=== PATIENT | female | born 1955 | race Caucasian/White ===

== ENCOUNTER 2017-11-09 11:24 | Emergency (ER) | payer OTHER, SELFPAY ==
[2017-11-09 11:25] VITALS: BP 152/85; PULSE 83; RESP 16; TEMP 36.6; O2SAT 98; BMI 34.9
--- NOTE | 2017-11-09 11:53 | VDLE_ITS ---
Reason For Study: PAIN Procedure LEFT Exam performed portable in ED. GSV is normal. A preliminary report was called and/or faxed CFV is compressible, spontaneous, phasic, to ED. competent, and demonstrates normal augmentation. FV is compressible, spontaneous, phasic, competent and demonstrates normal augmentation. POP V is compressible, spontaneous, phasic, competent and demonstrates normal augmentation. T/P Trunk is compressible. PTV is compressible. LT PerV is compressible. Interpretation Summary Deep veins of the left lower extremity are patent and compressible segmentally. There is no evidence of left lower extremity deep vein thrombosis. Valvular competence appears intact within the proximal deep venous system on the left . The left greater saphenous vein appears patent and compressible segmentally. Ordering Physician: LEATHA LYN Referring Physician: VANNESSA MACKENZIE Performed By: Meche Gonzales, ANTON, RVT
--- NOTE | 2017-11-09 11:59 | ED.DCSUM_ITS ---
- ER Visit Summary Date of Service: 11/09/17 Chief Complaint: Left lower extremity pain History of Present Illness: The patient is a 62 F with 2-3 days gradual onset of pain in the left lower extremity, mostly the thigh and the distal lateral calf. She has a history of rheumatoid arthritis and did not know if this was a knee problem or not, so she had a cortisone injection in her left knee yesterday , but it did not seem to help. She denies any swelling. No history of DVT or PE, no chest pain or shortness of breath or other systemic symptoms recently. No recent travel, mobilization, hospitalization, leg injury or other injury. She takes no anticoagulants or antiplatelets. Physical Examination: Vital signs are unremarkable. No tachycardia. She is well-appearing in no distress. Obese. Multiple varicose veins in the left lower extremity, all of which are nontender. No palpable cords. No edema bilaterally. No cellulitis. Mild tenderness in the left lateral calf, but not tender posteriorly and all compartments are soft and nondistended. She has full range of motion of all joints of the left lower extremity. She has an excellent dorsalis pedis pulse in the left lower extremity. No discoloration compared with the right. No petechiae. Test Results: Left lower extremity venous duplex Doppler is negative for clot. Emergency Department Course and Treatment: Although patient was not examining exactly like a DVT, she does have a lot of varicose veins, which is a risk factor for developing spontaneous DVTs. Acute DVT is ruled out at this time, making it much more likely that she is having muscular pain. Supportive care advised, and close outpatient follow-up and she is comfortable with this plan. Treatment Plan: Supportive care Disposition: Discharge home Impression: Left lower extremity pain This note was generated with [employer] dictation software. It may contain incorrect words, spelling, and punctuation that were not noted in review of the chart prior to signing ED Disposition - Plan for ED Patient: Disposition: Home or Assisted Living Chief Complaint: Lower Extremity Injury Instructions: ED Strain Muscle Ext Referrals: Gena Hernandez MD [Primary Care Provider] - 3-5 Days if not improving
== END 2017-11-09 14:05 | disposition home or self-care (01) ==
PROVIDERS: Emergency Provider Emergency Medicine; Family Provider Family Medicine; PCP Family Medicine
DX: M79.662 Pain in left lower leg (principal); M79.652 Pain in left thigh; I83.92 Asymptomatic varicose veins of left lower extremity; M06.9 Rheumatoid arthritis, unspecified
CPT/HCPCS: 93971; 99282

== ENCOUNTER 2022-01-26 09:16 | Outpatient (RCR) | payer MEDICAID, SELFPAY ==
[2022-01-26 09:58] VITALS: BP 169/80; PULSE 95; RESP 16; TEMP 36.4; BMI 42.9
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
== END 2022-01-26 15:39 | disposition home or self-care (01) ==
LOC: WC 09:16
PROVIDERS: PCP Internal Medicine; Visit Provider Internal Medicine
DX: T24.012A Burn of unspecified degree of left thigh, initial encounter (principal); X10.1XXA Contact with hot food, initial encounter; Y92.9 Unspecified place or not applicable
CPT/HCPCS: 99203; G0463

== ENCOUNTER 2025-04-08 20:25 | Observation (INO) | payer MEDICARE, SELFPAY ==
[2025-04-08 20:25] VITALS: BP 136/109; PULSE 128; RESP 16; TEMP 37.1; O2SAT 98
[2025-04-08 20:30] VITALS: BP 136/109; PULSE 128; RESP 16; TEMP 37.1; O2SAT 98; BMI 46.1
[2025-04-08 20:51] LABS: Hematocrit 37.6 % (37-47); Hemoglobin 11.3 g/dL (12.0-15.0); Immature Granulocytes Count 0.070 X10^3/uL (0.0-0.0); Mean Corp Hgb Conc 30.1 g/dL (32-36); Mean Corpuscular Volume 75.2 fL (81-99); Mean Platelet Vol. 11.4 fl (6.2-12.0); NRBC Flagged by Analyzer 0 % (0-5); Platelet Count 482 K/mm3 (150-450); RBC Distribution Width CV 17.3 % (11.6-14.6); RBC Distribution Width SD 45.8 fl (35.1-43.9); Red Blood Count 5.00 M/mm3 (4.2-5.4); White Blood Count 17.1 K/mm3 (4.4-11.0)
[2025-04-08 21:11] LABS: Lipase 15 U/L (13-75)
[2025-04-08 21:12] LABS: AST(SGOT) 32 U/L (<=31); Alanine Aminotransfer ALT/SGPT 15 U/L (<=34); Albumin, Serum 4.1 g/dL (3.4-4.8); Alkaline Phosphatase 68 U/L (35-104); Anion Gap 15 (5-15); BUN 22 mg/dL (4-19); BUN/Creat Ratio 20.6 RATIO (10-20); Calcium,Total 9.3 mg/dL (7.6-11.0); Carbon Dioxide 20.7 mmol/L (21.0-32.0); Chloride 104 mmol/L (98-108); Estimated Creatinine Clearance 64.26 ml/min (50-250); Globulin 3.7 g/dL (2.2-4.2); Glucose 179 mg/dL (70-99); Potassium 4.4 mmol/L (3.3-5.1)
[2025-04-08 22:19] VITALS: BP 176/73; PULSE 102; RESP 16; TEMP 37.1; O2SAT 92
[2025-04-08 22:21] LABS: Mucous, Urine 0 SEEN /hpf (<or=2+); Red Blood Cells-Urine 0 SEEN /hpf (0-5)
[2025-04-08 22:28] LABS: Color, Urine Yellow (Yellow); Glucose, Dipstick Normal (Normal); Ketone-Dipstick 5 mg/dl (Negative); Leukocyte Esterase-Dipstick 25 /ul (Negative); Nitrite-Dipstick Negative (Negative); Occult Blood-Urine Negative /ul (Negative); Protein-Dipstick 30 mg/dl (Negative); Specific Gravity, Urine 1.025 (1.002-1.030)
[2025-04-08 22:31] LABS: Urine Bilirubin Dipstick 1 mg/dL (Negative)
[2025-04-08] MEDS: 0.9% Normal Saline (1000mL) 1,000 ML 999 ML IV (22:33)
--- OUTSIDE RECORDS SUMMARY | 2025-04-08 22:37 | XMS RPT_ITS | CCD ---
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 data to display Anxiety/Depression screening Recommendation: no further intervention at this time Cognitive screening Mini Cog Score: 3 Cognitive screening reviewed and No further action needed (score 3-5). Functional Observation Was the patient's Timed Up AND Go test unsteady or >= 12 seconds? No Advance Care Planning Patient did not wish or was not able to name a surrogate decision maker or provide an advance care plan Measurements BP 141/84 Pulse 90 Ht 163 cm (5' 4.17) Wt 119.5 kg (263 lb 6.4 oz) SpO2 98% BMI 44.97 kg/m? Vision Screening: Follows with optometry/ophthalmology Assessment/Plan Medicare annual wellness visit, subsequent (.) - Counseled on healthy diet and regular exercise - Fall avoidance information provided - Personalized prevention plan provided Reason for Visit FAITH Humphrey is a 69-year-old female presenting for a Medicare Annual Wellness Visit. Milagro reports her general health as good and engages in approximately 30 minutes of exercise daily, including stretching exercises and walking. She estimates walking 8,000-9,000 steps daily around her apartment and can walk continuously for 30 minutes. She denies any feelings of imbalance, sadness, depression, or anxiety, and is excited about her daughter's upcoming visit in June. She follows a healthy diet, finding recipes online, and denies alcohol or tobacco use. She does not drive due to nervousness and fear, preferring to walk instead. She reports no issues with hearing and recently obtained new glasses, stating her vision is pretty good. Milagro takes naloxone 1-2 times daily for pain management and a multivitamin containing vitamin D. She denies symptoms of fatigue, depression, difficulty getting out of bed, cognitive issues, or excessively dry skin. She has not yet completed a living will or advanced directives but plans to discuss this with her daughter during her visit. Social History Tobacco Use Smoking status: Never Smokeless tobacco: Never Vaping Use Vaping status: Never Used Substance Use Topics Alcohol use: No Drug use: No Past medical history, appointments, medications, allergies reviewed. Pertinent Lab/Diagnostic Studies are reviewed and discussed today Current Outpatient Medications: naproxen (NAPROSYN) 500 mg tablet Multivitamin capsule Health Maintenance DTaP,Tdap,Td Vaccine(1 - Tdap) RSV Vaccine(1 - Risk 60-74 years 1-dose series) Mammogram Screening Colorectal Cancer Screening Covid-19 Vaccine( season) Advance Directive Discussion Depression Screening Anxiety Screening@ Review Of Systems Constitutional: (-) fatigue Eyes: (-) visual disturbances Ears/Nose/Mouth/Throat: (-) hearing changes Neck: (-) lumps Genitourinary: (+) urinary frequency Skin: (-) dryness Neurological: (-) balance problems Psychiatric: (-) depression, (-) anxiety Physical Exam BP 141/84 Pulse 90 Ht 163 cm (5' 4.17) Wt 119.5 kg (263 lb 6.4 oz) SpO2 98% BMI 44.97 kg/m? GENERAL: NAD, alert and oriented SKIN: unremarkable, no rash or skin lesions. HEAD: normocephalic EYES: PERRLA, EOMI, conjunctiva clear EARS: external ears normal, canals clear, TM's normal. NOSE/SINUSES: Nares normal. Septum midline. OROPHARYNX: lips, mucosa, and tongue normal, good dentition. No oral lesions noted. NECK: Supple, no lymphadenopathy, normal thyroid, no (more content not included)... Normal [facility] Comprehensive metabolic 2000 panelon 12-23-2024 Albumin [Mass/Vol] 4.1 g/dL Normal 3.9-4.9 [facility] Comment on above: Order Comment: Deisi childers Type: BLOOD SPECIMENOrdering Facility: [facility] Address: [address] [place] [address] Performed By: #### 2 0203-8, 8852-9 ####[facility] LABCLIA [id number] [place] [address] [place] ALP [Catalytic activity/Vol] 66 U/L Normal 34-123 [facility] Comment on above: Order Comment: Speci men Type: BLOOD SPECIMENOrdering Facility: [facility] Address: [address] [place] [place] [id number] Performed By: #### 2 4323-04, 2132-05 ####[facility] LABCLIA [id number] [address] [place] [address] [place] ALT [Catalytic activity/Vol] 14 U/L Normal 7-38 [facility] Comment on above: Order Comment: Speci men Type: BLOOD SPECIMENOrdering Facility: [facility] Address: [address] [place], [place] [address] Performed By: #### 2 4323-04, 2132-05 ####[facility] LABCLIA [id number] [address], [facility] [place] Anion gap [Moles/Vol] 8 mmol/L Normal 8-15 [facility] Comment on above: Order Comment: Speci men Type: BLOOD SPECIMENOrdering Facility: [facility] Address: [address] [place] [id number] Performed By: #### 2 4323-04, 2132-05 ####[facility] LABIA [id number] [place] [address] [place] AST [Catalytic activity/Vol] 21 U/L Normal 13-35 [facility] Comment on above: Order Comment: Speci men Type: BLOOD SPECIMENOrdering Facility: [facility] Address: [address] [place], [place] [address] Performed By: #### 2 4323-04, 2132-05 ####[facility] LABIA [id number] [place] [address] [place] Bilirubin [Mass/Vol] 0.2 mg/dL Normal 0.2-1.3 [facility] Comment on above: Order Comment: Speci men Type: BLOOD SPECIMENOrdering Facility: [facility] Address: [address] [place], [place] [address] Performed By: #### 2 4323-04, 2132-05 ####[facility] LABCLIA [id number] [facility] [place] [id number] [address] [place] Calcium [Mass/Vol] 9.1 mg/dL Normal 8.5-10.2 [facility] Comment on above: Order Comment: Speci men Type: BLOOD SPECIMENOrdering Facility: [facility] Address: [address] [place] [address] Performed By: #### 2 4323-04, 2132-05 ####[facility] LABCLIA [id number] [facility] [address] [place] [address] [place] Chloride [Moles/Vol] 104 mmol/L Normal 98-107 [facility] Comment on above: Order Comment: Speci men Type: BLOOD SPECIMENOrdering Facility: [facility] Address: [address] [place] [address] Performed By: #### 2 4323-04, 2132-05 ####[facility] LABCLIA [id number] [facility] [address] [place] [address] [place] CO2 [Moles/Vol] 27 mmol/L Normal 22-30 [facility] Comment on above: Order Comment: Speci men Type: BLOOD SPECIMENOrdering Facility: [facility] Address: [address] [place], [place] [id number] Performed By: #### 2 4323-04, 2132-05 ####[facility] LABCLIA [id number] [facility] [address] [place] [address] [place] Creatinine [Mass/Vol] 0.85 mg/dL Normal 0.58-0.96 [facility] Comment on above: Order Comment: Speci men Type: BLOOD SPECIMENOrdering Facility: [facility] Address: [address] [place], [place] [address] Performed By: #### 2 4323-04, 2132-05 ####[facility] LABCLIA [id number] [facility] [address] [place] [address] [place] Creatinine and Glomerular filtration rate.predicted panel (S/P/Bld) 75 mL/min/1.73m??? Normal >=60 [facility] Comment on above: Order Comment: Deisi childers Type: BLOOD SPECIMENOrdering Facility: [facility] Address: [address] [place] [address] Result Comment: Lana mated Glomerular Filtration Rate (eGFR) is calculated using the 2020 CKD-EPI creatinine equation. This equation utilizes serum creatinine, sex, and age as parameters. The creatinine assay has traceable calibration to isotope dilution-mass spectrometry. Refer to KDIGO guidelines for clinical interpretation. In patients with unstable renal function, e.g. those with acute kidney injury, the eGFR may not accurately reflect actual GFR. Performed By: #### 2 432-8, 2132-05 ####[facility] LABCLIA [id number] [place] [address] [place] Glucose [Mass/Vol] 103 mg/dL High 74-99 [facility] Comment on above: Order Comment: Deisi childers Type: BLOOD SPECIMENOrdering Facility: [facility] Address: [address] [place] [address] Result Comment: The [place] Diabetes Association (ADA) provides guidance for cutoff values for fasting glucose and random glucose. The ADA defines fasting as no caloric intake for at least 8 hours. Fasting plasma glucose results between 100 to 125 mg/dL indicate increased risk for diabetes (prediabetes). Fasting plasma glucose results greater than or equal to 126 mg/dL meet the criteria for diagnosis of diabetes. In the absence of unequivocal hyperglycemia, results should be confirmed by repeat testing. In a patient with classic symptoms of hyperglycemia or hyperglycemic crisis, random plasma glucose results greater than or equal to 200 mg/dL meet the criteria for diagnosis of diabetes. Reference: Standards of Medical Care in Diabetes 2016, [place] Diabetes Association. Diabetes Care. 2016.39(Suppl 1). Performed By: #### 2 4323-8, 2132-05 ####[facility] LABCLIA [id number] [address] [address] [place] Potassium [Moles/Vol] 5.0 mmol/L Normal 3.7-5.1 [facility] Comment on above: Order Comment: Speci men Type: BLOOD SPECIMENOrdering Facility: [facility] Address: [address] [place] [address] Performed By: #### 2 432-8, 2132-05 ####[facility] LABCLIA [id number] [address] [address] [place] Protein [Mass/Vol] 6.9 g/dL Normal 6.3-8.0 [facility] Comment on above: Order Comment: Speci men Type: BLOOD SPECIMENOrdering Facility: [facility] Address: [address] [place] [address] Performed By: #### 2 4328, 2132-05 ####[facility] LABCLIA [id number] [address] [address] [place] Sodium [Moles/Vol] 139 mmol/L Normal 136-144 [facility] Comment on above: Order Comment: Speci men Type: BLOOD SPECIMENOrdering Facility: [facility] Address: [address] [place] [address] Performed By: #### 2 8, 2132-05 ####[facility] LABCLIA [id number] [address] [address] [place] Urea nitrogen [Mass/Vol] 25 mg/dL High 7-21 [facility] Comment on above: Order Comment: Speci men Type: BLOOD SPECIMENOrdering Facility: [facility] Address: [address] [place], [place] [address] Performed By: #### 2 4323-8, 2132-05 ####[facility] LABCLIA [id number] [address] [address] [place] HbA1c (Bld)on 12-23-2024 Average glucose Estimated from glycated hemoglobin (Bld) [Mass/Vol] 111 mg/dL Normal [facility] Comment on above: Order Comment: Speci men Type: BLOOD SPECIMENOrdering Facility: [facility] Address: [address] [place] [address] Result Comment: eAG: (Estimated average glucose) is a calculated value from HgbA1c and is pest control service representative of the average blood glucose level in the last 2-3 month period. Performed By: #### 5 5454-3 ####[facility] LABCLIA [id number] [place] [address] [place] HbA1c (Bld) [Mass fraction] 5.5 % Normal 4.3-5.6 [facility] Comment on above: Order Comment: Deisi childers Type: BLOOD SPECIMENOrdering Facility: [facility] Address: [address] [place] [address] Result Comment: [place] Diabetes Association guidelines indicate that patients with HgbA1c in the range 5.7-6.4% are at increased risk for development of diabetes, and intervention by lifestyle modification may be beneficial. HgbA1c greater or equal to 6.5% is considered diagnostic of diabetes. Performed By: #### 5 5454-3 ####[facility] LABIA [id number] [place] [address] [place] Vit B12 [facility] 15-2 025 Cobalamin (Vitamin B12) [Mass/Vol] 491 pg/mL Normal 232-1245 [facility] Comment on above: Order Comment: Deisi childers Type: BLOOD SPECIMENOrdering Facility: [facility] Address: [address] [place] [address] Performed By: #### 2 4323-8, 2132-9 ####[facility] LABIA [id number] [place] [address] [place] CNOVon 11-13-2024 CNOV Office Visit (PODIWS ) -------- MILAGRO COTTRELL ([id number]) 1955 F Date Time Provider Department 11/13/24 10:30 AM EMILY RIBERA During your visit today, we recorded the following information about you: Luma Hooks LPN 11/13/2024 1:54 PM Signed AMB ROOMING INTAKE FLOWSHEET DATA Patient presents with: Right Great Toe - Established Patient, Follow Up, procedure Luma ISRA Hooks Matthew 11/13/2024 11:19 AM Signed Your wound is now healed You no longer require a bandage If you have any issues, please contact our office Emily Ribera 11/13/2024 1:54 PM Signed FOLLOW UP PODIATRIC OFFICE VISIT Chief Complaint: This 69 year old who presents for follow up:right great toenail avulsion Patient presents to clinic for follow-up right great toenail avulsion. Patient has no complaints. Patient is doing well. PAIN EVALUATION No data found in the last 1 encounters. Hemoglobin A1C Date Value Ref Range Status 01/14/2024 5.8 (H) 4.3 - 5.6 % Final Comment: [place] Diabetes Association guidelines indicate that patients with HgbA1c in the range 5.7-6.4% are at increased risk for development of diabetes, and intervention by lifestyle modification may be beneficial. HgbA1c greater or equal to 6.5% is considered diagnostic of diabetes. PCP: Olivier Gomes MD PAST MEDICAL HISTORY Diagnosis Date RA (rheumatoid arthritis) ([facility]) Current Outpatient Medications Medication Sig naproxen (NAPROSYN) 500 mg tablet take 1 tablet by mouth twice a day if needed for pain with food Multivitamin capsule Take 1 capsule by mouth once daily. No current facility-administered medications for this visit. ALLERGIES Allergen Reactions Latex Rash Penicillins Rash, Hives, Itching Sulfamethoxazole Itching Tape [Adhesive Tape* Rash paper tape PAST SURGICAL HISTORY Procedure Laterality Date SNGL 05/31/1987 Physical Exam: OBJECTIVE: Constitutional: Pt is a well developed 69 year old female who is alert, oriented, cooperative and in no apparent distress. Eyes: Following during examination. No redness or drainage. Respiratory: RR normal and nonlabored. Even breathing. No evidence of distress. Psychology: Patient is engaged during conversation. Normal affect and mood. Does not appear depressed or anxious. NVSI unchanged from previous visit. Dermatological: Right great toe is now healed s/p total nail avulsion Musculoskeletal/Orthopae dic: Patient has no pain to palpation of right foot ASSESSMENT: (S91.109A) Open wound of toe, initial encounter (primary encounter diagnosis) PLAN: Patient's nail bed is now healed She no longer requires bandage If nail deformity were to return, could consider permanent nail procedure Follow-up prn Emily Ribera DPM Referring Provider: EMILY RIBERA [[id number]] Allergies As of Date: 11/13/2024 Noted Allergy Reaction LATEX 09/22/2024 2 - Rash PENICILLINS 05/20/2018 2 - Rash 4 - Hives 9 - Itching SULFAMETHOXAZOLE 06/23/2022 9 - Itching TAPE (ADHESIVE TAPE (ROSINS)) 06/23/2022 2 - Rash Comments: paper tape Date Reviewed: 11/13/2024 Reviewed by: Luma Hooks LPN - Fully Assessed Reason for Visit: Established Patient [175] Follow Up [171] procedure [Other] Primary Visit Diagnosis:Open wound of toe, initial encounter [S91.109A] Prescriptions as of 11/13/2024 - naproxen (NAPROSYN) 500 mg tablet take 1 tablet by mouth twice a day if needed for pain with food - Multivitamin capsule Take 1 capsule by mouth once daily. Problem List As Of Date 11/13/2024 Noted Resolved Knee pain [M25.569] 12/13/2018 Other instructions from your clinician: Your wound is now healed You no longer require a bandage If you have any issues, please contact our office Encounter Status:Closed by EMILY RIBERA DPM on 11/13/24 [facility] [place] 10-25-2024 IMTIAZN Telephone (PODIWS) -------- MILAGRO COTTRELL ([id number]) 1955 F Date Time Provider Department 10/25/24 EMILY RIBERA During your visit today, we recorded the following information about you: Emily Ribera 10/25/2024 9:05 AM Signed Please call patient to inform her that xrays do not show any acute pathology or fracture TROY Mccabe Amelia, LPN 10/27/2024 3:15 PM Signed Patient notified of results and provider's instructions. Patient verbalizes understanding. Patient states toe is feeling better. Luma Hooks LPN Allergies As of Date: 10/25/2024 Noted Allergy Reaction LATEX 09/22/2024 2 - Rash PENICILLINS 05/20/2018 2 - Rash 4 - Hives 9 - Itching SULFAMETHOXAZOLE 06/23/2022 9 - Itching TAPE (ADHESIVE TAPE (ROSINS)) 06/23/2022 2 - Rash Comments: paper tape Date Reviewed: 10/23/2024 Reviewed by: Natalia De La Garza MA - Fully Assessed Reason for Visit: Results [95] Prescriptions as of 10/27/2024 - naproxen (NAPROSYN) 500 mg tablet take 1 tablet by mouth twice a day if needed for pain with food - Multivitamin capsule Take 1 capsule by mouth once daily. Problem List As Of Date 10/25/2024 Noted Resolved Knee pain [M25.569] 12/13/2018 Encounter Status:Closed by LUMA HOOKS on 10/27/24 [facility] CNOVon 10-23-2024 CNOV Office Visit (PODIWS ) -------- MILAGRO COTTRELL ([id number]) 1955 F Date Time Provider Department 10/23/24 9:30 AM EMILY RIBERA During your visit today, we recorded the following information about you: Natalia De La Garza MA 10/23/2024 10:39 AM Signed Patient presents with: Right Great Toe - New, Pain AMB ROOMING INTAKE FLOWSHEET DATA Pain Pain Level: 8 Pain Location: (Right great toe) Description: Aching, Throbbing Duration Amount of Time: 1 Duration Units: Days Frequency: Intermittent Intervention/Comfort measure: (none) Patient states yesterday she hit her right great toe on a case of water. Patient states it tore her nail. Patient has been keeping a dressing on toe. Dressing removed. Patient's toe is bleeding. Taking no med's for the pain. Emily Ribera 10/23/2024 10:39 AM Signed Initial Podiatric Office Visit: Chief Complaint: This 69 year old female who presents with chief complaint:lifting of right great toenail HPI Patient presents to clinic for evaluation of right great toe States that she stubbed her right great toe on a case of water and this led to lifting of the nail. She states the rigth great toe is now bleeding and the toenail is lifting She complains of thick discolored toenail with pain. PAIN EVALUATION 10/23/2024 0932 Pain Level: 8 Pain Location: -- Right great toe Description: Aching;Throbbing Duration Amount of Time: 1 Duration Units: Days Frequency: Intermittent Intervention/Comfort measure: -- none Hemoglobin A1C (%) Date Value 01/14/2024 5.8 06/24/2022 5.6 PCP: Olivier Gomes MD PAST MEDICAL HISTORY Diagnosis Date RA (rheumatoid arthritis) ([facility]) Current Outpatient Medications Medication Sig naproxen (NAPROSYN) 500 mg tablet take 1 tablet by mouth twice a day if needed for pain with food Multivitamin capsule Take 1 capsule by mouth once daily. No current facility-administered medications for this visit. ALLERGIES Allergen Reactions Latex Rash Penicillins Rash, Hives, Itching Sulfamethoxazole Itching Tape [Adhesive Tape* Rash paper tape PAST SURGICAL HISTORY Procedure Laterality Date SNGL 05/31/1987 FAMILY HISTORY Problem Relation Age of Onset Heart Mother in 2010 Heart Father other (Other) Sister hip replacement Breast Cancer Sister Cancer Brother other (Other) Son back problems Social History Tobacco Use Smoking status: Never Smokeless tobacco: Never Vaping Use Vaping status: Never Used Substance Use Topics Alcohol use: No Drug use: No REVIEW OF SYSTEMS GENERAL: Negative for Malaise, significant weight loss, fever RESPIRATORY: Negative for cough, wheezing and shortness of breath CARDIOVASCULAR: Negative for chest pain, leg swelling and palpitations GI: Negative for abdominal discomfort, blood in stools or black stools and change in bowel habits : Negative for dysuria, frequency and incontinence MUSCULOSKELETAL: Negative for joint pain or swelling, back pain, and muscle pain. SKIN: Negative for lesions, rash, and itching. HEMATOLOGY/LYMPHOLOGY Negative for prolonged bleeding, bruising easily, and swollen nodes. ENDOCRINE: Negative for cold or heat intolerance, polyuria, polydipsia and goiter. NEURO: negative Physical Exam: Constitutional: Pt is a well developed 69 year old female who is alert, oriented and cooperative Eyes: Following during examination. No redness or drainage. Respiratory: RR normal and nonlabored. Even breathing. No evidence of distress or shortness of breath. Psychology: Patient is engaged during conversation. Normal affect and mood. Does not appear depressed or anxious during encounter. Vascular: Dorsalis pedis and posterior tibial pulses palpable as b/l Capillary Fill time < 5 seconds to digits 1-5 b/l Skin temperature warm to warm proximal to distal b/l Hair growth present to digits Neurological: intact light touch/epicritic sensation b/l intact protective sensation no significant neurological deficits Dermatological: Nails 1-5 b/l appear elongated, dystrophic, discolored, painful. Right great toenail is lifting and nail has what appears to be dry blood. Nail was removed and nail bed de. No signs of infection. Webspaces clean and dry 1-4 b/l. Skin appears well hydrated and supple. good color, texture, turgor. No open lesions present. No callosities present. Musculoskeletal/Orthopae dic: Patient has pain to palpation of right great toenail Foot type is neutral structurally AJ ROM is full with knee extended and flexed 1st MPJ is decreaed when loaded and no pain or crepitus are noted with ROM. Large bunion is present to left foot MTJ, STJ are full and free of pain and crepitus. +5/5 muscle strength dorsiflexion, plantarflexion, inversion, eversion b/l Radiographs: n/a ASSESSMENT: (S91.209A) Traumatic (more content not included)... Normal [facility] XR TOE 3V AP/LAT/OBL RTon XR TOE 3V AP/LAT/OBL RT * * *Final Report* * * DATE OF EXAM: Oct 23 2024 11:15AM [id number] [id number] - XR TOE 3V AP/LAT/OBL RT / PROCEDURE REASON: Traumatic avulsion of nail plate of toe, initial encounter * * * * Physician Interpretation * * * * EXAM(s): XR TOE 3V AP/LAT/OBL RT..... HISTORY: 69 years old Clinical information: Traumatic avulsion of nail plate of toe, initial encounter PT STATES RIGHT FOOT GREAT TOE INJURY YESTERDAY. ATTENTION DISTAL PHALANX TECHNIQUE: Images: XR TOE 3V AP/LAT/OBL RT Comparison: 10/17/2019. RESULT: Findings: No fracture. Osteopenia. Degenerative changes of the metatarsophalangeal joint of the great toe and interphalangeal joint of the great, second, and third toes. 3 mm dystrophic calcification, exostosis, or accessory ossicle at the lateral margin of the base of the distal phalanx of the great toe. Degenerative changes also noted in the visualized medial tarsal bones.. IMPRESSION: 1. Osteopenia 2 Osteoarthritis Engraver Steel Plate: PSCB Transcribe Date/Time: Oct 24 2024 3:36P Dictated by : MICKEY GOLDMAN MD This examination was interpreted and the report reviewed and electronically signed by: MICKEY GOLDMAN MD on Oct 24 2024 3:41PM EST [id number] Normal [facility] CNOVon 09-22-2024 CNOV Office Visit (GRISELWS ) -------- MILAGRO COTTRELL ([id number]) 1955 F Date Time Provider Department 09/22/24 1:[address] During your visit today, we recorded the following information about you: Luma Hooks LPN 09/22/2024 1:29 PM Signed AMB ROOMING INTAKE FLOWSHEET DATA Risk Screening Do you have concerns about personal safety or safety in the home?: No Pain Pain Level: 8 Pain Location: Knee-Right Description: Sore Duration Amount of Time: 1 Duration Units: Years Frequency: Continuous Intervention/Comfort measure: Reposition, Relaxation, Medication, Other: See comment (knee brace) Patient presents with: Right Knee - New, Knee Pain ISRA Smith Sondra, PA-C 09/22/2024 1:[address] PA-C Department of Orthopaedics Orthopaedics [address] [facility] [address] Dept: [phone] Dept September 22, [address] Olivier Gomes for an opinion regarding right knee OA. My final recommendations will be communicated back to the requesting physician by way of shared Medical record or letter to requesting physician via US mail. CHIEF COMPLAINT: New and Knee Pain of the Right Knee Ms. Milagro Cottrell is a 69 year old female who presents with worsening pain along the medial aspect of her right knee which has been bothering her for several years. Pain is worse when she first rises after sitting for a long period of time. She also has difficulty when she is walking on uneven ground or uphill. Pain is medial and is an 8 out of 10 aching. She takes naproxen on a regular basis which is beneficial for her knee pain. She also has tried a knee brace but finds it to be ill fitting. She had remote corticosteroid injections in the right knee which she reports lasted her over 1 year. No known injury to the right knee. The patient has been working on weight loss for some time, she follows a low sugar diet and tries to stay active. She enjoys walking outside in the summertime. ASSESSMENT: M17.11 Primary osteoarthritis of right knee (primary encounter diagnosis) M17.10 Arthritis of knee PLAN: She has severe right knee medial compartment osteoarthritis. We discussed trying a repeat corticosteroid injection, advised that she can repeat the injection every 91 days if she finds it to be beneficial. We briefly discussed her surgical options,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 unspecified type Ordered: 02/06/2025 [facility] Work Phone: Comment on above: Ordered: 02/06/2025 End: 06-14-2024 RAJENDRA SCREENING RAJENDRA SCREENING Radiology Routine Encounter for screening mammogram for breast cancer 1 Occurrences starting 05/16/2023 until 06/14/2024 [facility] Work Phone: Comment on above: 1 Occurrences starting 05/16/2023 until 06/14/2024 PFIZER-BIONTECH COVI D-19 VACCINE ( SEASON) AGE 12+ YR PFIZER-BIONTECH COVID-19 VACCINE ( SEASON) AGE 12+ YR Immunization/Injection Routine Encounter for immunization 1 Occurrences starting 01/14/2024 [facility] Work Phone: Comment on above: 1 Occurrences starting 01/14/2024 End: 07-14-2023 Screening mammography bi 2-view breast inc cad RAJENDRA SCREENING Radiology Routine Encounter for screening mammogram for breast cancer 1 Occurrences starting 06/14/2022 until 07/14/2023 [facility] Work Phone: Comment on above: 1 Occurrences starting 06/14/2022 until 07/14/2023 End: 07-24-2025 XR Knee - right 4 Views XR KNEE GENERAL 4V AP BOTH/PA BOTH/LAT/MERC RIGHT Radiology Routine Arthritis of knee 1 Occurrences starting 06/24/2024 until 07/24/2025 [facility] Work Phone: Comment on above: 1 Occurrences starting 06/24/2024 until 07/24/2025 XR Knee - right 4 Views XR KNEE GENERAL 4V AP BOTH/PA BOTH/LAT/MERC RIGHT Radiology Routine Arthritis of knee 06/24/2024 12:45 PM EDT [facility] End: 11-22-2025 XR Toes - right 3 Views XR TOE AP/LAT/OBL RIGHT Radiology Routine Traumatic avulsion of nail plate of toe, initial encounter 1 Occurrences starting 10/23/2024 until 11/22/2025 [facility] Work Phone: Comment on above: 1 Occurrences starting 10/23/2024 until 11/22/2025 XR Toes - right 3 Views XR TOE A P/LAT/OBL RIGHT Radiology Routine Traumatic avulsion of nail plate of toe, initial encounter 10/23/2024 11:15 AM EST [facility] Immunizations Immunization Date Immunization Notes Care Provider [facility] 06-15-2023 influenza virus vaccine, unspecified formulation Olivier Gomes MD Work Phone: [facility] 02-13-2022 zoster vaccine recombinant Olivier Gomes MD Work Phone: [facility] Work Phone: 12-11-2021 pneumococcal (PCV20) vaccine, 20 valent (PREVNAR 20) Olivier Gomes MD Work Phone: [facility] Work Phone: 12-11-2021 zoster vaccine recombinant Olivier Gomes MD Work Phone: [facility] Work Phone: 08-10-2021 influenza, injectabl e, quadrivalent, preservative free Olivier Gomes MD Work Phone: [facility] Work Phone: Payers Date Payer Category Payer Medicare (Managed Care) [facility] DUAL COMPLETE HMO POS SNP [id number] 2024 Unknown [id number] 2022 Medicare [id number] 2017 Medicaid [facility] MEDICAID [facility] COMMUNITY PLAN MEDICAID [id number] 2017-Present [phone] [address] [place] [address] Medicaid [id number] 2017 Medicaid [id number] Self-pay SELF PAY INSURANCE [id number] Unknown SELF PAY INSURANCE [id number] Unknown SELF PAY INSURANCE [id number] Unknown SELF PAY INSURANCE [id number] Social History Date Type Detail Facility Start: 05-20-2018 End: 06-23-2022 Tobacco smoking status NHIS Ex-smoker [facility] Work Phone: Start: 05-20-2018 End: 10-23-2024 Tobacco use and exposure Smokeless tobacco non-user [facility] Work Phone: Start: 01-10-2022 End: 11-13-2024 Alcohol intake Current non-drinker of alcohol (finding) [facility] Start: 1955 Sex Assigned At Not on file [facility] Start: 12-30-2021 End: 06-23-2022 Exposure to SARS-CoV-2 (event) Not sure [facility] Start: 01-26-2022 [facility] ever [facility] Work Phone: Start: 1955 Sex Assigned At Female [facility] Work Phone: History of tobacco use Current smoker [facility] Work Phone: Start: 12-22-2022 End: 06-25-2023 History of Social function [facility] Work Phone: Start: 12-22-2022 End: 06-25-2023 Tobacco use panel [facility] Work Phone: Adult Depression Screening Assessment 0 [facility] Work Phone: Start: 10-23-2024 [facility] Never [facility] tobacco [facility] Clinical Notes 01-10-2022 to 02-06-2025 Telephone Encounter - Chrystal Marti RN - 02/06/2025 2:35 PM EDTTelephone Encounter - Chrystal Marti RN - 02/06/2025 2:35 PM EDTTelephone Encounter - Olivier Gomes MD - 02/06/2025 9:37 AM EDT Note Date & Type Note Facility 02-06-2025 Telephone encounter Note Pt called and is notified of providers results and instructions. Pt voices understanding. Chrystal Babulski, RN [facility] 02-06-2025 Miscellaneous Notes Pt called and is notified of providers results and instructions. Pt voices understanding. Chrystal Marti RN She has mild anemia at 11.2, noted in her chart is the fact that she is taking NSAIDS for knee pain She may be losing blood from gi tract. I would like to order more blood work for her to note the cause of the anemia. Regards, Olivier Gomes MD Patient calling asking for her lab results from labs done mid December please. She was getting concerned since has not gotten a phone call with results yet. Please advise Latest Ref Rng 12/23/2024 WBC 3.70 - 11.00 k/uL 9.17 RBC 3.90 - 5.20 m/uL 4.27 Hemoglobin 11.5 - 15.5 g/dL 11.2 (L) Hematocrit 36.0 - 46.0 % 37.3 MCV 80.0 - 100.0 fL 87.4 MCH 26.0 - 34.0 pg 26.2 MCHC 30.5 - 36.0 g/dL 30.0 (L) RDW-CV 11.5 - 15.0 % 14.1 Platelet Count 150 - 400 k/uL 392 MPV 9.0 - 12.7 fL 11.4 Neut% % 61.4 Abs Neut (ANC) 1.45 - 7.50 k/uL 5.62 Lymph% % 26.3 Abs Lymph 1.00 - 4.00 k/uL 2.41 Loup% % 9.9 Abs Loup <0.87 k/uL 0.91 (H) Eosin% % 1.6 Abs Eosin <0.46 k/uL 0.15 Baso% % 0.5 Abs Baso <0.11 k/uL 0.05 Immature Gran % % 0.3 IMMATURE GRANS (ABS) <0.10 k/uL 0.03 NRBC /100 WBC 0.0 Absolute nRBC <0.01 k/uL <0.01 DTYPE Auto Protein, Total 6.3 - 8.0 g/dL 6.9 Albumin 3.9 - 4.9 g/dL 4.1 Calcium 8.5 - 10.2 mg/dL 9.1 Bilirubin, Total 0.2 - 1.3 mg/dL 0.2 Alkaline Phosphatase 34 - 123 U/L 66 AST 13 - 35 U/L 21 ALT 7 - 38 U/L 14 Glucose 74 - 99 mg/dL 103 (H) BUN 7 - 21 mg/dL 25 (H) Creatinine 0.58 - 0.96 mg/dL 0.85 Sodium 136 - 144 mmol/L 139 Potassium 3.7 - 5.1 mmol/L 5.0 Chloride 98 - 107 mmol/L 104 CO2 22 - 30 mmol/L 27 Anion Gap 8 - 15 mmol/L 8 eGFR >=60 mL/min/1.73m 75 Hemoglobin A1C 4.3 - 5.6 % 5.5 Estimated Average Glucose mg/dL 111 Vitamin B12 232 - 1,245 pg/mL 491 Legend: (L) Low (H) High documented in this encounter [facility] 02-06-2025 Telephone encounter Note She has mild anemia at 11.2, noted in her chart is the fact that she is taking NSAIDS for knee pain She may be losing blood from gi tract. I would like to order more blood work for her to note the cause of the anemia. Regards, Olivier Gomes MD [facility] 02-05-2025 Telephone encounter Note Patient calling asking for her lab results from labs done mid December please. She was getting concerned since has not gotten a phone call with results yet. Please advise Latest Ref Rng 12/23/2024 WBC 3.70 - 11.00 k/uL 9.17 RBC 3.90 - 5.20 m/uL 4.27 Hemoglobin 11.5 - 15.5 g/dL 11.2 (L) Hematocrit 36.0 - 46.0 % 37.3 MCV 80.0 - 100.0 fL 87.4 MCH 26.0 - 34.0 pg 26.2 MCHC 30.5 - 36.0 g/dL 30.0 (L) RDW-CV 11.5 - 15.0 % 14.1 Platelet Count 150 - 400 k/uL 392 MPV 9.0 - 12.7 fL 11.4 Neut% % 61.4 Abs Neut (ANC) 1.45 - 7.50 k/uL 5.62 Lymph% % 26.3 Abs Lymph 1.00 - 4.00 k/uL 2.41 Loup% % 9.9 Abs Loup <0.87 k/uL 0.91 (H) Eosin% % 1.6 Abs Eosin <0.46 k/uL 0.15 Baso% % 0.5 Abs Baso <0.11 k/uL 0.05 Immature Gran % % 0.3 IMMATURE GRANS (ABS) <0.10 k/uL 0.03 NRBC /100 WBC 0.0 Absolute nRBC <0.01 k/uL <0.01 DTYPE Auto Protein, Total 6.3 - 8.0 g/dL 6.9 Albumin 3.9 - 4.9 g/dL 4.1 Calcium 8.5 - 10.2 mg/dL 9.1 Bilirubin, Total 0.2 - 1.3 mg/dL 0.2 Alkaline Phosphatase 34 - 123 U/L 66 AST 13 - 35 U/L 21 ALT 7 - 38 U/L 14 Glucose 74 - 99 mg/dL 103 (H) BUN 7 - 21 mg/dL 25 (H) Creatinine 0.58 - 0.96 mg/dL 0.85 Sodium 136 - 144 mmol/L 139 Potassium 3.7 - 5.1 mmol/L 5.0 Chloride 98 - 107 mmol/L 104 CO2 22 - 30 mmol/L 27 Anion Gap 8 - 15 mmol/L 8 eGFR >=60 mL/min/1.73m 75 Hemoglobin A1C 4.3 - 5.6 % 5.5 Estimated Average Glucose mg/dL 111 Vitamin B12 232 - 1,245 pg/mL 491 Legend: (L) Low (H) High [facility] 12-23-2024 Instructions Olivier Gomes MD - 12/23/2024 11:41 AM EDT We discussed your general health and wellness: - Your general health is good, and you are staying active with stretching exercises and walking. I recommend incorporating 30 minutes of continuous, moderate-intensity exercise at least 5 days a week to reduce your risk of heart attack, stroke, and other health issues. Walking is a great option for this. - Continue eating healthy meals. You are doing well finding healthy recipes online. Keep this up to maintain your overall health. - Your blood pressure was slightly elevated today, but we will monitor it. No immediate changes are needed. We discussed your medications: - You are currently taking naloxone for pain as needed, up to twice daily. You do not need a refill at this time. I will check your kidney function with blood work today to ensure it is safe to continue this medication. - You declined starting cholesterol or thyroid medications at this time, which is reasonable given your current health and lack of symptoms. We will continue to monitor these levels. We discussed your lab work: - Please complete the blood work I ordered today. This includes tests to monitor your kidney function, A1c (to check for diabetes), B12, liver function, and blood counts. Your vitamin D levels were good previously, so I am not rechecking them. We discussed advanced directives: - It is important to complete a living will and healthcare power of civil rights attorney. This document allows you to designate someone to make medical decisions for you if you are unable to do so. You mentioned waiting for your daughter to return home in June to discuss this with her. Please prioritize completing this once she is home. We discussed your memory: - You did not score well on your memory test today. I recommend a full memory assessment to evaluate this further, but you declined at this time. Let me know if you change your mind. Follow-up: - I will see you back in 6 months for a follow-up visit. Please complete your blood work today at the lab downstairs. documented in this encounter [facility] 12-23-2024 Note HNO ID: [id number] Author: OLIVIER GOMES MD Service: ? Author Type: Physician Type: Progress Notes Filed: 12/23/2024 12:02 Note Text: Milagro Cottrell is a 69 year old female here for a Medicare wellness visit. Medicare Health Risk Assessment General Health Good Exercise: Minutes/Day 30 mins Exercise: Days/Week Patient notes she does a lot of walking, sometimes just around the apartment,. She keeps busy, does not sit around and do anything Alcohol: Daily Use She does not drink alcohol Alcohol: Drinks/Day None Alcohol: 6 or more drinks None Feel off balance She does not feel off balance much Concerns: Teeth/Dentures No Concerns: Sexual function No Troubled by feelings No Frequency: Eating healthy diet She is not eating healthy most of the time ADLs requiring help She is not eating healthy stuff on line. Safety precautions in home/vehicle No Smoke, vape, chews tobacco No Difficulty hearing No Difficulty seeing No Current Providers Specialists: I have reviewed specialist-related care of the patient in the medical record. Medical/Family history review Reviewed and updated problem list, medical/surgical/family/social history, medications, and allergies. Opioid use review Opioid Medications (last 90 days) No data to display Anxiety/Depression screening Recommendation: no further intervention at this time Cognitive screening Mini Cog Score: 3 Cognitive screening reviewed and No further action needed (score 3-5). Functional Observation Was the patient's Timed Up AND Go test unsteady or >= 12 seconds? No Advance Care Planning Patient did not wish or was not able to name a surrogate decision maker or provide an advance care plan Measurements BP 141/84 Pulse 90 Ht 163 cm (5' 4.17) Wt 119.5 kg (263 lb 6.4 oz) SpO2 98% BMI 44.97 kg/m? Vision Screening: Follows with optometry/ophthalmology Assessment/Plan Medicare annual wellness visit, subsequent (Z00.00) - Counseled on healthy diet and regular exercise - Fall avoidance information provided - Personalized prevention plan provided Reason for Visit FAITH Humphrey is a 69-year-old female presenting for a Medicare Annual Wellness Visit. Milagro reports her general health as good and engages in approximately 30 minutes of exercise daily, including stretching exercises and walking. She estimates walking 8,000-9,000 steps daily around her apartment and can walk continuously for 30 minutes. She denies any feelings of imbalance, sadness, depression, or anxiety, and is excited about her daughter's upcoming visit in June. She follows a healthy diet, finding recipes online, and denies alcohol or tobacco use. She does not drive due to nervousness and fear, preferring to walk instead. She reports no issues with hearing and recently obtained new glasses, stating her vision is pretty good. Milagro takes naloxone 1-2 times daily for pain management and a multivitamin containing vitamin D. She denies symptoms of fatigue, depression, difficulty getting out of bed, cognitive issues, or excessively dry skin. She has not yet completed a living will or advanced directives but plans to discuss this with her daughter during her visit. Social History Tobacco Use Smoking status: Never Smokeless tobacco: Never Vaping Use Vaping status: Never Used Substance Use Topics Alcohol use: No Drug use: No Past medical history, appointments, medications, allergies reviewed. Pertinent Lab/Diagnostic Studies are reviewed and discussed today Current Outpatient Medications: naproxen (NAPROSYN) 500 mg tablet Multivitamin capsule Health Maintenance DTaP,Tdap,Td Vaccine(1 - Tdap) RSV Vaccine(1 - Risk 60-74 years 1-dose series) Mammogram Screening Colorectal Cancer Screening Covid-19 Vaccine( season) Advance Directive Discussion Depression Screening Anxiety Screening@ Review Of Systems Constitutional: (-) fatigue Eyes: (-) visual disturbances Ears/Nose/Mouth/Throat: (-) hearing changes Neck: (-) lumps Genitourinary: (+) urinary frequency Skin: (-) dryness Neurological: (-) balance problems Psychiatric: (-) depression, (-) anxiety Physical Exam BP 141/84 Pulse 90 Ht 163 cm (5' 4.17) Wt 119.5 kg (263 lb 6.4 oz) SpO2 98% BMI 44.97 kg/m? GENERAL: NAD, alert and oriented SKIN: unremarkable, no rash or skin lesions. HEAD: normocephalic EYES: PERRLA, EOMI, conjunctiva clear EARS: external ears normal, canals clear, TM's normal. NOSE/SINUSES: Nares normal. Septum midline. OROPHARYNX: lips, mucosa, and tongue normal, good dentition. No oral lesions noted. NECK: Supple, no lymphadenopathy, normal thyroid, no carotid bruits. LUNGS: Clear to auscultation bilaterally, no wheezes/rhonchi/rales. HEART: Regular rate and rhythm, no murmurs. No ectopy. EXTREMITIES: Normal, No deformities, No skin discoloration, No edema. NEURO: Awake, alert and oriented x3, cranial n (more content not included)... [facility] 12-23-2024 History of Presen t illness Narrative Images from the original note were not included. Milagro Cottrell is a 69 year old female here for a Medicare wellness visit. Medicare Health Risk Assessment General Health Good Exercise: Minutes/Day 30 mins Exercise: Days/Week Patient notes she does a lot of walking, sometimes just around the apartment,. She keeps busy, does not sit around and do anything Alcohol: Daily Use She does not drink alcohol Alcohol: Drinks/Day None Alcohol: 6 or more drinks None Feel off balance She does not feel off balance much Concerns: Teeth/Dentures No Concerns: Sexual function No Troubled by feelings No Frequency: Eating healthy diet She is not eating healthy most of the time ADLs requiring help She is not eating healthy stuff on line. Safety precautions in home/vehicle No Smoke, vape, chews tobacco No Difficulty hearing No Difficulty seeing No Current Providers Specialists: I have reviewed specialist-related care of the patient in the medical record. Medical/Family history review Reviewed and updated problem list, medical/surgical/family/social history, medications, and allergies. Opioid use review Opioid Medications (last 90 days) No data to display Anxiety/Depression screening Recommendation: no further intervention at this time Cognitive screening Mini Cog Score: 3 Cognitive screening reviewed and No further action needed (score 3-5). Functional Observation Was the patient's Timed Up & Go test unsteady or >= 12 seconds? No Advance Care Planning Patient did not wish or was not able to name a surrogate decision maker or provide an advance care plan Measurements BP 141/84 Pulse 90 Ht 163 cm (5' 4.17) Wt 119.5 kg (263 lb 6.4 oz) SpO2 98% BMI 44.97 kg/m Vision Screening: Follows with optometry/ophthalmology Assessment/Plan Medicare annual wellness visit, subsequent (Z00.00) - Counseled on healthy diet and regular exercise - Fall avoidance information provided - Personalized prevention plan provided Reason for Visit FAITH Humphrey is a 69-year-old female presenting for a Medicare Annual Wellness Visit. Milagro reports her general health as good and engages in approximately 30 minutes of exercise daily, including stretching exercises and walking. She estimates walking 8,000-9,000 steps daily around her apartment and can walk continuously for 30 minutes. She denies any feelings of imbalance, sadness, depression, or anxiety, and is excited about her daughter's upcoming visit in June. She follows a healthy diet, finding recipes online, and denies alcohol or tobacco use. She does not drive due to nervousness and fear, preferring to walk instead. She reports no issues with hearing and recently obtained new glasses, stating her vision is pretty good. Milagro takes naloxone 1-2 times daily for pain management and a multivitamin containing vitamin D. She denies symptoms of fatigue, depression, difficulty getting out of bed, cognitive issues, or excessively dry skin. She has not yet completed a living will or advanced directives but plans to discuss this with her daughter during her visit. Social History Tobacco Use Smoking status: Never Smokeless tobacco: Never Vaping Use Vaping status: Never Used Substance Use Topics Alcohol use: No Drug use: No Past medical history, appointments, medications, allergies reviewed. Pertinent Lab/Diagnostic Studies are reviewed and discussed today Current Outpatient Medications: naproxen (NAPROSYN) 500 mg tablet Multivitamin capsule Health Maintenance DTaP,Tdap,Td Vaccine(1 - Tdap) RSV Vaccine(1 - Risk 60-74 years 1-dose series) Mammogram Screening Colorectal Cancer Screening Covid-19 Vaccine(2023- season) Advance Directive Discussion Depression Screening Anxiety Screening@ Review Of Systems Constitutional: (-) fatigue Eyes: (-) visual disturbances Ears/Nose/Mouth/Throat: (-) hearing changes Neck: (-) lumps Genitourinary: (+) urinary frequency Skin: (-) dryness Neurological: (-) balance problems Psychiatric: (-) depression, (-) anxiety Physical Exam BP 141/84 Pulse 90 Ht 163 cm (5' 4.17) Wt 119.5 kg (263 lb 6.4 oz) SpO2 98% BMI 44.97 kg/m GENERAL: NAD, alert and oriented SKIN: unremarkable, no rash or skin lesions. HEAD: normocephalic EYES: PERRLA, EOMI, conjunctiva clear EARS: external ears normal, canals clear, TM's normal. NOSE/SINUSES: Nares normal. Septum midline. OROPHARYNX: lips, mucosa, and tongue normal, good dentition. No oral lesions noted. NECK: Supple, no lymphadenopathy, normal thyroid, no carotid bruits. LUNGS: Clear to auscultation bilaterally, no wheezes/rhonchi/rales. HEART: Regular rate and rhythm, no murmurs. No ectopy. EXTREMITIES: Normal, No deformities, No skin discoloration, No edema. NEURO: Awake, alert and oriented x3, cranial nerves II-XII grossly intact, normal gait, no involuntary motions Labs: - Cholesterol: Elevated - A1c: Mildly pre-diabetic - T3: Normal - T4: Normal - Vitamin D: Normal Assessment and Plan 1. Medicare annual wellness visit, subsequent (Z00.00) Completed Medicare annual wellness visit. Patient reports good general health, engages in daily exercise including stretching and walking, and follows a healthy diet. No alcohol or tobacco use. No issues with balance, mood, hearing, or vision. Does not drive. No living will or advanced directives in place. - Educated patient on the importance of creating a living will and advanced directives; patient plans to discuss with her daughter in June. - Recommended 30 minutes of continuous moderate-intensity exercise 5 days a week to reduce risk of heart attack, stroke, and improve overall health. - Scheduled follow-up in 6 months. 2. Encounter for monitoring chronic NSAID therapy (Z51.81) Patient is taking NSAIDs twice daily for pain management. - Ordered blood work to monitor kidney function. 3. Mixed hyperlipidemia (E78.2) Cholesterol levels are elevated. Patient declines cholesterol medication. - Emphasized the importance of exercise and a healthy diet to manage cholesterol levels. 4. Elevated TSH (R79.89) TSH levels are elevated, but T3 and T4 are within normal limits. Patient denies symptoms of fatigue, depression, or dry skin. - Monitor thyroid function; no immediate treatment necessary. 5. Vitamin B12 deficiency (E53.8) Patient takes a multivitamin containing vitamin D. - Ordered blood work to check vitamin B12 levels. 6. Prediabetes (R73.03) A1c levels indicate mild prediabetes. - Ordered blood work to recheck A1c levels. - Reinforced the importance of regular exercise and a healthy diet to manage blood sugar levels. 7. Essential (primary) hypertension (I10) Blood pressure readings are on the higher side. - Recheck blood pressure. Voice recognition software was used to compose this office note. Please excuse any unintended typographical errors. Recording using ambient AI software for draft documentation of the visit was discussed with the patient/authorized pest control service representative; all questions welcomed and answered. Patient/authorized pest control service representative agreed to proceed Olivier Gomes MD documented in this encounter [facility] 11-13-2024 Note HNO ID: [id number] Author: EMILY RIBERA, ? Service: ? Author Type: Physician Type: Progress Notes Filed: 11/13/2024 13:54 Note Text: FOLLOW UP PODIATRIC OFFICE VISIT Chief Complaint: This 69 year old who presents for follow up:right great toenail avulsion Patient presents to clinic for follow-up right great toenail avulsion. Patient has no complaints. Patient is doing well. PAIN EVALUATION No data found in the last 1 encounters. Hemoglobin A1C Date Value Ref Range Status 01/14/2024 5.8 (H) 4.3 - 5.6 % Final Comment: [place] [employer] guidelines indicate that patients with HgbA1c in the range 5.7-6.4% are at increased risk for development of diabetes, and intervention by lifestyle modification may be beneficial. HgbA1c greater or equal to 6.5% is considered diagnostic of diabetes. PCP: Olivier Gomes MD PAST MEDICAL HISTORY Diagnosis Date RA (rheumatoid arthritis) (FORM[facility]) Current Outpatient Medications Medication Sig naproxen (NAPROSYN) 500 mg tablet take 1 tablet by mouth twice a day if needed for pain with food Multivitamin capsule Take 1 capsule by mouth once daily. No current facility-administered medications for this visit. ALLERGIES Allergen Reactions Latex Rash Penicillins Rash, Hives, Itching Sulfamethoxazole Itching Tape [Adhesive Tape* Rash paper tape PAST SURGICAL HISTORY Procedure Laterality Date SNGL 05/31/1987 Physical Exam: OBJECTIVE: Constitutional: Pt is a well developed 69 year old female who is alert, oriented, cooperative and in no apparent distress. Eyes: Following during examination. No redness or drainage. Respiratory: RR normal and nonlabored. Even breathing. No evidence of distress. Psychology: Patient is engaged during conversation. Normal affect and mood. Does not appear depressed or anxious. NVSI unchanged from previous visit. Dermatological: Right great toe is now healed s/p total nail avulsion Musculoskeletal/Orthopaedic: Patient has no pain to palpation of right foot ASSESSMENT: (S91.109A) Open wound of toe, initial encounter (primary encounter diagnosis) PLAN: Patient's nail bed is now healed She no longer requires bandage If nail deformity were to return, could consider permanent nail procedure Follow-up araceli Ribera DPM [facility] 11-13-2024 History of Presen t illness Narrative FOLLOW UP PODIATRIC OFFICE VISIT Chief Complaint: This 69 year old who presents for follow up:right great toenail avulsion Patient presents to clinic for follow-up right great toenail avulsion. Patient has no complaints. Patient is doing well. PAIN EVALUATION No data found in the last 1 encounters. Hemoglobin A1C Date Value Ref Range Status 01/14/2024 5.8 (H) 4.3 - 5.6 % Final Comment: [place] [employer] guidelines indicate that patients with HgbA1c in the range 5.7-6.4% are at increased risk for development of diabetes, and intervention by lifestyle modification may be beneficial. HgbA1c greater or equal to 6.5% is considered diagnostic of diabetes. PCP: Olivier Gomes MD PAST MEDICAL HISTORY Diagnosis Date RA (rheumatoid arthritis) ([facility]) Current Outpatient Medications Medication Sig naproxen (NAPROSYN) 500 mg tablet take 1 tablet by mouth twice a day if needed for pain with food Multivitamin capsule Take 1 capsule by mouth once daily. No current facility-administered medications for this visit. ALLERGIES Allergen Reactions Latex Rash Penicillins Rash, Hives, Itching Sulfamethoxazole Itching Tape [Adhesive Tape* Rash paper tape PAST SURGICAL HISTORY Procedure Laterality Date SNGL 05/31/1987 Physical Exam: OBJECTIVE: Constitutional: Pt is a well developed 69 year old female who is alert, oriented, cooperative and in no apparent distress. Eyes: Following during examination. No redness or drainage. Respiratory: RR normal and nonlabored. Even breathing. No evidence of distress. Psychology: Patient is engaged during conversation. Normal affect and mood. Does not appear depressed or anxious. NVSI unchanged from previous visit. Dermatological: Right great toe is now healed s/p total nail avulsion Musculoskeletal/Orthopaedic: Patient has no pain to palpation of right foot ASSESSMENT: (S91.109A) Open wound of toe, initial encounter (primary encounter diagnosis) PLAN: Patient's nail bed is now healed She no longer requires bandage If nail deformity were to return, could consider permanent nail procedure Follow-up prn Emily Ribera DPM AMB ROOMING INTAKE FLOWSHEET DATA Patient presents with: Right Great Toe - Established Patient, Follow Up, procedure Luma Hooks LPN documented in this encounter [facility] 11-13-2024 Instructions Emily Ribera - 11/13/2024 11:19 AM EST Your wound is now healed You no longer require a bandage If you have any issues, please contact our office documented in this encounter [facility] 11-13-2024 Note HNO ID: [id number] Author: LUMA HOOKS LPN Service: ? Author Type: LICENSED NURSE Type: Progress Notes Filed: 11/13/2024 13:54 Note Text: AMB ROOMING INTAKE FLOWSHEET DATA Patient presents with: Right Great Toe - Established Patient, Follow Up, procedure Luma Hooks LPN [facility] 10-27-2024 Telephone encounter Note Patient notified of results and provider's instructions. Patient verbalizes understanding. Patient states toe is feeling better. Luma Hooks LPN [facility] Work Phone: 10-27-2024 Miscellaneous Notes Patient notified of results and provider's instructions. Patient verbalizes understanding. Patient states toe is feeling better. Luma Hooks LPN Please call patient to inform her that xrays do not show any acute pathology or fracture Emily Ribera DPM documented in this encounter [facility] 10-25-2024 Telephone encounter Note Please call patient to inform her that xrays do not show any acute pathology or fracture Emily Ribera DPM [facility] Work Phone: 10-23-2024 History of Presen t illness Narrative Radiology Service Progress Note PATIENT NAME: Milagro Cottrell DATE OF SERVICE: October 23, 2024 TIME: 11:53 AM PATIENT IDENTITY VERIFICATION COMPLETED USING TWO (2) IDENTIFIERS: Name and Date of confirmed by patient verbally. FALL SCREENING: Has the patient had 2 falls in the last year or 1 fall with injury or currently using an Ambulatory Assistive Device (Walker, Cane, Wheelchair, Crutches, etc.)? No PATIENT GENDER DATA: Assigned female at . status: : No status: NO. PATIENT RELEVANT IMPLANT DATA REVIEWED: Not Applicable PATIENT PRESENTS WITH AN IMPLANTABLE OR ATTACHED TESTER PRINTED CIRCUIT BOARDS: No RADIOLOGY DEPARTMENT: General X-ray: Exam(s) Completed: Lower Extremity X-Ray(s): Toes, Right, GREAT TOE PERIPHERAL IV DATA: Not applicable SIGNED BY: PRIYA Lanza) October 23, 2024 11:53 AM documented in this encounter [facility] 10-23-2024 Note HNO ID: [id number] Author: KAREN EDWARDS RT(R) Service: ? Author Type: Technologist Type: Progress Notes Filed: 10/23/2024 11:54 Note Text: Radiology Service Progress Note PATIENT NAME: Milagro Cottrell DATE OF SERVICE: October 23, 2024 TIME: 11:53 AM PATIENT IDENTITY VERIFICATION COMPLETED USING TWO (2) IDENTIFIERS: Name and Date of confirmed by patient verbally. FALL SCREENING: Has the patient had 2 falls in the last year or 1 fall with injury or currently using an Ambulatory Assistive Device (Walker, Cane, Wheelchair, Crutches, etc.)? No PATIENT GENDER DATA: Assigned female at . status: : No status: NO. PATIENT RELEVANT IMPLANT DATA REVIEWED: Not Applicable PATIENT PRESENTS WITH AN IMPLANTABLE OR ATTACHED TESTER PRINTED CIRCUIT BOARDS: No RADIOLOGY DEPARTMENT: General X-ray: Exam(s) Completed: Lower Extremity X-Ray(s): Toes, Right, GREAT TOE PERIPHERAL IV DATA: Not applicable SIGNED BY: Karen Edwards, RT(R) October 23, 2024 11:53 AM [facility] 10-23-2024 Note HNO ID: [id number] Author: LUMA HOOKS LPN Service: ? Author Type: LICENSED NURSE Type: Progress Notes Filed: 10/23/2024 10:39 Note Text: UNIVERSAL PROTOCOL / SAFETY CHECKLIST Procedure to be Performed: Total nail avulsion, right great toe Sign In: A Moment of CARE was completed. Personnel directly involved with the procedure wore the appropriate PPE (Personal Protective Equipment). No special equipment needed. Patient/Surrogate Stated/Verified: PATIENT VERIFIED(optional for EMERGENT procedures): Patient name, Date of , Relevant allergies, and The intended procedure Time Out Communication: Intended patient and procedure match the source documents. Consent documented and matches the intended procedure. Relevant labs, photos, and/or imaging studies have been reviewed. Correct side/site marked and visible. Medications required for procedure verified. No fire risk assessment and interventions applicable. No implant(s) inserted. Sign Out: SIGN OUT (optional for EMERGENT procedures): No specimen collected. All instruments, equipment, possible retained foreign bodies accounted for. Post-procedure follow-up management communicated and Plan of Care Visit completed when applicable. Luma Hooks LPN [facility] 10-23-2024 History of Presen t illness Narrative UNIVERSAL PROTOCOL / SAFETY CHECKLIST Procedure to be Performed: Total nail avulsion, right great toe Sign In: A Moment of CARE was completed. Personnel directly involved with the procedure wore the appropriate PPE (Personal Protective Equipment). No special equipment needed. Patient/Surrogate Stated/Verified: PATIENT VERIFIED(optional for EMERGENT procedures): Patient name, Date of , Relevant allergies, and The intended procedure Time Out Communication: Intended patient and procedure match the source documents. Consent documented and matches the intended procedure. Relevant labs, photos, and/or imaging studies have been reviewed. Correct side/site marked and visible. Medications required for procedure verified. No fire risk assessment and interventions applicable. No implant(s) inserted. Sign Out: SIGN OUT (optional for EMERGENT procedures): No specimen collected. All instruments, equipment, possible retained foreign bodies accounted for. Post-procedure follow-up management communicated and Plan of Care Visit completed when applicable. Luma Hooks LPN Images from the original note were not included. Initial Podiatric Office Visit: Chief Complaint: This 69 year old female who presents with chief complaint:lifting of right great toenail HPI Patient presents to clinic for evaluation of right great toe States that she stubbed her right great toe on a case of water and this led to lifting of the nail. She states the rigth great toe is now bleeding and the toenail is lifting She complains of thick discolored toenail with pain. PAIN EVALUATION 10/23/2024 0932 Pain Level: 8 Pain Location: -- Right great toe Description: Aching;Throbbing Duration Amount of Time: 1 Duration Units: Days Frequency: Intermittent Intervention/Comfort measure: -- none Hemoglobin A1C (%) Date Value 01/14/2024 5.8 06/24/2022 5.6 PCP: Olivier Gomes MD PAST MEDICAL HISTORY Diagnosis Date RA (rheumatoid arthritis) ([facility]) Current Outpatient Medications Medication Sig naproxen (NAPROSYN) 500 mg tablet take 1 tablet by mouth twice a day if needed for pain with food Multivitamin capsule Take 1 capsule by mouth once daily. No current facility-administered medications for this visit. ALLERGIES Allergen Reactions Latex Rash Penicillins Rash, Hives, Itching Sulfamethoxazole Itching Tape [Adhesive Tape* Rash paper tape PAST SURGICAL HISTORY Procedure Laterality Date SNGL 05/31/1987 FAMILY HISTORY Problem Relation Age of Onset Heart Mother in 2010 Heart Father other (Other) Sister hip replacement Breast Cancer Sister Cancer Brother other (Other) Son back problems Social History Tobacco Use Smoking status: Never Smokeless tobacco: Never Vaping Use Vaping status: Never Used Substance Use Topics Alcohol use: No Drug use: No REVIEW OF SYSTEMS GENERAL: Negative for Malaise, significant weight loss, fever RESPIRATORY: Negative for cough, wheezing and shortness of breath CARDIOVASCULAR: Negative for chest pain, leg swelling and palpitations GI: Negative for abdominal discomfort, blood in stools or black stools and change in bowel habits : Negative for dysuria, frequency and incontinence MUSCULOSKELETAL: Negative for joint pain or swelling, back pain, and muscle pain. SKIN: Negative for lesions, rash, and itching. HEMATOLOGY/LYMPHOLOGY Negative for prolonged bleeding, bruising easily, and swollen nodes. ENDOCRINE: Negative for cold or heat intolerance, polyuria, polydipsia and goiter. NEURO: negative Physical Exam: Constitutional: Pt is a well developed 69 year old female who is alert, oriented and cooperative Eyes: Following during examination. No redness or drainage. Respiratory: RR normal and nonlabored. Even breathing. No evidence of distress or shortness of breath. Psychology: Patient is engaged during conversation. Normal affect and mood. Does not appear depressed or anxious during encounter. Vascular: Dorsalis pedis and posterior tibial pulses palpable as b/l Capillary Fill time < 5 seconds to digits 1-5 b/l Skin temperature warm to warm proximal to distal b/l Hair growth present to digits Neurological: intact light touch/epicritic sensation b/l intact protective sensation no significant neurological deficits Dermatological: Nails 1-5 b/l appear elongated, dystrophic, discolored, painful. Right great toenail is lifting and nail has what appears to be dry blood. Nail was removed and nail bed de. No signs of infection. Webspaces clean and dry 1-4 b/l. Skin appears well hydrated and supple. good color, texture, turgor. No open lesions present. No callosities present. Musculoskeletal/Orthopaedic: Patient has pain to palpation of right great toenail Foot type is neutral structurally AJ ROM is full with knee extended and flexed 1st MPJ is decreaed when loaded and no pain or crepitus are noted with ROM. Large bunion is present to left foot MTJ, STJ are full and free of pain and crepitus. +5/5 muscle strength dorsiflexion, plantarflexion, inversion, eversion b/l Radiographs: n/a ASSESSMENT: (S91.209A) Traumatic avulsion of nail plate of toe, initial encounter (primary encounter diagnosis) (B35.1) Onychomycosis (M79.675) Pain in toe of left foot (M79.674) Pain in toe of right foot PLAN: 1. History and physical examination performed. 2. Discussed the appearance of right great toenail. The nail plate is lifting with active bleeding. I informed patient that I suspect the problem was that the nails are elongated and caught the edge of her case of water at the leading edge of the nail thereby avulsing the nail. At this time, I feel it is best to remove the entire nail and inspect the nail bed. 3. She has no pain in the toe other than the nail. Discussed getting xrays. She elected to get xrays of the right great toe. 4. Discussed removal of the nail. Discussed r/b/a. She consents to total nail avulsion of right great toenail. Discussed risks of toenail procedure not limited to infection, pain, swelling, bleeding, painful scarring, recurrence, need for revised procedure. Patient consented to proceed. Patient was properly identified by name and procedure. The right hallux was then injected with 3 cc of 1% lidocaine plain. The toe was then prepped and draped in the usual aseptic technique. A digital tournicot was applied to the toe. The entire nail border was then freed and removed. Careful inspection was performed to assure no remaining spicule present. Avulsion was performed. Inspection of the nail bed revealed no signs of open wound or signs of infection. Sterile dressing was then applied consisting of amerigel, guaze, sam and coban. Tournicot was removed and hyperemic response was noted. Patient tolerated well. Patient will f/u in 2 weeks. 5. We discussed the possible etiologies of discolored, dystrophic, and thickened nails including fungus, yeast, mold as well as in some instances, prior trauma, or mechanical causes such as repetitive microtrauma in shoe gear. We discussed topical medication for discolored toenails which has very low success but no major side effects. We discussed oral medication. Patient will need hepatic testing prior to use. Patient informed of risks associated with Lamisil. We discussed removal of toenails. Patient would like to proceed with debridement. Debridement of toenails 2-5 right and 1-5 left. Emily Ribera DPM Podiatry [address] [facility] [address] Dept: [phone] Dept Patient presents with: Right Great Toe - New, Pain AMB ROOMING INTAKE FLOWSHEET DATA Pain Pain Level: 8 Pain Location: (Right great toe) Description: Aching, Throbbing Duration Amount of Time: 1 Duration Units: Days Frequency: Intermittent Intervention/Comfort measure: (none) Patient states yesterday she hit her right great toe on a case of water. Patient states it tore her nail. Patient has been keeping a dressing on toe. Dressing removed. Patient's toe is bleeding. Taking no med's for the pain. documented in this encounter [facility] 10-23-2024 Instructions Emily Ribera - 10/23/2024 10:02 AM EST Post-Op Nail Instructions Minimize activity until the anesthesia wears off (about 2-8 hours). Increase activity to tolerance Remove bandage tomorrow Soak affected toe/foot in epsom salts for 15-20 minutes twice daily After soaking, apply antibiotic ointment (OTC Neosporin) to affected toe and re bandage OTC Ibuprofen if having pain, provided you have no allergies or intolerance to NSAIDS Mild drainage, redness, and blood is expected, but if you expeirence severe pain, increase in drainage, swelling, or red streaking please contact our office immediately Feel free to contact office as well if you have any questions/concerns [phone], ask for Podiatry Nurse documented in this encounter [facility] 10-23-2024 Note HNO ID: [id number] Author: EMILY RIBERA, ? Service: ? Author Type: Physician Type: Progress Notes Filed: 10/23/2024 10:39 Note Text: Initial Podiatric Office Visit: Chief Complaint: This 69 year old female who presents with chief complaint:lifting of right great toenail HPI Patient presents to clinic for evaluation of right great toe States that she stubbed her right great toe on a case of water and this led to lifting of the nail. She states the rigth great toe is now bleeding and the toenail is lifting She complains of thick discolored toenail with pain. PAIN EVALUATION 10/23/2024 0932 Pain Level: 8 Pain Location: -- Right great toe Description: Aching;Throbbing Duration Amount of Time: 1 Duration Units: Days Frequency: Intermittent Intervention/Comfort measure: -- none Hemoglobin A1C (%) Date Value 01/14/2024 5.8 06/24/2022 5.6 PCP: Olivier Gomes MD PAST MEDICAL HISTORY Diagnosis Date RA (rheumatoid arthritis) ([facility]) Current Outpatient Medications Medication Sig naproxen (NAPROSYN) 500 mg tablet take 1 tablet by mouth twice a day if needed for pain with food Multivitamin capsule Take 1 capsule by mouth once daily. No current facility-administered medications for this visit. ALLERGIES Allergen Reactions Latex Rash Penicillins Rash, Hives, Itching Sulfamethoxazole Itching Tape [Adhesive Tape* Rash paper tape PAST SURGICAL HISTORY Procedure Laterality Date SNGL 05/31/1987 FAMILY HISTORY Problem Relation Age of Onset Heart Mother in 2010 Heart Father other (Other) Sister hip replacement Breast Cancer Sister Cancer Brother other (Other) Son back problems Social History Tobacco Use Smoking status: Never Smokeless tobacco: Never Vaping Use Vaping status: Never Used Substance Use Topics Alcohol use: No Drug use: No REVIEW OF SYSTEMS GENERAL: Negative for Malaise, significant weight loss, fever RESPIRATORY: Negative for cough, wheezing and shortness of breath CARDIOVASCULAR: Negative for chest pain, leg swelling and palpitations GI: Negative for abdominal discomfort, blood in stools or black stools and change in bowel habits : Negative for dysuria, frequency and incontinence MUSCULOSKELETAL: Negative for joint pain or swelling, back pain, and muscle pain. SKIN: Negative for lesions, rash, and itching. HEMATOLOGY/LYMPHOLOGY Negative for prolonged bleeding, bruising easily, and swollen nodes. ENDOCRINE: Negative for cold or heat intolerance, polyuria, polydipsia and goiter. NEURO: negative Physical Exam: Constitutional: Pt is a well developed 69 year old female who is alert, oriented and cooperative Eyes: Following during examination. No redness or drainage. Respiratory: RR normal and nonlabored. Even breathing. No evidence of distress or shortness of breath. Psychology: Patient is engaged during conversation. Normal affect and mood. Does not appear depressed or anxious during encounter. Vascular: Dorsalis pedis and posterior tibial pulses palpable as b/l Capillary Fill time < 5 seconds to digits 1-5 b/l Skin temperature warm to warm proximal to distal b/l Hair growth present to digits Neurological: intact light touch/epicritic sensation b/l intact protective sensation no significant neurological deficits Dermatological: Nails 1-5 b/l appear elongated, dystrophic, discolored, painful. Right great toenail is lifting and nail has what appears to be dry blood. Nail was removed and nail bed de. No signs of infection. Webspaces clean and dry 1-4 b/l. Skin appears well hydrated and supple. good color, texture, turgor. No open lesions present. No callosities present. Musculoskeletal/Orthopaedic: Patient has pain to palpation of right great toenail Foot type is neutral structurally AJ ROM is full with knee extended and flexed 1st MPJ is decreaed when loaded and no pain or crepitus are noted with ROM. Large bunion is present to left foot MTJ, STJ are full and free of pain and crepitus. +5/5 muscle strength dorsiflexion, plantarflexion, inversion, eversion b/l Radiographs: n/a ASSESSMENT: (S91.209A) Traumatic avulsion of nail plate of toe, initial encounter (primary encounter diagnosis) (B35.1) Onychomycosis (M79.675) Pain in toe of left foot (M79.674) Pain in toe of right foot PLAN: 1. History and physical examination performed. 2. Discussed the appearance of right great toenail. The nail plate is lifting with active bleeding. I informed patient that I suspect the problem was that the nails are elongated and caught the edge of her case of water at the leading edge of the nail thereby avulsing the nail. At this time, I feel it is best to remove the entire nail and inspect the nail bed. 3. She has no pain in the toe other than the nail. Discussed getting xrays. She elected to get xrays of the right great toe. 4. Discussed removal of th (more content not included)... [facility] 10-23-2024 Note HNO ID: [id number] Author: NATALIA DE LA GARZA MA Service: ? Author Type: Director Statistical Programming Type: Progress Notes Filed: 10/23/2024 10:39 Note Text: Patient presents with: Right Great Toe - New, Pain AMB ROOMING INTAKE FLOWSHEET DATA Pain Pain Level: 8 Pain Location: (Right great toe) Description: Aching, Throbbing Duration Amount of Time: 1 Duration Units: Days Frequency: Intermittent Intervention/Comfort measure: (none) Patient states yesterday she hit her right great toe on a case of water. Patient states it tore her nail. Patient has been keeping a dressing on toe. Dressing removed. Patient's toe is bleeding. Taking no med's for the pain. [facility] 09-22-2024 Note HNO ID: [id number] Author: MELINDA LANE PA-C Service: ? Author Type: Physician Staple Cutter Type: Progress Notes Filed: 09/22/2024 13:29 Note Text: Melinda Lane PA-C Department of Orthopaedics Orthopaedics [facility] [address] [facility] [address] Dept: [phone] Dept September 22, [address] Olivier Gomes for an opinion regarding right knee OA. My final recommendations will be communicated back to the requesting physician by way of shared Medical record or letter to requesting physician via [place] mail. CHIEF COMPLAINT: New and Knee Pain of the Right Knee Ms. Milagro Cottrell is a 69 year old female who presents with worsening pain along the medial aspect of her right knee which has been bothering her for several years. Pain is worse when she first rises after sitting for a long period of time. She also has difficulty when she is walking on uneven ground or uphill. Pain is medial and is an 8 out of 10 aching. She takes naproxen on a regular basis which is beneficial for her knee pain. She also has tried a knee brace but finds it to be ill fitting. She had remote corticosteroid injections in the right knee which she reports lasted her over 1 year. No known injury to the right knee. The patient has been working on weight loss for some time, she follows a low sugar diet and tries to stay active. She enjoys walking outside in the summertime. ASSESSMENT: M17.11 Primary osteoarthritis of right knee (primary encounter diagnosis) M17.10 Arthritis of knee PLAN: She has severe right knee medial compartment osteoarthritis. We discussed trying a repeat corticosteroid injection, advised that she can repeat the injection every 91 days if she finds it to be beneficial. We briefly discussed her surgical options, advised her that in order to be a candidate for a total knee arthroplasty we may need to work on weight loss. Patient would like to try the corticosteroid injection and advises that she will continue to work on weight loss. Ms. Milagro Cottrell was advised as to contrast therapies and/or to take analgesics/anti-inflammatories as needed and all contraindications were reviewed. OBJECTIVE: Ms. Milagro Cottrell is a pleasant 69 year old in no apparent distress. Gen:There were no vitals taken for this visit. nl development, obese, no deformities ENT: Normocephalic, normal hearing, moist mucosa CV: Pulses:DP/PT= 2+ and symmetric, capillary refill < 2 secs, no peripheral edema/varicosities Skin: no rash, bruising or lesions. Good turgor. Psych: cooperative and appropriate, alert and oriented x 3, good mood and affect. Musculoskeletal: KNEE EXAM: Right: Alignment: Varus deformity, Partially Correctable Range of motion is 5 degrees in extension and 110 degrees of flexion. Extension Lag: < 10 degrees Pain with ROM: No Effusion: Slight Tender to the palpation of Medial femoral condyle and Medial joint line Pain with patellar compression: No Stability: Anterior/Posterior stable and Varus/Valgus stable Hip Exam: flexion to 100+ degrees, full extension, internal/external rotation adequate, and no pain with log roll Neurovascular Status: Sensation Intact, Moves foot and ankle up AND down, and 2+ dorsalis pedis In addition to the comprehensive evaluation, assessment and plan outlined above, and as a distinct and separate element to the visit today, separate from TKA discussion, weight loss dicussion , we have made the determination to proceed with an injection to aid in the management of the patient's condition. We discussed the risks, benefits, alternatives and expected outcomes of this injection in detail, and the patient agreed to proceed. The procedure was performed as detailed below. Large Joint Arthro/Inj: R knee joint Informed Consent Consent Obtained: Verbal Troy Protocol A moment to CARE was completed. SIGN IN Sign in communication not applicable due to emergent procedure. Personnel directly involved with the procedure wore the appropriate PPE. Special Equipment: N/A Patient/Surrogate Stated/Verified: Patient name, Date of , Relevant allergies and Intended procedure TIME OUT Relevant labs, photos, and/or imaging studies have been reviewed. Intended patient and procedure match the source document(s). Consent documented and matches the intended procedure. Correct side/site marked and visible. Medications required for procedure verified. No fire risk assessment and interventions applicable. No implant(s) inserted.09/22/2024 1:28 PM The procedure site was prepped in the usual sterile fashion. Site: R knee joint Medications: 6 mg betamethasone acetate-betamethasone sodium phosphate 6 mg/mL Anesthetics: 5 mL lidocaine (PF) 10 mg/mL (1 %) Outcome: Tolerated well, no immediate complications Post-injection instructions were reviewed with the patient and the patient voiced understanding of (more content not included)... [facility] 09-22-2024 History of Presen t illness Narrative Associated Order(s): Large Joint Arthro/Inj: R knee joint Post-Procedure Diagnose(s): Primary osteoarthritis of right knee Melinda Lane PA-C Department of Orthopaedics Orthopaedics [address] [facility] [address] Dept: [phone] Dept September 22, [address] Olivier Gomes for an opinion regarding right knee OA. My final recommendations will be communicated back to the requesting physician by way of shared Medical record or letter to requesting physician via [place] mail. CHIEF COMPLAINT: New and Knee Pain of the Right Knee Ms. Milagro Cottrell is a 69 year old female who presents with worsening pain along the medial aspect of her right knee which has been bothering her for several years. Pain is worse when she first rises after sitting for a long period of time. She also has difficulty when she is walking on uneven ground or uphill. Pain is medial and is an 8 out of 10 aching. She takes naproxen on a regular basis which is beneficial for her knee pain. She also has tried a knee brace but finds it to be ill fitting. She had remote corticosteroid injections in the right knee which she reports lasted her over 1 year. No known injury to the right knee. The patient has been working on weight loss for some time, she follows a low sugar diet and tries to stay active. She enjoys walking outside in the summertime. ASSESSMENT: M17.11 Primary osteoarthritis of right knee (primary encounter diagnosis) M17.10 Arthritis of knee PLAN: She has severe right knee medial compartment osteoarthritis. We discussed trying a repeat corticosteroid injection, advised that she can repeat the injection every 91 days if she finds it to be beneficial. We briefly discussed her surgical options, advised her that in order to be a candidate for a total knee arthroplasty we may need to work on weight loss. Patient would like to try the corticosteroid injection and advises that she will continue to work on weight loss. Ms. Milagro Cottrell was advised as to contrast therapies and/or to take analgesics/anti-inflammatories as needed and all contraindications were reviewed. OBJECTIVE: Ms. Milagro Cottrell is a pleasant 69 year old in no apparent distress. Gen:There were no vitals taken for this visit. nl development, obese, no deformities ENT: Normocephalic, normal hearing, moist mucosa CV: Pulses:DP/PT= 2+ and symmetric, capillary refill < 2 secs, no peripheral edema/varicosities Skin: no rash, bruising or lesions. Good turgor. Psych: cooperative and appropriate, alert and oriented x 3, good mood and affect. Musculoskeletal: KNEE EXAM: Right: Alignment: Varus deformity, Partially Correctable Range of motion is 5 degrees in extension and 110 degrees of flexion. Extension Lag: < 10 degrees Pain with ROM: No Effusion: Slight Tender to the palpation of Medial femoral condyle and Medial joint line Pain with patellar compression: No Stability: Anterior/Posterior stable and Varus/Valgus stable Hip Exam: flexion to 100+ degrees, full extension, internal/external rotation adequate, and no pain with log roll Neurovascular Status: Sensation Intact, Moves foot and ankle up & down, and 2+ dorsalis pedis In addition to the comprehensive evaluation, assessment and plan outlined above, and as a distinct and separate element to the visit today, separate from TKA discussion, weight loss dicussion , we have made the determination to proceed with an injection to aid in the management of the patient's condition. We discussed the risks, benefits, alternatives and expected outcomes of this injection in detail, and the patient agreed to proceed. The procedure was performed as detailed below. Large Joint Arthro/Inj: R knee joint Informed Consent Consent Obtained: Verbal Troy Protocol A moment to CARE was completed. SIGN IN Sign in communication not applicable due to emergent procedure. Personnel directly involved with the procedure wore the appropriate PPE. Special Equipment: N/A Patient/Surrogate Stated/Verified: Patient name, Date of , Relevant allergies and Intended procedure TIME OUT Relevant labs, photos, and/or imaging studies have been reviewed. Intended patient and procedure match the source document(s). Consent documented and matches the intended procedure. Correct side/site marked and visible. Medications required for procedure verified. No fire risk assessment and interventions applicable. No implant(s) inserted.09/22/2024 1:28 PM The procedure site was prepped in the usual sterile fashion. Site: R knee joint Medications: 6 mg betamethasone acetate-betamethasone sodium phosphate 6 mg/mL Anesthetics: 5 mL lidocaine (PF) 10 mg/mL (1 %) Outcome: Tolerated well, no immediate complications Post-injection instructions were reviewed with the patient and the patient voiced understanding of these instructions. SIGN OUT No specimen collected. All instruments, equipment, possible retained foreign bodies accounted for. Post-procedure follow-up management communicated and Plan of Care Visit completed when applicable Imaging: IMPRESSION: Severe right knee osteoarthritis. Engraver Steel Plate: HERI Transcribe Date/Time: Jul 02 2024 7:45A Dictated by : KAYLIE MOY MD This examination was interpreted and the report reviewed and electronically signed by: KAYLIE MOY MD on Jul 02 2024 7:46AM EST Results-Findings * * *Final Report* * * DATE OF EXAM: Jun 24 2024 12:45PM WOX [id number] - XR KNEE 4V AP/PA BOTH+LAT/TMAARA RT / PROCEDURE REASON: Arthritis of knee * * * * Physician Interpretation * * * * EXAMINATION: XR KNEE 4V AP/PA BOTH+LAT/TAMARA RT HISTORY: Chronic right medial knee pain that has increased over time without injury Arthritis of knee . TECHNIQUE: XR KNEE 4V AP/PA BOTH+LAT/TAMARA RT Laterality: RIGHT Number of different views (projections): 4 M: XB_1 COMPARISON: 12/04/2018 RESULT: Severe narrowing in the right medial compartment with mild genu varus deformity. Mild degenerative changes in the lateral and patellofemoral compartments. No significant joint effusion. Advanced osteoarthritis in the left lateral compartment. No acute fracture or dislocation. There are no bony erosions. Supporting Subjective Information Below: Past Surgical History: PAST SURGICAL HISTORY Procedure Laterality Date SNGL 05/31/1987 Medications: Current Outpatient Medications Medication Sig naproxen (NAPROSYN) 500 mg tablet take 1 tablet by mouth twice a day if needed for pain with food Multivitamin capsule Take 1 capsule by mouth once daily. No current facility-administered medications for this visit. Allergies: Latex, Penicillins, Sulfamethoxazole, and Tape [Adhesive Tape (Rosins)] ROS: General (negative for fatigue, malaise, weight loss/gain) HEENT (negative for headache, earache, recent vision changes, sinus pain, sore throat) Respiratory (no recent shortness of breath, hemoptysis) CV (negative for chest tightness, palpitations) Musculoskeletal (see HPI) Psych (no depression, anxiety) This note was partially generated using [employer] voice recognition system, and there may be some incorrect words, spellings, and punctuation that were not noted in checking the note before saving. Melinda Lane PA-C AMB ROOMING INTAKE FLOWSHEET DATA Risk Screening Do you have concerns about personal safety or safety in the home?: No Pain Pain Level: 8 Pain Location: Knee-Right Description: Sore Duration Amount of Time: 1 Duration Units: Years Frequency: Continuous Intervention/Comfort measure: Reposition, Relaxation, Medication, Other: See comment (knee brace) Patient presents with: Right Knee - New, Knee Pain Luma Hooks LPN documented in this encounter [facility] 09-22-2024 Note HNO ID: [id number] Author: LUMA HOOKS LPN Service: ? Author Type: LICENSED NURSE Type: Progress Notes Filed: 09/22/2024 13:29 Note Text: AMB ROOMING INTAKE FLOWSHEET DATA Risk Screening Do you have concerns about personal safety or safety in the home?: No Pain Pain Level: 8 Pain Location: Knee-Right Description: Sore Duration Amount of Time: 1 Duration Units: Years Frequency: Continuous Intervention/Comfort measure: Reposition, Relaxation, Medication, Other: See comment (knee brace) Patient presents with: Right Knee - New, Knee Pain Luma ISRA Hooks [facility] 07-10-2024 Note HNO ID: [id number] Author: TAMIA SERRANO MA Service: ? Author Type: Director Statistical Programming Type: Progress Notes Filed: 07/10/2024 08:54 Note Text: POPULATION HEALTH NAVIGATION OUTREACH Action/FYI Letter received and sent to be mailed. Navigation Signature: Tamia Serrano MA July 10, 2024 8:54 AM [facility] 07-07-2024 Note HNO ID: [id number] Author: KRISTEL HERNANDEZ MA Service: ? Author Type: Director Statistical Programming Type: Progress Notes Filed: 07/07/2024 16:21 Note Text: POPULATION HEALTH NAVIGATION OUTREACH Action/FYI no answer letter mailed MEDICARE WELLNESS APPT FLIP COLONOSCOPY MAMMOGRAMS Reason for Outreach Care Gap/HCC or Scheduling Wellness Visits Care Gaps due: Medicare Annual Wellness Visit Breast Cancer Screening Colorectal Cancer Screening Patient Contacted: Unable or unnecessary to reach patient: Unable to leave message Letter mailed Navigation Signature: Kristel Hernandez MA July 07, 2024 11:03 AM [facility] 07-07-2024 History of Presen t illness Narrative POPULATION HEALTH NAVIGATION OUTREACH Action/FYI no answer letter mailed MEDICARE WELLNESS APPT FLIP COLONOSCOPY MAMMOGRAMS Reason for Outreach Care Gap/HCC or Scheduling Wellness Visits Care Gaps due: Medicare Annual Wellness Visit Breast Cancer Screening Colorectal Cancer Screening Patient Contacted: Unable or unnecessary to reach patient: Unable to leave message Letter mailed Navigation Signature: Kristel Hernandez MA July 07, 2024 11:03 AM documented in this encounter [facility] 07-07-2024 Note Patient Outreach (HITESH KIM) MILAGRO COTTRELL ([id number]) 1955 F Date Time Provider Department 07/07/24 KRISTEL HERNANDEZ NETNAV During your visit today, we recorded the following information about you: Kristel Hernandez MA 07/07/2024 4:21 PM Signed POPULATION HEALTH NAVIGATION OUTREACH Action/FYI no answer letter mailed MEDICARE WELLNESS APPT FLIP COLONOSCOPY MAMMOGRAMS Reason for Outreach Care Gap/HCC or Scheduling Wellness Visits Care Gaps due: Medicare Annual Wellness Visit Breast Cancer Screening Colorectal Cancer Screening Patient Contacted: Unable or unnecessary to reach patient: Unable to leave message Letter mailed Navigation Signature: Kristel Hernandez MA July 07, 2024 11:03 AM Tamia Serrano MA 07/10/2024 8:54 AM Signed POPULATION HEALTH NAVIGATION OUTREACH Action/FYI Letter received and sent to be mailed. Navigation Signature: Tamia Serrano MA July 10, 2024 8:54 AM Allergies As of Date: 07/07/2024 Noted Allergy Reaction PENICILLINS 05/20/2018 2 - Rash 4 - Hives 9 - Itching SULFAMETHOXAZOLE 06/23/2022 9 - Itching TAPE (ADHESIVE TAPE (ROSINS)) 06/23/2022 2 - Rash Comments: paper tape Date Reviewed: 06/24/2024 Reviewed by: May Tobar MA - Fully Assessed Reason for Visit: Population Health Navigation Outreach [3910] Cmt: [facility] WORKBENCTerrance MONTANEZ PCSA Prescriptions as of 07/10/2024 - naproxen (NAPROSYN) 500 mg tablet take 1 tablet by mouth twice a day if needed for pain with food - Multivitamin capsule Take 1 capsule by mouth once daily. Problem List As Of Date 07/07/2024 Noted Resolved Knee pain [M25.569] 12/13/2018 Encounter Status:Closed by KRISTEL HERNANDEZ on 07/07/24 [facility] 07-03-2024 Telephone encounter Note Called and updated patient, is not having any symptoms and will wait until next visit to review need for thyroid medication. Katya Mancia LPN July 03, 2024 2:32 PM [facility] 07-03-2024 Telephone encounter Note ----- Message from Olivier Gomes MD sent at 07/02/2024 6:04 PM EDT ----- Milagro, Your thyroid numbers are still elevated which means that you need to probably start on her thyroid medication if you have symptoms of being tired, gaining weight, being constipated more than usual, having very dry skin, feeling tired or depressed. If you do not have any of the symptoms we can watch and repeat the thyroid when you come in next time. If you do have any of the symptoms and my staff will help you make an appointment to start the medication. RegardsOlivier MD [facility] 07-03-2024 Miscellaneous Notes Called and updated patient, is not having any symptoms and will wait until next visit to review need for thyroid medication. Katya Mancia LPN July 03, 2024 2:32 PM ----- Message from Olivier Gomes MD sent at 07/02/2024 6:04 PM EDT ----- Milagro, Your thyroid numbers are still elevated which means that you need to probably start on her thyroid medication if you have symptoms of being tired, gaining weight, being constipated more than usual, having very dry skin, feeling tired or depressed. If you do not have any of the symptoms we can watch and repeat the thyroid when you come in next time. If you do have any of the symptoms and my staff will help you make an appointment to start the medication. Olivier Conde MD documented in this encounter [facility] 07-03-2024 Telephone encounter Note Called and updated patient, has appointment with Orthopaedics in September. Katya Mancia LPN July 03, 2024 2:31 PM [facility] 07-03-2024 Telephone encounter Note ----- Message from Olivier Gomes MD sent at 07/02/2024 6:05 PM EDT ----- Milagro You need to see an orthopedic because you have severe arthritis of the right knee. It may help you to take an injection of steroid or hyaluronic acid in there if you want to alleviate some pain. Replacement of the knee is another option but with your morbid obesity a lot of surgeons will not be open for that option. If you would like to the see a sports medicine doctor or an orthopedic to give an injection let us know and we will place a consult Regards, Olivier Gomes MD [facility] 07-03-2024 Miscellaneous Notes Called and updated patient, has appointment with Orthopaedics in September. Katya Mancia LPN July 03, 2024 2:31 PM ----- Message from Olivier Gomes MD sent at 07/02/2024 6:05 PM EDT ----- Milagro You need to see an orthopedic because you have severe arthritis of the right knee. It may help you to take an injection of steroid or hyaluronic acid in there if you want to alleviate some pain. Replacement of the knee is another option but with your morbid obesity a lot of surgeons will not be open for that option. If you would like to the see a sports medicine doctor or an orthopedic to give an injection let us know and we will place a consult Regards, Olivier Gomes MD documented in this encounter [facility] 06-26-2024 Telephone encounter Note Requesting 90 day supply. Patient has been identified by name and date of : Yes Patient phones for refill(s): Requested Prescriptions Pending Prescriptions Disp Refills naproxen (NAPROSYN) 500 mg tablet [Pharmacy Med Name: NAPROXEN 500 MG TABLET] 180 tablet 5 Sig: take 1 tablet by mouth twice a day if needed for pain with food Date of last office visit in primary care: 06/24/2024 Date of next office visit in primary care: 12/23/2024 Please advise. Thank you. Kaleigh Cordoba LPN. [facility] 06-26-2024 Miscellaneous Notes Requesting 90 day supply. Patient has been identified by name and date of : Yes Patient phones for refill(s): Requested Prescriptions Pending Prescriptions Disp Refills naproxen (NAPROSYN) 500 mg tablet [Pharmacy Med Name: NAPROXEN 500 MG TABLET] 180 tablet 5 Sig: take 1 tablet by mouth twice a day if needed for pain with food Date of last office visit in primary care: 06/24/2024 Date of next office visit in primary care: 12/23/2024 Please advise. Thank you. Kaleigh Cordoba LPN. documented in this encounter [facility] 06-24-2024 History of Presen t illness Narrative Radiology Service Progress Note PATIENT NAME: Milagro Cottrell DATE OF SERVICE: June 24, 2024 TIME: 12:30 PM PATIENT IDENTITY VERIFICATION COMPLETED USING TWO (2) IDENTIFIERS: Name and Date of confirmed by patient verbally. FALL SCREENING: Has the patient had 2 falls in the last year or 1 fall with injury or currently using an Ambulatory Assistive Device (Walker, Cane, Wheelchair, Crutches, etc.)? No PATIENT GENDER DATA: Female. status: : No status: NO. PATIENT RELEVANT IMPLANT DATA REVIEWED: Yes PATIENT PRESENTS WITH AN IMPLANTABLE OR ATTACHED TESTER PRINTED CIRCUIT BOARDS: No RADIOLOGY DEPARTMENT: General X-ray: Exam(s) Completed: Lower Extremity X-Ray(s): Knee, AP / Lat / Tunne / Merchant Right and Wt. Bearing PERIPHERAL IV DATA: Not applicable SIGNED BY: PRIYA Michael) June 24, 2024 12:30 PM documented in this encounter [facility] 06-24-2024 Note HNO ID: [id number] Author: UMAIR VALLEJO RT(R) Service: Radiology Author Type: Technologist Type: Progress Notes Filed: 06/24/2024 12:46 Note Text: Radiology Service Progress Note PATIENT NAME: Milagro Cottrell DATE OF SERVICE: June 24, 2024 TIME: 12:30 PM PATIENT IDENTITY VERIFICATION COMPLETED USING TWO (2) IDENTIFIERS: Name and Date of confirmed by patient verbally. FALL SCREENING: Has the patient had 2 falls in the last year or 1 fall with injury or currently using an Ambulatory Assistive Device (Walker, Cane, Wheelchair, Crutches, etc.)? No PATIENT GENDER DATA: Female. status: : No status: NO. PATIENT RELEVANT IMPLANT DATA REVIEWED: Yes PATIENT PRESENTS WITH AN IMPLANTABLE OR ATTACHED TESTER PRINTED CIRCUIT BOARDS: No RADIOLOGY DEPARTMENT: General X-ray: Exam(s) Completed: Lower Extremity X-Ray(s): Knee, AP / Lat / Tunne / Merchant Right and Wt. Bearing PERIPHERAL IV DATA: Not applicable SIGNED BY: RT Fernanda(Juan) June 24, 2024 12:30 PM [facility] 06-24-2024 History of Presen t illness Narrative Images from the original note were not included. Milagro Cottrell is a 69 year old female here for a Medicare wellness visit. Medicare Health Risk Assessment General Health Good Exercise: Minutes/Day An hour. Exercise: Days/Week 7 Alcohol: Daily Use No Alcohol: Drinks/Day No Alcohol: 6 or more drinks No Feel off balance No Concerns: Teeth/Dentures No Concerns: Sexual function No Troubled by feelings No Frequency: Eating healthy diet Chicken, turkey, fish. Cottage cheese low fat ADLs requiring help No Safety precautions in home/vehicle No Smoke, vape, chews tobacco No Difficulty hearing No Difficulty seeing N o Current Providers Specialists: I have reviewed specialist-related care of the patient in the medical record. Medical/Family history review Reviewed and updated problem list, medical/surgical/family/social history, medications, and allergies. Opioid use review Opioid Medications (last 90 days) No data to display Anxiety/Depression screening Recommendation: no further intervention at this time Cognitive screening /5 Cognitive screening reviewed and No further action needed (score 3-5). Functional Observation Was the patient's Timed Up & Go test unsteady or >= 12 seconds? No Advance Care Planning We discussed the importance of this and gave her paper work to fill out Measurements BP 122/80 Pulse 87 Resp 16 Ht 163 cm (5' 4.17) Wt 117.5 kg (259 lb) BMI 44.22 kg/m Vision Screening: Follows with optometry/ophthalmology Assessment/Plan Medicare annual wellness visit, subsequent (Z00.00) - Counseled on healthy diet and regular exercise - Fall avoidance information provided - Personalized prevention plan providedReason for Visit Patient presents with: Follow Up Milagro Cottrell is a 69 year old female who presents here today for Above Complaints.. Health Maintenance RSV Vaccine(1 - Risk 60-74 years 1-dose series) Mammogram Screening Colorectal Cancer Screening Influenza Vaccine(1) Covid-19 Vaccine(2023- season) HPI Milagro is a 69-year-old female with a past medical history of hyperlipidemia, knee pain, morbid obesity 3 months ago she had given labs and her LDL was 178 HDL was 57 good to bad ratios were 3.12. patients thyroid was mildly elevated last visit Knee arthritis: she has medial and patellar compartment arthritis, which hurts when she walks long distance. It starts getting aggravated, after 5/10 mins of walking. Walking up a hill is the worst pain she gets, sometimes coming down the hill puts a strain too. No problem-specific Assessment & Plan notes found for this encounter. PAST MEDICAL HISTORY Diagnosis Date RA (rheumatoid arthritis) (HCC) PAST SURGICAL HISTORY Procedure Laterality Date SNGL 05/31/1987 FAMILY HISTORY Problem Relation Age of Onset Heart Mother in 2010 other (Other) Sister hip replacement Cancer Brother Breast Cancer Sister other (Other) Son back problems Social History Tobacco Use Smoking status: Former Smokeless tobacco: Never Substance Use Topics Alcohol use: No Drug use: No Past medical history, appointments, medications, allergies reviewed. Pertinent Lab/Diagnostic Studies are reviewed and discussed today Current Outpatient Medications: naproxen (NAPROSYN) 500 mg tablet Multivitamin capsule Review of Systems CONSTITUTIONAL: No fevers, chills night sweats, unintended weight loss CARDIOVASCULAR: No chest pain, dyspnea, palpitations, orthopnea, PND, ankle edema. PULM: No dyspnea, unexplained cough. GI: No dysphagia/odynophagia, problematic reflux, constipation, diarrhea, changes in stool habits, hematochezia, melena. : No new urinary complaints, including dysuria, gross hematuria or pyuria. NEURO: No new balance problems, peripheral weakness/paresthesias or numbness of concern. Physical Exam BP 122/80 Pulse 87 Resp 16 Ht 163 cm (5' 4.17) Wt 117.5 kg (259 lb) BMI 44.22 kg/m General appearance: Well appearing, alert, in no acute distress, well nourished. Skin: Skin color, texture, turgor normal, no suspicious rashes or lesions Head: Normocephalic, no masses, lesions, tenderness or abnormalities Eyes: Anicteric sclera. Pupils are equally round and reactive to light. Extraocular movements are intact. Lungs: Lungs clear to auscultation. No wheezing, rhonchi, rales Heart: RRR without murmur, gallop, or rubs. Extremities: No deformities, edema, skin discoloration, clubbing or cyanosis. Good capillary refill. ASSESSMENT/PLAN: 1. Medicare annual wellness visit, subsequent - ICD9: V70.0, ICD10: Z00.00 (primary diagnosis) - Counseled on healthy diet and regular exercise 2. Arthritis of knee - ICD9: 716.96, ICD10: M17.10 May benefit from repeat xr and shot - XR KNEE GENERAL 4V AP BOTH/PA BOTH/LAT/MERC RIGHT - CONSULT TO SPORTS MEDICINE 3. Vitamin D deficiency - ICD9: 268.9, ICD10: E55.9 - VITAMIN D 25 HYDROXY 4. Weight gain - ICD9: 783.1, ICD10: R63.5 Recheck tsh as it was eleated - THYROID STIMULATING HORMONE 5. Fatigue, unspecified type - ICD9: 780.79, ICD10: R53.83 - THYROID STIMULATING HORMONE 6. Elevated TSH - ICD9: 794.5, ICD10: R79.89 Recheck 7. Knee pain, unspecified chronicity, unspecified laterality - ICD9: 719.46, ICD10: M25.569 GFR is being monitored, it sis in the 90 - NAPROXEN 500 MG TABLET 8. Advanced care planning/counseling discussion - ICD9: V65.49, ICD10: Z71.89 Gave her paper work and Olivier Gomes MD documented in this encounter [facility] 06-24-2024 Note HNO ID: [id number] Author: OLIVIER GOMES MD Service: ? Author Type: Physician Type: Progress Notes Filed: 06/24/2024 12:39 Note Text: Milagro Cottrell is a 69 year old female here for a Medicare wellness visit. Medicare Health Risk Assessment General Health Good Exercise: Minutes/Day An hour. Exercise: Days/Week 7 Alcohol: Daily Use No Alcohol: Drinks/Day No Alcohol: 6 or more drinks No Feel off balance No Concerns: Teeth/Dentures No Concerns: Sexual function No Troubled by feelings No Frequency: Eating healthy diet Chicken, turkey, fish. Cottage cheese low fat ADLs requiring help No Safety precautions in home/vehicle No Smoke, vape, chews tobacco No Difficulty hearing No Difficulty seeing N o Current Providers Specialists: I have reviewed specialist-related care of the patient in the medical record. Medical/Family history review Reviewed and updated problem list, medical/surgical/family/social history, medications, and allergies. Opioid use review Opioid Medications (last 90 days) No data to display Anxiety/Depression screening Recommendation: no further intervention at this time Cognitive screening 4/5 Cognitive screening reviewed and No further action needed (score 3-5). Functional Observation Was the patient's Timed Up AND Go test unsteady or >= 12 seconds? No Advance Care Planning We discussed the importance of this and gave her paper work to fill out Measurements BP 122/80 Pulse 87 Resp 16 Ht 163 cm (5' 4.17) Wt 117.5 kg (259 lb) BMI 44.22 kg/m? Vision Screening: Follows with optometry/ophthalmology Assessment/Plan Medicare annual wellness visit, subsequent (Z00.00) - Counseled on healthy diet and regular exercise - Fall avoidance information provided - Personalized prevention plan providedReason for Visit Patient presents with: Follow Up Milagro Cottrell is a 69 year old female who presents here today for Above Complaints.. Health Maintenance RSV Vaccine(1 - Risk 60-74 years 1-dose series) Mammogram Screening Colorectal Cancer Screening Influenza Vaccine(1) Covid-19 Vaccine( season) HPI Milagro is a 69-year-old female with a past medical history of hyperlipidemia, knee pain, morbid obesity 3 months ago she had given labs and her LDL was 178 HDL was 57 good to bad ratios were 3.12. patients thyroid was mildly elevated last visit Knee arthritis: she has medial and patellar compartment arthritis, which hurts when she walks long distance. It starts getting aggravated, after 5/10 mins of walking. Walking up a hill is the worst pain she gets, sometimes coming down the hill puts a strain too. No problem-specific Assessment AND Plan notes found for this encounter. PAST MEDICAL HISTORY Diagnosis Date RA (rheumatoid arthritis) (HCC) PAST SURGICAL HISTORY Procedure Laterality Date SNGL 05/31/1987 FAMILY HISTORY Problem Relation Age of Onset Heart Mother in 2010 other (Other) Sister hip replacement Cancer Brother Breast Cancer Sister other (Other) Son back problems Social History Tobacco Use Smoking status: Former Smokeless tobacco: Never Substance Use Topics Alcohol use: No Drug use: No Past medical history, appointments, medications, allergies reviewed. Pertinent Lab/Diagnostic Studies are reviewed and discussed today Current Outpatient Medications: naproxen (NAPROSYN) 500 mg tablet Multivitamin capsule Review of Systems CONSTITUTIONAL: No fevers, chills night sweats, unintended weight loss CARDIOVASCULAR: No chest pain, dyspnea, palpitations, orthopnea, PND, ankle edema. PULM: No dyspnea, unexplained cough. GI: No dysphagia/odynophagia, problematic reflux, constipation, diarrhea, changes in stool habits, hematochezia, melena. : No new urinary complaints, including dysuria, gross hematuria or pyuria. NEURO: No new balance problems, peripheral weakness/paresthesias or numbness of concern. Physical Exam BP 122/80 Pulse 87 Resp 16 Ht 163 cm (5' 4.17) Wt 117.5 kg (259 lb) BMI 44.22 kg/m? General appearance: Well appearing, alert, in no acute distress, well nourished. Skin: Skin color, texture, turgor normal, no suspicious rashes or lesions Head: Normocephalic, no masses, lesions, tenderness or abnormalities Eyes: Anicteric sclera. Pupils are equally round and reactive to light. Extraocular movements are intact. Lungs: Lungs clear to auscultation. No wheezing, rhonchi, rales Heart: RRR without murmur, gallop, or rubs. Extremities: No deformities, edema, skin discoloration, clubbing or cyanosis. Good capillary refill. ASSESSMENT/PLAN: 1. Medicare annual wellness visit, subsequent - ICD9: V70.0, ICD10: Z00.00 (primary diagnosis) - Counseled on healthy diet and regular exercise 2. Arthritis of knee - ICD9: 716.96, ICD10: M17.10 May benefit from repeat xr and shot - XR KNEE GENERAL 4V AP BOTH/PA BOTH/LAT/MERC RIGHT (more content not included)... [facility] 04-16-2024 Note Patient Outreach (IN [facility]) MILAGRO COTTRELL ([id number]) 1955 F Date Time Provider Department 04/16/24 OLIVIER GOMES During your visit today, we recorded the following information about you: Allergies As of Date: 04/16/2024 Noted Allergy Reaction PENICILLINS 05/20/2018 2 - Rash 4 - Hives 9 - Itching SULFAMETHOXAZOLE 06/23/2022 9 - Itching TAPE (ADHESIVE TAPE (ROSINS)) 06/23/2022 2 - Rash Comments: paper tape Date Reviewed: 01/14/2024 Reviewed by: Yaneth Chau APRN.JAVA APPLICATION DEVELOPER - Fully Assessed Visit Diagnosis:Encounter for screening mammogram for breast cancer [Z12.31] Order(s):RAJENDRA SCREENING Farheen LOVE [[id number]] Order #: [id number] FUTURE Prescriptions as of 04/21/2024 - naproxen (NAPROSYN) 500 mg tablet Take 1 tablet by mouth two times a day as needed (for pain/inflammation). Take with food. - Multivitamin capsule Take 1 capsule by mouth once daily. Problem List As Of Date 04/16/2024 Noted Resolved Knee pain [M25.569] 12/13/2018 Encounter Status:Closed by Atooma RedCapKB on 04/21/24 [facility] 01-24-2024 Miscellaneous Notes Checked with lab client services to see if could run additional lab but sample have been discarded. Patient notified of providers message and verbalized understanding. She is also notified of additional labs are needed and that we were unable to run labs off previous sample. Patient verbalized understanding and will stop in to have them done. Labs are overall in acceptable range. Cholesterol a bit elevated. Recommend a plant based diet such as Mediterranean diet with plenty of vegetables, fruits,whole grains, fish, chicken, turkey or plant proteins and routine exercise such as walking. TSH is also up a bit. Will add T3-T4 and thyroid antibody labs. Add on labs or come in at her convenience. May need treatment of thyroid. Patient calling asking for her lab results. Patient said was done last week. Aware ANDROID SOFTWARE ENGINEER is out of office on Sunday. Please advise Latest Ref Rng 01/14/2024 WBC 3.70 - 11.00 k/uL 9.07 RBC 3.90 - 5.20 m/uL 4.85 Hemoglobin 11.5 - 15.5 g/dL 14.0 Hematocrit 36.0 - 46.0 % 45.1 MCV 80.0 - 100.0 fL 93.0 MCH 26.0 - 34.0 pg 28.9 MCHC 30.5 - 36.0 g/dL 31.0 RDW-CV 11.5 - 15.0 % 13.6 Platelet Count 150 - 400 k/uL 309 MPV 9.0 - 12.7 fL 12.1 Neut% % 56.1 Abs Neut (ANC) 1.45 - 7.50 k/uL 5.10 Lymph% % 33.0 Abs Lymph 1.00 - 4.00 k/uL 2.99 Loup% % 8.3 Abs Loup <0.87 k/uL 0.75 Eosin% % 1.8 Abs Eosin <0.46 k/uL 0.16 Baso% % 0.6 Abs Baso <0.11 k/uL 0.05 Immature Gran % % 0.2 IMMATURE GRANS (ABS) <0.10 k/uL <0.03 NRBC /100 WBC 0.0 Absolute nRBC <0.01 k/uL <0.01 DTYPE Auto Protein, Total 6.3 - 8.0 g/dL 7.2 Albumin 3.9 - 4.9 g/dL 4.2 Calcium 8.5 - 10.2 mg/dL 9.6 Bilirubin, Total 0.2 - 1.3 mg/dL 0.4 Alkaline Phosphatase 34 - 123 U/L 52 AST 13 - 35 U/L 24 ALT 7 - 38 U/L 17 Glucose 74 - 99 mg/dL 95 BUN 7 - 21 mg/dL 17 Creatinine 0.58 - 0.96 mg/dL 0.74 Sodium 136 - 144 mmol/L 140 Potassium 3.7 - 5.1 mmol/L 4.5 Chloride 97 - 105 mmol/L 103 CO2 22 - 30 mmol/L 25 Anion Gap 9 - 18 mmol/L 12 eGFR >=60 mL/min/1.73m 89 Cholesterol, Total <200 mg/dL 254 (H) Triglyceride <150 mg/dL 97 HDL Cholesterol >39 mg/dL 57 Non HDL Cholesterol <130 mg/dL 197 (H) Fasting Time hrs 12 VLDL Cholesterol <30 mg/dL 19 TC:HDL Ratio <5.10 4.46 LDL Cholesterol <100 mg/dL 178 (H) LDL:HDL Ratio <2.54 3.12 (H) Hemoglobin A1C 4.3 - 5.6 % 5.8 (H) Estimated Average Glucose mg/dL 120 TSH 0.270 - 4.200 mIU/L 4.390 (H) Legend: (H) High documented in this encounter [facility] 01-24-2024 Telephone encounter Note Checked with lab client services to see if could run additional lab but sample have been discarded. Patient notified of providers message and verbalized understanding. She is also notified of additional labs are needed and that we were unable to run labs off previous sample. Patient verbalized understanding and will stop in to have them done. [facility] 01-24-2024 Telephone encounter Note Labs are overall in acceptable range. Cholesterol a bit elevated. Recommend a plant based diet such as Mediterranean diet with plenty of vegetables, fruits,whole grains, fish, chicken, turkey or plant proteins and routine exercise such as walking. TSH is also up a bit. Will add T3-T4 and thyroid antibody labs. Add on labs or come in at her convenience. May need treatment of thyroid. [facility] 01-23-2024 Telephone encounter Note Patient calling asking for her lab results. Patient said was done last week. Aware ANDROID SOFTWARE ENGINEER is out of office on Sunday. Please advise Latest Ref Rng 01/14/2024 WBC 3.70 - 11.00 k/uL 9.07 RBC 3.90 - 5.20 m/uL 4.85 Hemoglobin 11.5 - 15.5 g/dL 14.0 Hematocrit 36.0 - 46.0 % 45.1 MCV 80.0 - 100.0 fL 93.0 MCH 26.0 - 34.0 pg 28.9 MCHC 30.5 - 36.0 g/dL 31.0 RDW-CV 11.5 - 15.0 % 13.6 Platelet Count 150 - 400 k/uL 309 MPV 9.0 - 12.7 fL 12.1 Neut% % 56.1 Abs Neut (ANC) 1.45 - 7.50 k/uL 5.10 Lymph% % 33.0 Abs Lymph 1.00 - 4.00 k/uL 2.99 Loup% % 8.3 Abs Loup <0.87 k/uL 0.75 Eosin% % 1.8 Abs Eosin <0.46 k/uL 0.16 Baso% % 0.6 Abs Baso <0.11 k/uL 0.05 Immature Gran % % 0.2 IMMATURE GRANS (ABS) <0.10 k/uL <0.03 NRBC /100 WBC 0.0 Absolute nRBC <0.01 k/uL <0.01 DTYPE Auto Protein, Total 6.3 - 8.0 g/dL 7.2 Albumin 3.9 - 4.9 g/dL 4.2 Calcium 8.5 - 10.2 mg/dL 9.6 Bilirubin, Total 0.2 - 1.3 mg/dL 0.4 Alkaline Phosphatase 34 - 123 U/L 52 AST 13 - 35 U/L 24 ALT 7 - 38 U/L 17 Glucose 74 - 99 mg/dL 95 BUN 7 - 21 mg/dL 17 Creatinine 0.58 - 0.96 mg/dL 0.74 Sodium 136 - 144 mmol/L 140 Potassium 3.7 - 5.1 mmol/L 4.5 Chloride 97 - 105 mmol/L 103 CO2 22 - 30 mmol/L 25 Anion Gap 9 - 18 mmol/L 12 eGFR >=60 mL/min/1.73m 89 Cholesterol, Total <200 mg/dL 254 (H) Triglyceride <150 mg/dL 97 HDL Cholesterol >39 mg/dL 57 Non HDL Cholesterol <130 mg/dL 197 (H) Fasting Time hrs 12 VLDL Cholesterol <30 mg/dL 19 TC:HDL Ratio <5.10 4.46 LDL Cholesterol <100 mg/dL 178 (H) LDL:HDL Ratio <2.54 3.12 (H) Hemoglobin A1C 4.3 - 5.6 % 5.8 (H) Estimated Average Glucose mg/dL 120 TSH 0.270 - 4.200 mIU/L 4.390 (H) Legend: (H) High [facility] 01-14-2024 History of Presen t illness Narrative SUBJECTIVE: RSV Vaccine(1 - 1-dose 60+ series) Never done Mammogram Screening due on 04/29/2022 Covid-19 Vaccine(2022-24 season) due on 05/11/2023 Advance Directive Discussion Never done Behavioral Health Screening Never done HPI Milagro Cottrell is a 68 year old female. PMH significant for ACTIVE PROBLEM LIST Knee Pain PCP: Olivier Gomes MD Presents for routine visit. She notes chronic right knee pain for which she takes naproxen. She notes she has been walking [id number] steps per day. Has been decreasing intake. Trying to lose weight. Has decreased weight by 10 pounds since last seen. HTN: Without report of headache, chest pain, palpitations, dyspnea, peripheral edema, orthopnea, fatigue, and PND. Last 14 Encounter BP Readings: Date: BP: 01/14/2024 134/84 06/25/2023 132/78[NICOLE BP[ 12/22/2022 128/70 06/23/2022 112/80 01/17/2022 116/78 01/10/2022 120/76 10/24/2021 138/70 04/23/2021 122/74 04/30/2019 126/78 12/18/2018 120/70 12/04/2018 122/68 05/20/2018 124/70 Review of Systems Constitutional: Negative. Musculoskeletal: Positive for arthralgias. Objective BP 134/84 Pulse 67 Resp 16 Wt 113.9 kg (251 lb) BMI 43.08 kg/m Physical Exam Vitals and nursing note reviewed. Constitutional: Appearance: Normal appearance. HENT: Head: Normocephalic and atraumatic. Eyes: Conjunctiva/sclera: Conjunctivae normal. Neck: Thyroid: No thyromegaly. Vascular: Normal carotid pulses. No JVD. Cardiovascular: Rate and Rhythm: Normal rate and regular rhythm. Pulses: Carotid pulses are 2+ on the right side and 2+ on the left side. Radial pulses are 2+ on the right side and 2+ on the left side. Heart sounds: Normal heart sounds. Pulmonary: Effort: Pulmonary effort is normal. Breath sounds: Normal breath sounds. Abdominal: General: Bowel sounds are normal. Palpations: Abdomen is soft. Musculoskeletal: Right lower leg: No edema. Left lower leg: No edema. Skin: General: Skin is warm and dry. Neurological: General: No focal deficit present. Mental Status: She is alert and oriented to person, place, and time. ALLERGIES Allergen Reactions Penicillins Rash, Hives, Itching Sulfamethoxazole Itching Tape [Adhesive Tape* Rash paper tape Medicaions Multivitamin capsule Take 1 capsule by mouth once daily. naproxen (NAPROSYN) 500 mg tablet Take 1 tablet by mouth two times a day as needed (for pain/inflammation). Take with food. PAST MEDICAL HISTORY Diagnosis Date RA (rheumatoid arthritis) ([facility]) Social History Tobacco Use Smoking status: Former Smokeless tobacco: Never Substance Use Topics Alcohol use: No Drug use: No Latest Ref Rng 06/24/2022 12/22/2022 06/26/2023 Protein, Total 6.3 - 8.0 g/dL 7.1 Albumin 3.9 - 4.9 g/dL 4.0 Calcium 8.5 - 10.2 mg/dL 9.6 9.0 Bilirubin, Total 0.2 - 1.3 mg/dL 0.5 Alkaline Phosphatase 34 - 123 U/L 54 AST 13 - 35 U/L 21 ALT 7 - 38 U/L 12 Glucose 74 - 99 mg/dL 83 85 BUN 7 - 21 mg/dL 23 (H) 27 (H) Creatinine 0.58 - 0.96 mg/dL 0.85 0.78 Sodium 136 - 144 mmol/L 140 142 Potassium 3.7 - 5.1 mmol/L 4.6 4.7 Chloride 97 - 105 mmol/L 104 106 (H) CO2 22 - 30 mmol/L 25 25 Anion Gap 9 - 18 mmol/L 11 11 eGFR >=60 mL/min/1.73m 76 84 WBC 3.70 - 11.00 k/uL 8.98 RBC 3.90 - 5.20 m/uL 4.69 Hemoglobin 11.5 - 15.5 g/dL 13.8 Hematocrit 36.0 - 46.0 % 43.2 MCV 80.0 - 100.0 fL 92.1 MCH 26.0 - 34.0 pg 29.4 MCHC 30.5 - 36.0 g/dL 31.9 RDW-CV 11.5 - 15.0 % 14.1 Platelet Count 150 - 400 k/uL 335 MPV 9.0 - 12.7 fL 11.4 Absolute nRBC <0.01 k/uL <0.01 Cholesterol, Total <200 mg/dL 264 (H) 255 (H) Triglyceride <150 mg/dL 108 87 HDL Cholesterol >39 mg/dL 50 49 Non HDL Cholesterol <130 mg/dL 214 (H) 206 (H) Fasting Time hrs 13 10 VLDL Cholesterol <30 mg/dL 22 17 TC:HDL Ratio <5.10 5.28 (H) 5.20 (H) LDL Cholesterol <100 mg/dL 192 (H) 189 (H) LDL:HDL Ratio <2.54 3.84 (H) 3.86 (H) HIV 12 Combo (Ag/Ab) Nonreactive Nonreactive HIV 1/2 Ab -- HIV Interpretation -- Hemoglobin A1C 4.3 - 5.6 % 5.6 Estimated Average Glucose mg/dL 114 TSH 0.270 - 4.200 mIU/L 4.040 ASSESSMENT/PLAN: 1. Mixed hyperlipidemia - ICD9: 272.2, ICD10: E78.2 (primary diagnosis) Recommend a plant based diet such as Mediterranean diet with plenty of vegetables, fruits,whole grains, fish, chicken, turkey or plant proteins and routine exercise such as walking - Discussed need for and benefit of weight loss. BMI 43.08 kg/(m^2) - LIPID PANEL BASIC 2. Knee pain, unspecified chronicity, unspecified laterality - ICD9: 719.46, ICD10: M25.569 - NAPROXEN 500 MG TABLET 3. Encounter for immunization - ICD9: V03.89, ICD10: Z23 - deferred - RSV PRINTED PHARMACY INSTRUCTIONS - [employer] COVID-19 VACCINE (2022- SEASON) AGE 12+ YR 4. Morbid obesity (HCC) - ICD9: 278.01, ICD10: E66.01 Discussed recommendations for obesity. She prefers to stick with diet and exercise for now. Endorse she may need to increase activity for continued weight loss. Consider weight lifting. Referral to dietitian or bariatric program if so desires. Weight watchers or other social supports may be helpful as well. - COMPREHENSIVE METABOLIC PANEL - COMPLETE BLOOD COUNT AND DIFFERENTIAL - HEMOGLOBIN A1C - THYROID STIMULATING HORMONE 5. Elevated glucose - ICD9: 790.29, ICD10: R73.09 - HEMOGLOBIN A1C 6. Elevated blood pressure reading R03.0 Endorse DASH diet. Endorse weight loss. Continue to monitor. Prefers to avoid medication at this time. Recheck at next visit. Treat if willing to do so. Labs today. 6 mo follow up MD Yaneth Haskins APRN.JAVA APPLICATION DEVELOPER Medical Decision Making: Problems: Moderate: 2+ stable chronic illnesses Data: Unique test(s) ordered: 3+ Risk: Moderate: Drug management Medical Decision Making Level: 4 - Moderate documented in this encounter [facility] 11-16-2023 Miscellaneous Notes Pt called in as Pt outreach called her. Pt was transferred to scheduling to set up her mammogram and Medicare Wellness exam. documented in this encounter [facility] 11-16-2023 History of Presen t illness Narrative POPULATION HEALTH NAVIGATION OUTREACH Action/ Last Wellness exam 05/20/2018 Mammogram ordered 05/16/2023 No active MyChart Reason for Outreach Care Gap/HCC or Scheduling Wellness Visits Care Gaps due: Medicare Annual Wellness Visit Breast Cancer Screening Patient Contacted: Unable or unnecessary to reach patient: Left message Navigation Signature: Anisha Pearson MA November 16, 2023 10:23 AM documented in this encounter [facility] 07-03-2023 Miscellaneous Notes Pt called and is notified of providers results and instructions. Pt voices understanding. She does not want to try a Statin at this time, she said she would work on her diet. She was advised to decrease red meat and pork, as well as cut out processed foods. She was told to eat more chicken, turkey, fish, fresh vegetables, and fresh fruit. Chrystal Marti RN Labs within acceptable ranges except cholesterol levels still high with LDL at 189. With your mothers heart history, I would recommend starting statin therapy along with healthy lifestyle choices like low fat diet, regular exercise, and weight loss. Would she be willing to consider statin therapy like Lipitor? Take care Miesha Fritz APRN.CNP documented in this encounter [facility] 12-22-2022 History of Presen t illness Narrative Reason for Visit Patient presents with: F/U 6 months: refills Milagro Cottrell is a 67 year old female who presents here today for Above Complaints.. Health Maintenance DTAP,TDAP,TD(1 - Tdap) MAMMOGRAM ADVANCE DIRECTIVE DISCUSSION DEPRESSION ASSESSMENT HPI Knee pain: has narrowing of the medial femoral joint compartment and mild narrowing of the patellofemoral joint compartment. Naproxen, is helping her, She is here for refills of naproxen. She is exercising at the community recently Does the treadmill, lifts light weights. Ldl is 192. We discussed statin with such high ldl. She does not want to be on medications for this. Patient is not eating a lot of red meat but eating a lot of turkey and ham. Doing low fat yogurt, eating cottage cheese, asked her to avoid butter and full fat dairy products. The 10-year ASCVD risk score (Piedad TEJADA, et al., 2019) is: 6.7% Values used to calculate the score: Age: 67 years Sex: Female Is Non- : No Diabetic: No Tobacco smoker: No Systolic Blood Pressure: 128 mmHg Is BP treated: No HDL Cholesterol: 50 mg/dL Total Cholesterol: 264 mg/dL Morbid obesity: asked her to shop at the produce isles and not on the shelves. Discussed plate method of eating No problem-specific Assessment & Plan notes found for this encounter. PAST MEDICAL HISTORY Diagnosis Date RA (rheumatoid arthritis) (HCC) PAST SURGICAL HISTORY Procedure Laterality Date SNGL 05/31/1987 FAMILY HISTORY Problem Relation Age of Onset Heart Mother in 2010 other (Other) Sister hip replacement Cancer Brother Breast Cancer Sister other (Other) Son back problems Social History Tobacco Use Smoking status: Former Smokeless tobacco: Never Substance Use Topics Alcohol use: No Drug use: No Past medical history, appointments, medications, allergies reviewed. Pertinent Lab/Diagnostic Studies are reviewed and discussed today Current Outpatient Medications: naproxen (NAPROSYN) 500 mg tablet Multivitamin capsule silver sulfADIAZINE (SILVADENE,THERMAZENE) 1 % cream Review of Systems CONSTITUTIONAL: No fevers, chills night sweats, unintended weight loss CARDIOVASCULAR: No chest pain, dyspnea, palpitations, orthopnea, PND, ankle edema. PULM: No dyspnea, unexplained cough. GI: No dysphagia/odynophagia, problematic reflux, constipation, diarrhea, changes in stool habits, hematochezia, melena. : No new urinary complaints, including dysuria, gross hematuria or pyuria. NEURO: No new balance problems, peripheral weakness/paresthesias or numbness of concern. Physical Exam BP 128/70 (BP Site: Left Arm, BP Position: Sitting, BP Cuff Size: Large Adult) Pulse 100 Temp 37 C (98.6 F) Resp 14 Ht 162.6 cm (5' 4) Wt 117 kg (258 lb) SpO2 96% BMI 44.29 kg/m General appearance: Well appearing, alert, in no acute distress, well nourished. Skin: Skin color, texture, turgor normal, no suspicious rashes or lesions Head: Normocephalic, no masses, lesions, tenderness or abnormalities Eyes: Anicteric sclera. Pupils are equally round and reactive to light. Extraocular movements are intact. Lungs: Lungs clear to auscultation. No wheezing, rhonchi, rales Heart: RRR without murmur, gallop, or rubs. Extremities: No deformities, edema, skin discoloration, clubbing or cyanosis. Good capillary refill. ASSESSMENT/PLAN: 1. Morbid obesity (HCC) - ICD9: 278.01, ICD10: E66.01 (primary diagnosis) Cont the exercise. Diet as discussed 2. Knee pain, unspecified chronicity, unspecified laterality - ICD9: 719.46, ICD10: M25.569 - NAPROXEN 500 MG TABLET 3. Encounter for monitoring chronic NSAID therapy - ICD9: V58.83, V58.64, ICD10: Z51.81, Z79.1 - BASIC METABOLIC PNL 4. Mixed hyperlipidemia - ICD9: 272.2, ICD10: E78.2 Refuses medication will work on lifestyl Olivier Gomes MD documented in this encounter [facility] 10-11-2022 Miscellaneous Notes Patient has been identified by name and date of : Yes, Provider Dr. Gomes Date 10/11/22 Time 8:47 am Patient phones for refill(s): Requested Prescriptions Pending Prescriptions Disp Refills naproxen (NAPROSYN) 500 mg tablet 60 tablet 3 Sig: Take 1 tablet by mouth twice daily as needed (for pain/inflammation). Take with food. Date of last office visit in primary care: 06/23/22 next apt 12/22/22 Last 2 Encounter Wt Readings: Date: Wt: 06/23/2022 105.7 kg (233 lb) 01/17/2022 116.1 kg (256 lb) Previous labs/tests for medication: Not applicable Thank you. Rosa Guy LPN documented in this encounter [facility] 07-05-2022 Miscellaneous Notes Patient notified and will watch diet and exercise until upcoming appointment. ----- Message from Olivier Gomes MD sent at 07/04/2022 2:25 PM EDT ----- Osteopenia of the hips- it means lower bone mass, the risk calculator shows that the over all risk is less. It is not high enough to benefit from medication management. No need for medication at this time. Regards, Olivier Gomes MD documented in this encounter [facility] 07-04-2022 Miscellaneous Notes Letter mailed to pt home of results. Lacy Richardson MA ----- Message from Olivier Gomes MD sent at 07/04/2022 7:11 AM EDT ----- Please let patient know that her lipids , roger the LDL is even higher than last time at 192. She is not on any medication and would benefit from statin or zetia. Please be considerate. Regards, Olivier Gomes MD documented in this encounter [facility] 06-26-2022 History of Presen t illness Narrative Radiology Service Progress Note PATIENT NAME: Milagro Cottrell DATE OF SERVICE: June 26, 2022 TIME: 11:36 AM PATIENT IDENTITY VERIFICATION COMPLETED USING TWO (2) IDENTIFIERS: Name and Date of confirmed by patient verbally. FALL SCREENING: Has the patient had 2 falls in the last year or 1 fall with injury or currently using an Ambulatory Assistive Device (Walker, Cane, Wheelchair, Crutches, etc.)? No PATIENT GENDER DATA: Female. status: : No status: NO. PATIENT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
[2025-04-08 22:56] LABS: Squamous Epithelial Cells - UA 0-5 SEEN /hpf (5-10)
--- NOTE | 2025-04-08 22:58 | CT_ITS ---
PROCEDURE: ABDOMEN/PELVIS W IV CONT ONLY 04/08/2025 REASON FOR EXAM: NAUSEA, VOMITING, LEUKOCYTOSIS TECHNIQUE: ABDOMEN/PELVIS W IV CONT ONLY Coronal and Sagittal reconstruction series were provided. CONTRAST: Isovue 370 VOLUME: 95 mL One or more dose reduction techniques were used (e.g., Automated exposure control, adjustment of the mA and/or kV according to patient size, use of iterative reconstruction technique. RADIATION DOSE SUMMARY: CTDlvol: 34 mGy DLP: 1414 mGycm COMPARISON: No FINDINGS: Under aerated lung bases. Upper limits of normal heart size. Cholelithiasis. Unremarkable liver, pancreas, spleen, adrenal glands. Large parapelvic simple left renal cyst. No hydronephrosis. Unremarkable bladder. Fibroid uterus. Normal ovaries. No retroperitoneal or pelvic adenopathy. Mild presacral edema, nonspecific. No free air. Small hiatal hernia. Nondistended stomach and proximal small bowel. Distended mid abdominal small bowel loops. Normal caliber distal small bowel loops, transition in the mid pelvis, series 2, image 103. Normal appendix. Decompressed large bowel with multiple diverticula. Lumbar spine degeneration. Small umbilical fat hernia. No acute abdominal wall findings. CT/Abdomen/Pelvis W IV Cont ONLY IMPRESSION: Distal small-bowel obstruction, transition in the mid pelvis, probably on the b asis of adhesions. Critical results discussed with Dr. Torre at 11:40 p.m. Reading Location: [place] [id number]
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
[2025-04-08 23:00] VITALS: BP 160/60; PULSE 88; RESP 16; TEMP 37.1; O2SAT 97
[2025-04-09] VITALS (8 sets, daily range): BP systolic 137–164; BP diastolic 61–83; PULSE 78–98; RESP 14–18; TEMP 36.6–37.3; O2SAT 93–98; BMI 37.0
[2025-04-09] MEDS: 0.9% Normal Saline (1000mL) 1,000 ML 999 ML IV (00:03)
--- OUTSIDE RECORDS SUMMARY | 2025-04-09 01:04 | XMS RPT_ITS | CCD ---
Author Organization [facility] Care Team Providers Care Senior Engineering Manager Name Role Phone Olivier Gomes MD Primary Care Provider Dr. Olivier Gomes Primary Care Provider Dr. Baudilio Prince Attending Provider [phone] Dr. Baudilio Prince Other Provider Olivier Gomes MD Primary Care Provider Olivier Gomes MD Primary Care Provider Olivier Gomes MD Primary Care Provider Denbow PA-C, May L Unavailable Older DEPARTMENT SECRETARY.LABOR LAW PROFESSOR, Miesha Unavailable Bogner PA-C, Maureen Unavailable Denbow [...] [PENICILLINS] Drug Allergy 8 Rash, Hives, Itching [facility] Work Phone: (1 source) Adhesive Tape Allergy to substance 2 Itching [facility] Work Phone: (11 sources) Latex; Translations: [LATEX] Allergy to substance 2 Rash [facility] Work Phone: (1 source) Sulfonamides (Antibiotic) Propensity to adverse reactions 2 Rash [facility] Work Phone: (20 sources) Penicillins Drug Allergy 8 Rash, Hives, Itching [facility] Work Phone: (20 sources) Adhesive Tape; Translations: [ADHESIVE TAPE (ROSINS)] Allergy to substance 2 Rash [facility] Work Phone: (20 sources) Sulfamethoxazole ; Translations: [SULFAMETHOXAZOL E] Drug Allergy 2 Itching [facility] Work Phone: (4 sources) Penicillins Drug Allergy 8 Rash, Hives, Itching [facility] Medications Current Medications Medication Drug Class(es) Dates Sig (Normalized) Sig (Original) Multivitamin capsule (20 sources) take 1 capsule by mouth once daily Multivitamin capsule Take 1 capsule by mouth once daily. Active take 1 capsule by mouth once helen ly Multivitamin capsule Take 1 capsule by mouth once daily. 0 Active Comment on above: Take 1 capsule by mo [facility] once daily. naproxen 500 mg oral tablet [...] level monitoring] Episodic Other aftercare (1 source) longterm current use of non-steroidal anti-inflammatory drug; Translations: [...] hemoglobin IA Ql (Stl) Positive Abnormal Negative [facility] Comment on above: Order Comment: Speci men Type: STOOL SPECIMENOrdering Facility: [facility] Address: [address] [place] [address] Performed By: #### 2 9771-3 ####[facility] LABCLIA [id number] [address] [place] [address] [place] Ferritin SerPl-mCncon 2024 Ferritin [Mass/Vol] 19.5 ng/mL Normal 14.7-205.1 [facility] Comment on above: Order Comment: Speci men Type: BLOOD SPECIMENOrdering Facility: [facility] Address: [address] [place] [address] Performed By: #### 5 0190-8, 2275-12, 2132-05 ####[facility] LABCLIA [id number] [place] [address] [place] Iron and Iron binding capaci ty panelon 02-09-2025 Iron [Mass/Vol] 30 ug/dL Low 41-186 [facility] Comment on above: Order Comment: Speci men Type: BLOOD SPECIMENOrdering Facility: [facility] Address: [address] [place] [address] Performed By: #### 5 0190-8, 2275-12, 2132-05 ####[facility] LABIA [id number] [place] [address] [place] Iron binding capacity [Mass/Vol] 436 ug/dL High 232-386 [facility] Comment on above: Order Comment: Speci men Type: BLOOD SPECIMENOrdering Facility: [facility] Address: [address] [place] [address] Performed By: #### 5 0190-8, 2275-12, 2132-05 ####[facility] LABIA [id number] [place] [address] [place] Iron/TIBC [Molar ratio] 6.9 % Low 15.0-57.0 [facility] Comment on above: Order Comment: Speci men Type: BLOOD SPECIMENOrdering Facility: [facility] Address: [address] [place] [address] Performed By: #### 5 0190-8, 2275-12, 2132-05 ####[facility] LABCLIA [id number] [place] [address] [place] Vit B12 [facility] 025 Cobalamin (Vitamin B12) [Mass/Vol] 555 pg/mL Normal 232-1245 [facility] Comment on above: Order Comment: Speci men Type: BLOOD SPECIMENOrdering Facility: [facility] Address: [address] [place] [address] Performed By: #### 5 0190-8, 2276-4, 2132-9 ####[facility] [id number] [address] OF [facility] [place] 02-05-2025 CNPN Telephone (INTMWS) -------- MILAGRO COTTRELL ([id number]) 1955 F Date Time Provider Department 02/05/25 [...] Abs Lymph 1.00 - 4.00 k/uL 2.41 [place]% % 9.9 Abs [place] <0.87 k/uL 0.91 (H) Eosin% % 1.6 [...] FECAL OCCULT BLOOD TEST [SQIFOBT] Order #: [id number]. #:[id number] IRON AND TIBC [SQIRON] Order #: [id number] FUTURE FERRITIN [SQFERR] Order #: [id number] FUTURE VITAMIN B12 [SQB12] Order #: [id number] FUTURE Prescriptions as of 02/06/2025 - naproxen (NAPROSYN) 500 mg tablet take 1 tablet by mouth twice a day if needed for pain with food - Multivitamin capsule Take 1 capsule by mouth once daily. Problem List As Of Date 02/05/2025 Noted Resolved Knee pain [M25.569] 12/13/2018 Encounter Status:Closed by CHRYSTAL MARTI on 02/06/[address] [facility] CBC W Auto Differential pane l (Bld)on 12-23-2024 Basophils (Bld) [#/Vol] 0.05 10*3/uL [facility] Basophils/100 WBC (Bld) 0.5 % [facility] Differential cell count method Nom (Bld) Auto [facility] Eosinophils (Bld) [#/Vol] 0.15 10*3/uL [facility] Eosinophils/100 WBC (Bld) 1.6 % [facility] Erythrocyte distribution width (RBC) [Ratio] 14.1 % 11.5 - 15.0 % [facility] Hematocrit (Bld) [Volume fraction] 37.3 % 36.0 - 46.0 % [facility] Hemoglobin (Bld) [Mass/Vol] 11.2 g/dL Low 11.5 - 15.5 g/dL [facility] Immature granulocytes (Bld) [#/Vol] 0.03 10*3/uL NINF [facility] Immature granulocytes/100 WBC (Bld) 0.3 % [facility] Interpretation and review of laboratory results Abnormal [facility] Lymphocytes (Bld) [#/Vol] 2.41 10*3/uL [facility] Lymphocytes/100 WBC (Bld) 26.3 % [facility] MCH (RBC) [Entitic mass] 26.2 pg 26.0 - 34.0 pg [facility] MCHC (RBC) [Mass/Vol] 30 g/dL Low 30.5 - 36.0 g/dL [facility] MCV (RBC) [Entitic vol] 87.4 fL 80.0 - 100.0 fL [facility] Monocytes (Bld) [#/Vol] 0.91 10*3/uL High [facility] Monocytes/100 WBC (Bld) 9.9 % [facility] Neutrophils (Bld) [#/Vol] 5.62 10*3/uL [facility] Neutrophils/100 WBC (Bld) 61.4 % [facility] Nucleated RBC (Bld) [#/Vol] NINF [facility] Nucleated RBC/100 WBC (Bld) [Ratio] 0 % /100 WBC [facility] Platelet mean volume (Bld) [Entitic vol] 11.4 fL 9.0 - 12.7 fL [facility] Platelets (Bld) [#/Vol] 392 10*3/uL [facility] RBC (Bld) [#/Vol] 4.27 10*6/uL 3.90 - 5.2 0 m/uL [facility] WBC (Bld) [#/Vol] 9.17 10*3/uL [facility] Basophils (Bld) [#/Vol] 0.05 10*3/uL Normal <0.11 [facility] Comment on above: Order Comment: Speci men Type: BLOOD SPECIMENOrdering Facility: [facility] Address: [address] [place] [address] Performed By: #### 5 7021-8 ####[facility] LABCLIA [id number] [address] [place] Basophils/100 WBC (Bld) 0.5 % Normal [facility] Comment on above: Order Comment: Speci men Type: BLOOD SPECIMENOrdering Facility: [facility] Address: [address] [place] [address] Performed By: #### 5 7021-8 ####[facility] LABCLIA [id number] [place] [address] [place] Differential cell count method Nom (Bld) Auto Normal [facility] Comment on above: Order Comment: Speci men Type: BLOOD SPECIMENOrdering Facility: [facility] Address: [address] [place] [address] Performed By: #### 5 7021-8 ####[facility] LABCLIA [id number] [place] [address] [place] Eosinophils (Bld) [#/Vol] 0.15 10*3/uL Normal <0.46 [facility] Comment on above: Order Comment: Speci men Type: BLOOD SPECIMENOrdering Facility: [facility] Address: [address] [place] [address] Performed By: #### 5 7021-8 ####[facility] LABCLIA [id number] [address] [place] Eosinophils/100 WBC (Bld) 1.6 % Normal [facility] Comment on above: Order Comment: Speci men Type: BLOOD SPECIMENOrdering Facility: [facility] Address: [address] [place] [address] Performed By: #### 5 7021-8 ####[facility] LABCLIA [id number] [place] [address] [place] Erythrocyte distribution width (RBC) [Ratio] 14.1 % Normal 11.5-15.0 [facility] Comment on above: Order Comment: Speci men Type: BLOOD SPECIMENOrdering Facility: [facility] Address: [address] [place] [address] Performed By: #### 5 7021-8 ####[facility] LABCLIA [id number] [place] [address] [place] Hematocrit (Bld) [Volume fraction] 37.3 % Normal 36.0-46.0 [facility] Comment on above: Order Comment: Speci men Type: BLOOD SPECIMENOrdering Facility: [facility] Address: [address] [place] [address] Performed By: #### 5 7021-8 ####[facility] LABIA [id number] [place] [address] [place] Hemoglobin (Bld) [Mass/Vol] 11.2 g/dL Low 11.5-15.5 [facility] Comment on above: Order Comment: Speci men Type: BLOOD SPECIMENOrdering Facility: [facility] Address: [address] [place] [address] Performed By: #### 5 7021-8 ####[facility] LABIA [id number] [place] [address] [place] Immature granulocytes (Bld) [#/Vol] 0.03 10*3/uL Normal <0.10 [facility] Comment on above: Order Comment: Speci men Type: BLOOD SPECIMENOrdering Facility: [facility] Address: [address] [place] [address] Performed By: #### 5 7021-8 ####[facility] LABIA [id number] [place] [address] [place] Immature granulocytes/100 WBC (Bld) 0.3 % Normal [facility] Comment on above: Order Comment: Speci men Type: BLOOD SPECIMENOrdering Facility: [facility] Address: [address] [place] [address] Performed By: #### 5 7021-8 ####[facility] LABIA [id number] [place] [address] [place] Lymphocytes (Bld) [#/Vol] 2.41 10*3/uL Normal 1.00-4.00 [facility] Comment on above: Order Comment: Speci men Type: BLOOD SPECIMENOrdering Facility: [facility] Address: [address] [place] [address] Performed By: #### 5 7021-8 ####[facility] LABIA [id number] [place] [address] [place] Lymphocytes/100 WBC (Bld) 26.3 % Normal [facility] Comment on above: Order Comment: Speci men Type: BLOOD SPECIMENOrdering Facility: [facility] Address: [address] [place] [address] Performed By: #### 5 7021-8 ####[facility] LABIA [id number] [place] [address] [place] MCH (RBC) [Entitic mass] 26.2 pg Normal 26.0-34.0 [facility] Comment on above: Order Comment: Speci men Type: BLOOD SPECIMENOrdering Facility: [facility] Address: [address] [place] [address] Performed By: #### 5 7021-8 ####[facility] LABIA [id number] [place] [address] [place] MCHC (RBC) [Mass/Vol] 30.0 g/dL Low 30.5-36.0 [facility] Comment on above: Order Comment: Speci men Type: BLOOD SPECIMENOrdering Facility: [facility] Address: [address] [place] [address] Performed By: #### 5 7021-8 ####[facility] LABIA [id number] [place] [address] [place] MCV (RBC) [Entitic vol] 87.4 fL Normal 80.0-100.0 [facility] Comment on above: Order Comment: Speci men Type: BLOOD SPECIMENOrdering Facility: [facility] Address: [address] [place] [address] Performed By: #### 5 7021-8 ####[facility] LABCLIA [id number] [address], [place] [address] [place] Monocytes (Bld) [#/Vol] 0.91 10*3/uL High <0.87 [facility] Comment on above: Order Comment: Speci men Type: BLOOD SPECIMENOrdering Facility: [facility] Address: [address] [place] [address] Performed By: #### 5 7021-8 ####[facility] LABCLIA [id number] [address], [place] [address] [place] Monocytes/100 WBC (Bld) 9.9 % Normal [facility] Comment on above: Order Comment: Speci men Type: BLOOD SPECIMENOrdering Facility: [facility] Address: [address] [place] [address] Performed By: #### 5 7021-8 ####[facility] LABCLIA [id number] [address], [place] [address] [place] Neutrophils (Bld) [#/Vol] 5.62 10*3/uL Normal 1.45-7.50 [facility] Comment on above: Order Comment: Speci men Type: BLOOD SPECIMENOrdering Facility: [facility] Address: [address] [place] [address] Performed By: #### 5 7021-8 ####[facility] LABCLIA [id number] [address], [facility] [place] Neutrophils/100 WBC (Bld) 61.4 % Normal [facility] Comment on above: Order Comment: Speci men Type: BLOOD SPECIMENOrdering Facility: [facility] Address: [address] [place] [address] Performed By: #### 5 7021-8 ####[facility] LABCLIA [id number] [address] [place] [address] [place] Nucleated RBC (Bld) [#/Vol] 10*3/uL Normal <0.01 [facility] Comment on above: Order Comment: Speci men Type: BLOOD SPECIMENOrdering Facility: [facility] Address: [address] [place] [address] Performed By: #### 5 7021-8 ####[facility] LABCLIA [id number] [place] [address] [place] Nucleated RBC/100 WBC (Bld) [Ratio] 0.0 /[address] [facility] Comment on above: Order Comment: Speci men Type: BLOOD SPECIMENOrdering Facility: [facility] Address: [address] [place] [address] Performed By: #### 5 7021-8 ####[facility] LABCLIA [id number] [place] [address] [place] Platelet mean volume (Bld) [Entitic vol] 11.4 fL Normal 9.0-12.7 [facility] Comment on above: Order Comment: Speci men Type: BLOOD SPECIMENOrdering Facility: [facility] Address: [address] [place] [address] Performed By: #### 5 7021-8 ####[facility] LABIA [id number] [place] [address] [place] Platelets (Bld) [#/Vol] 392 10*3/uL Normal 150-400 [facility] Comment on above: Order Comment: Speci men Type: BLOOD SPECIMENOrdering Facility: [facility] Address: [address] [place] [address] Performed By: #### 5 7021-8 ####[facility] LABCLIA [id number] [place] [address] [place] RBC (Bld) [#/Vol] 4.27 10*6/uL Normal 3.90-5.20 [facility] Comment on above: Order Comment: Speci men Type: BLOOD SPECIMENOrdering Facility: [facility] Address: [address] [place] [address] Performed By: #### 5 7021-8 ####[facility] [id number] [place] [address] [place] WBC (Bld) [#/Vol] 9.17 10*3/uL Normal 3.70-11.00 [facility] Comment on above: Order Comment: Speci men Type: BLOOD SPECIMENOrdering Facility: [facility] Address: [address] [place] [address] Performed By: #### 5 7021-8 ####[facility] [id number] [place] [id number] [place] CNOVon 12-23-2024 CNOV Office Visit (INTMWS ) -------- MILAGRO COTTRELL ([id number]) 1955 F Date Time Provider Department 12/23/24 [...] thyroid, no (more content not included)... Normal [facility] Comprehensive metabolic 2000 panelon 12-23-2024 Albumin [Mass/Vol] 4.1 g/dL Normal 3.9-4.9 [facility] Comment on above: Order Comment: Deisi childers Type: BLOOD SPECIMENOrdering Facility: [facility] Address: [address] [place] [address] Performed By: #### 2 4103-8, 5932-9 ####[facility] LABCLIA [id number] [place] [address] [place] ALP [Catalytic activity/Vol] 66 U/L Normal 34-123 [facility] Comment on above: Order Comment: Speci men Type: BLOOD SPECIMENOrdering Facility: [facility] Address: [address] [place] [id number] Performed By: #### 2 4323-04, 2132-05 ####[facility] LABCLIA [id number] [address] [place] [address] [place] ALT [Catalytic activity/Vol] 14 U/L Normal 7-38 [facility] Comment on above: Order Comment: Speci men Type: BLOOD SPECIMENOrdering Facility: [facility] Address: [address] [place], [place] [address] Performed By: #### 2 4323-04, 2132-05 ####[facility] LABCLIA [id number] [address], [facility] [place] Anion gap [Moles/Vol] 8 mmol/L Normal 8-15 [facility] Comment on above: Order Comment: Speci men Type: BLOOD SPECIMENOrdering Facility: [facility] Address: [address] [place] [id number] Performed By: #### 2 4323-04, 2132-05 ####[facility] LABIA [id number] [place] [address] [place] AST [Catalytic activity/Vol] 21 U/L Normal 13-35 [facility] Comment on above: Order Comment: Speci men Type: BLOOD SPECIMENOrdering Facility: [facility] Address: [address] [place], [place] [address] Performed By: #### 2 4323-04, 2132-05 ####[facility] LABIA [id number] [place] [address] [place] Bilirubin [Mass/Vol] 0.2 mg/dL Normal 0.2-1.3 [facility] Comment on above: Order Comment: Speci men Type: BLOOD SPECIMENOrdering Facility: [facility] Address: [address] [place], [place] [address] Performed By: #### 2 4323-04, 2132-05 ####[facility] LABCLIA [id number] [facility] [address] [address] [place] Calcium [Mass/Vol] 9.1 mg/dL Normal 8.5-10.2 [facility] Comment on above: Order Comment: Speci men Type: BLOOD SPECIMENOrdering Facility: [facility] Address: [address] [place] [address] Performed By: #### 2 4323-04, 2132-05 ####[facility] LABCLIA [id number] [facility] [address] [place] [address] [place] Chloride [Moles/Vol] 104 mmol/L Normal 98-107 [facility] Comment on above: Order Comment: Speci men Type: BLOOD SPECIMENOrdering Facility: [facility] Address: [address] [place] [address] Performed By: #### 2 4323-04, 2132-05 ####[facility] LABCLIA [id number] [facility] [address] [place] [address] [place] CO2 [Moles/Vol] 27 mmol/L Normal 22-30 [facility] Comment on above: Order Comment: Speci men Type: BLOOD SPECIMENOrdering Facility: [facility] Address: [address] [place], [place] [address] Performed By: #### 2 4323-04, 2132-05 ####[facility] LABCLIA [id number] [facility] [address] [place] [address] [place] Creatinine [Mass/Vol] 0.85 mg/dL Normal 0.58-0.96 [facility] Comment on above: Order Comment: Speci men Type: BLOOD SPECIMENOrdering Facility: [facility] Address: [address] [place], [place] [address] Performed By: #### 2 4323-04, 2132-05 ####[facility] LABCLIA [id number] [facility] [address] [place] [address] [place] Creatinine and Glomerular filtration rate.predicted panel (S/P/Bld) 75 mL/min/1.73m??? Normal >=60 [facility] Comment on above: Order Comment: Deisi childers Type: BLOOD SPECIMENOrdering Facility: [facility] Address: [address] [place] [address] Result Comment: Lana mated Glomerular Filtration Rate [...] GFR. Performed By: #### 2 432-8, 2132-05 ####[facility] LABCLIA [id number] [place] [address] [place] Glucose [Mass/Vol] 103 mg/dL High 74-99 [facility] Comment on above: Order Comment: Deisi childers Type: BLOOD SPECIMENOrdering Facility: [facility] Address: [address] [place] [address] Result Comment: The [place] [employer] Association (ADA) provides guidance for cutoff [...] Standards of Medical Care in Diabetes 2016, [place] [employer]. Diabetes Care. 2016.39(Suppl 1). Performed By: #### 2 4323-8, 2132-05 ####[facility] LABCLIA [id number] [address] [address] [place] Potassium [Moles/Vol] 5.0 mmol/L Normal 3.7-5.1 [facility] Comment on above: Order Comment: Speci men Type: BLOOD SPECIMENOrdering Facility: [facility] Address: [address] [place] [address] Performed By: #### 2 432-8, 2132-05 ####[facility] LABCLIA [id number] [address] [address] [place] Protein [Mass/Vol] 6.9 g/dL Normal 6.3-8.0 [facility] Comment on above: Order Comment: Speci men Type: BLOOD SPECIMENOrdering Facility: [facility] Address: [address] [place] [address] Performed By: #### 2 4328, 2132-05 ####[facility] LABCLIA [id number] [address] [address] [place] Sodium [Moles/Vol] 139 mmol/L Normal 136-144 [facility] Comment on above: Order Comment: Speci men Type: BLOOD SPECIMENOrdering Facility: [facility] Address: [address] [place] [address] Performed By: #### 2 8, 2132-05 ####[facility] LABCLIA [id number] [address] [address] [place] Urea nitrogen [Mass/Vol] 25 mg/dL High 7-21 [facility] Comment on above: Order Comment: Speci men Type: BLOOD SPECIMENOrdering Facility: [facility] Address: [address] [place], [place] [address] Performed By: #### 2 4323-8, 2132-05 ####[facility] LABCLIA [id number] [address] [address] [place] HbA1c (Bld)on 12-23-2024 Average glucose Estimated from glycated hemoglobin (Bld) [Mass/Vol] 111 mg/dL Normal [facility] Comment on above: Order Comment: Speci men Type: BLOOD SPECIMENOrdering Facility: [facility] Address: [address] [place] [address] Result Comment: eAG: (Estimated average glucose) is a calculated value from HgbA1c and is inbound customer service representative of the average blood glucose level in the last 2-3 month period. Performed By: #### 5 5454-3 ####[facility] LABCLIA [id number] [place] [address] [place] HbA1c (Bld) [Mass fraction] 5.5 % Normal 4.3-5.6 [facility] Comment on above: Order Comment: Deisi childers Type: BLOOD SPECIMENOrdering Facility: [facility] Address: [address] [place] [address] Result Comment: Amer ican Diabetes Association guidelines indicate that patients with HgbA1c in the range 5.7-6.4% are at increased risk for development of diabetes, and intervention by lifestyle modification may be beneficial. HgbA1c greater or equal to 6.5% is considered diagnostic of diabetes. Performed By: #### 5 5454-3 ####[facility] LABIA [id number] [place] [address] [place] Vit B12 [facility] 15-2 025 Cobalamin (Vitamin B12) [Mass/Vol] 491 pg/mL Normal 232-1245 [facility] Comment on above: Order Comment: Deisi childers Type: BLOOD SPECIMENOrdering Facility: [facility] Address: [address] [place] [address] Performed By: #### 2 4323-8, 2132-9 ####[facility] LABIA [id number] [place] [id number] [place] CNOVon 11-13-2024 CNOV Office Visit (PODIWS ) -------- MILAGRO COTTRELL ([id number]) 1955 F Date Time Provider Department 11/13/24 [...] (H) 4.3 - 5.6 % Final Comment: [place] Diabetes Association guidelines indicate that patients with HgbA1c in the range 5.7-6.4% are at increased risk for development of diabetes, and intervention by lifestyle modification may be beneficial. HgbA1c greater or equal to 6.5% is considered diagnostic of diabetes. PCP: Olivier Gomes MD PAST MEDICAL HISTORY Diagnosis Date RA (rheumatoid arthritis) ([facility]) Current Outpatient Medications Medication Sig naproxen (NAPROSYN) [...] Emily Ribera DPM Referring Provider: EMILY RIBERA [[id number]] Allergies As of Date: 11/13/2024 Noted Allergy [...] Status:Closed by EMILY RIBERA DPM on 11/13/[address] [facility] 10-25-2024 IMTIAZN Telephone (PODIWS) -------- MILAGRO COTTRELL ([id number]) 1955 F Date Time Provider Department 10/25/24 [...] Encounter Status:Closed by LUMA HOOKS on 10/27/[address] [facility] CNOVon 10-23-2024 CNOV Office Visit (PODIWS ) -------- MILAGRO COTTRELL ([id number]) 1955 F Date Time Provider Department 10/23/24 [...] MEDICAL HISTORY Diagnosis Date RA (rheumatoid arthritis) ([facility]) Current Outpatient Medications Medication Sig naproxen (NAPROSYN) [...] (S91.209A) Traumatic (more content not included)... Normal [facility] XR TOE 3V AP/LAT/OBL RTon XR TOE [...] tarsal bones.. IMPRESSION: 1. Osteopenia 2 Osteoarthritis Criminology Teacher: PSCB Transcribe Date/Time: Oct 24 2024 3:36P Dictated by : MICKEY GOLDMAN MD This examination was interpreted and the report reviewed and electronically signed by: MCIKEY GOLDMAN MD on Oct 24 2024 3:41PM EST [id number] Normal [facility] CNOVon 09-22-2024 CNOV Office Visit (GRISELWS ) -------- MILAGRO COTTRELL ([id number]) 1955 F Date Time Provider Department 09/22/24 [...] PA-C Department of Orthopaedics Orthopaedics [address] [facility] [address] Dept: [phone] Dept September 22, 2024 Consultation requested by [...] knee joint Informed Consent Consent Obtained: Verbal Paradis Protocol A moment to CARE was completed. SIGN IN Sign in communication not applicable due to emergent procedure. Personnel directly involved with the procedure wore the appropriate PPE. Special Equipment: N/A Patient/Surrogate Stated/Verified: Patient name, Date of , Relevant allergies and Intended procedure TIME OUT Relevant labs, photos, and/or imaging studies have been reviewe (more content not included)... Normal [facility] Large Joint Arthro/Inj: R kn ee jointon 09-22-[address] PA -C 09/22/2024 1:29 PM Large Joint Arthro/Inj: R knee joint Informed Consent Consent Obtained: Verbal Paradis Protocol A moment to CARE was completed. [...] Plan of Care Visit completed when applicable [facility] 07-03-2024 [facility] Telephone (INTMWS) -------- MILAGRO COTTRELL ([id number]) 1955 F Date Time Provider Department 07/03/24 OLIVIER GOMES INTYuriWS During your visit today, we recorded the following information about you: Katya Mancia LPN 07/03/2024 2:30 PM Signed ----- Message [...] Status:Closed by KATYA MANCIA on 07/03/24 Normal [facility] Telephone (INTMWS) -------- MILAGRO COTTRELL ([id number]) 1955 F Date Time Provider Department 07/03/24 [...] Status:Closed by KATYA MANCIA on 07/03/[address] [facility] 25-hydroxyvitamin D3 [Mass/Vol] 35.0 ng/mL Normal 31.0-80.0 [facility] Comment on above: Order Comment: Speci men Type: BLOOD SPECIMENOrdering Facility: [facility] Address: [facility] [place] [address] Result Comment: Clas sification of 25 [place] Vitamin D status: Deficiency/Insufficiency: < or = 30 ng/ml. Sufficiency/Optimal Levels: 31-80 ng/mL Toxicity: > 100 ng/mL. Test performed by chemiluminescent immunoassay. Performed By: #### 1 989-3 ####[facility] LABCLIA [id number] TEO [facility] [id number] [place] [address] [place] CNOVon 06-24-2024 CNOV Office Visit (INTMWS ) -------- MILAGRO COTTRELL ([id number]) 1955 F Date Time Provider Department 06/24/24 [...] ASSESSMENT/PLAN: 1. (more content not included)... Normal [facility] TSH SerPl-aCncon 06-24-2024 TSH Qn 4.310 m[IU]/L High 0.270-4.200 [facility] Comment on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 05-05-2024 Screening for malignant neoplasm of colon [facility] Start: 04-23-2024 DIABETES SCREEN DIABETES SCREEN [facility] Start: 01-24-2024 End: 04-24-2024 THYROID PEROXIDASE ANTIBODY [facility] Comment on above: Expected: 01/24/2024, Expires: Start: 01-24-2024 End: 04-24-2024 Thyroxine (T4) free [Mass/volume] in Serum or Plasma [facility] [place] Work Phone: Comment on above: Expected: 01/24/2024, Expires: Start: 01-24-2024 End: 04-24-2024 Triiodothyronine (T3) Free [Mass/volume] in Serum or Plasma [facility] Comment on above: Expected: 01/24/2024, Expires: 4 Start: 01-21-2024 End: 01-21-2024 Patient encounter procedure 01/21/2024 11:10 AM EDT Appointment Mammogram [address] [place] [address] Encounter for screening mammogram for breast cancer [Z12.31] Mammogram Comment on above: Encounter for screening mammogram for br east cancer [Z12.31] Start: 01-14-2024 End: 04-14-2024 Hemoglobin A1c in Blood [facility] Comment on above: Expected: 01/14/2024, Expires: 4 Start: 09-10-2023 Advance Directive Discussion Advance Directive Discussion [facility] Start: 09-10-2023 Depression Assessment Depression Assessment [facility] Start: 05-11-2023 Covid-19 Vaccine () Covid-19 Vaccine () [facility] Start: 05-11-2023 Influenza vaccination INFLUENZA (#1) [facility] Start: 03-09-2023 Influenza vaccination INFLUENZA (#1) [facility] Comment on above: Postponed from 05/11/2022 (Declined at t his time) Start: 12-22-2022 End: 02-21-2023 Basic metabolic 2000 panel - Serum or Plasma [facility] Work Phone: Comment on above: Expected: 12/22/2022, Expires: 3 Start: 11-07-2022 COVID-19 VACCINE (6 - Moderna series) COVID-19 VACCINE (6 - Moderna series) [facility] Start: 09-10-2022 ADVANCE DIRECTIVE DISCUSSION ADVANCE DIRECTIVE DISCUSSION [facility] Start: 09-10-2022 DEPRESSION ASSESSMENT DEPRESSION ASSESSMENT [facility] Start: 06-23-2022 End: 08-23-2022 Hemoglobin A1c in Blood HGB A1C Lab Routine Elevated glucose Expected: 06/23/2022, Expires: 08/23/2022 [facility] Work Phone: Comment on above: Expected: 06/23/2022, Expires: 2 Start: 06-23-2022 End: 08-23-2022 HIV 1+2 Ab [Presence] in Serum or Plasma by Immunoassay HIV 1 2 COMBO(AG/AB),WITH REFLEX TO DIFFERENTIATION Lab Routine Screening for HIV (human immunodeficiency virus) Expected: 06/23/2022, Expires: 08/23/2022 [facility] Work Phone: Comment on above: Expected: 06/23/2022, Expires: 2 Start: 06-23-2022 End: 08-23-2022 Lipid 1996 panel - Serum or Plasma LIPID PANEL BASIC Lab Routine Mixed hyperlipidemia Expected: 06/23/2022, Expires: 08/23/2022 [facility] Work Phone: Comment on above: Expected: 06/23/2022, Expires: 2 Start: 05-11-2022 Influenza vaccination INFLUENZA (#1) [facility] Start: 04-29-2022 Mammography [facility] Start: 04-29-2022 Screening for malignant neoplasm of breast Mammogram Screening [facility] Start: 04-23-2022 SHINGRIX VACCINE (1 of 2) SHINGRIX VACCINE (1 of 2) [facility] Comment on above: Postponed from 2007 (Declined at t his time) Start: 04-23-2022 Urine microalbumin profile DTAP,TDAP,TD (1 - Tdap) [facility] Comment on above: Postponed from 1976 (Declined at t his time) Start: 2022 ADVANCE DIRECTIVE DISCUSSION ADVANCE DIRECTIVE DISCUSSION [facility] Start: 2022 BONE DENSITY BONE DENSITY [facility] Start: 2022 PNEUMOCOCCAL: 65+ (1 - PCV) PNEUMOCOCCAL: 65+ (1 - PCV) [facility] Start: 02-05-2022 COVID-19 VACCINE (5 - Booster for Moderna series) COVID-19 VACCINE (5 - Booster for Moderna series) [facility] Start: 09-10-2021 DEPRESSION ASSESSMENT DEPRESSION ASSESSMENT [facility] Start: 07-04-2021 HPV TESTING HPV TESTING [facility] Start: 07-04-2021 PAP TESTING PAP TESTING [facility] Start: 05-02-2020 FECAL OCCULT BLOOD FECAL OCCULT BLOOD [facility] Start: 05-02-2020 Screening for malignant neoplasm of colon Fecal Occult Blood [facility] Start: 12-05-2019 Adult depression screening assessment DEPRESSION SCREENING [facility] Start: 2017 RSV Vaccine (1 - 1-dose 60+ series) RSV Vaccine (1 - 1-dose 60+ series) [facility] Start: 2017 RSV Vaccine (1 - Risk 60-74 years 1-dose series) RSV Vaccine (1 - Risk 60-74 years 1-dose series) [facility] Start: 2007 SHINGRIX VACCINE (1 of 2) SHINGRIX VACCINE (1 of 2) [facility] Start: 2002 Colonoscopy COLONOSCOPY [facility] Start: [address] COLONOGRAPHY [facility] Start: 2002 Screening for malignant neoplasm of colon [facility] Start: 2002 SIGMOIDOSCOPY SIGMOIDOSCOPY [facility] Start: 1976 Urine microalbumin profile [facility] Start: 1975 HIV SCREENING HIV SCREENING [facility] End: 05-16-2025 DBT Breast - bilateral screening RAJENDRA SCREENING W IVAN Radiology Routine Encounter for screening mammogram for breast cancer 1 Occurrences starting 04/16/2024 until 05/16/2025 [facility] Work Phone: Comment on above: 1 Occurrences starting 04/16/2024 until 05/16/2025 End: 07-23-2023 Dxa bone density study 1/> sites axial skel DXA-AXIAL SKELETON Radiology Routine Age related osteoporosis, unspecified pathological fracture presence 1 Occurrences starting 06/23/2022 until 07/23/2023 [facility] Work Phone: Comment on above: 1 Occurrences starting 06/23/2022 until 07/23/2023 Hemoglobin.gastrodouglas elder al.lower [Presence] in Stool by Immunoassay IMMUNOCHEMICAL FECAL OCCULT BLOOD TEST Lab Routine Anemia, unspecified type Ordered: 02/06/2025 [facility] Work Phone: Comment on above: Ordered: 02/06/2025 End: 06-14-2024 RAJENDRA SCREENING RAJENDRA SCREENING Radiology Routine Encounter for screening mammogram for breast cancer 1 Occurrences starting 05/16/2023 until 06/14/2024 [facility] Work Phone: Comment on above: 1 Occurrences starting 05/16/2023 until 06/14/2024 PFIZER-BIONTECH COVI D-19 VACCINE ( SEASON) AGE 12+ YR PFIZER-BIONTECH COVID-19 VACCINE ( SEASON) AGE 12+ YR Immunization/Injection Routine Encounter for immunization 1 Occurrences starting 01/14/2024 [facility] Work Phone: Comment on above: 1 Occurrences starting 01/14/2024 End: 07-14-2023 Screening mammography bi 2-view breast inc cad RAJENDRA SCREENING Radiology Routine Encounter for screening mammogram for breast cancer 1 Occurrences starting 06/14/2022 until 07/14/2023 [facility] Work Phone: Comment on above: 1 Occurrences starting 06/14/2022 until 07/14/2023 End: 07-24-2025 XR Knee - right 4 Views XR KNEE GENERAL 4V AP BOTH/PA BOTH/LAT/MERC RIGHT Radiology Routine Arthritis of knee 1 Occurrences starting 06/24/2024 until 07/24/2025 [facility] Work Phone: Comment on above: 1 Occurrences starting 06/24/2024 until 07/24/2025 XR Knee - right 4 Views XR KNEE GENERAL 4V AP BOTH/PA BOTH/LAT/MERC RIGHT Radiology Routine Arthritis of knee 06/24/2024 12:45 PM EDT [facility] End: 11-22-2025 XR Toes - right 3 Views XR TOE AP/LAT/OBL RIGHT Radiology Routine Traumatic avulsion of nail plate of toe, initial encounter 1 Occurrences starting 10/23/2024 until 11/22/2025 [facility] Work Phone: Comment on above: 1 Occurrences starting 10/23/2024 until 11/22/2025 XR Toes - right 3 Views XR TOE A P/LAT/OBL RIGHT Radiology Routine Traumatic avulsion of nail plate of toe, initial encounter 10/23/2024 11:15 AM EST [facility] Immunizations Immunization Date Immunization Notes Care Provider [facility] 06-15-2023 influenza virus vaccine, unspecified formulation Olivier Gomes MD Work Phone: [facility] 02-13-2022 zoster vaccine recombinant Olivier Gomes MD Work Phone: [facility] Work Phone: 12-11-2021 pneumococcal (PCV20) vaccine, 20 valent (PREVNAR 20) Olivier Gomes MD Work Phone: [facility] Work Phone: 12-11-2021 zoster vaccine recombinant Olivier Gomes MD Work Phone: [facility] Work Phone: 08-10-2021 influenza, injectabl e, quadrivalent, preservative free Olivier Gomes MD Work Phone: [facility] Work Phone: Payers Date Payer Category Payer Medicare (Managed Care) [facility] DUAL COMPLETE HMO POS SNP [id number] 2024 Unknown [id number] 2022 Medicare [id number] 2017 Medicaid [facility] MEDICAID [facility] COMMUNITY PLAN MEDICAID [id number] 2017-Present [phone] [address] [place] [address] Medicaid [id number] 2017 Medicaid [id number] Self-pay SEL[employer]Y INSURANCE [id number] Unknown SELF PAY INSURANCE [id number] Unknown SELF PAY INSURANCE [id number] Unknown SELF PAY INSURANCE [id number] Social History Date Type Detail Facility Start: 05-20-2018 End: 06-23-2022 Tobacco smoking status NHIS Ex-smoker [facility] Work Phone: Start: 05-20-2018 End: 10-23-2024 Tobacco use and exposure Smokeless tobacco non-user [facility] Work Phone: Start: 01-10-2022 End: 11-13-2024 Alcohol intake Current non-drinker of alcohol (finding) [facility] Start: 1955 Sex Assigned At Not on file C [facility] Start: 12-30-2021 End: 06-23-2022 Exposure to SARS-CoV-2 (event) Not sure [facility] Start: 01-26-2022 [facility] ever smoked [facility] Work Phone: Start: 1955 Sex Assigned At Female [facility] Work Phone: History of tobacco use Current smoker [facility] Work Phone: Start: 12-22-2022 End: 06-25-2023 History of Social function [facility] Work Phone: Start: 12-22-2022 End: 06-25-2023 Tobacco use panel [facility] Work Phone: Adult Depression Screening Assessment 0 [facility] Work Phone: Start: 10-23-2024 Tobacco [facility] Never [facility] tobacco [facility] Clinical Notes 01-10-2022 to 02-06-2025 Telephone Encounter - Chrystal Marti RN - 02/06/2025 2:35 PM EDTTelephone Encounter - Chrystal Marti RN - 02/06/2025 2:35 PM EDTTelephone Encounter - Olivier Gomes MD - 02/06/2025 9:37 AM EDT Note Date & Type Note Facility 02-06-2025 Telephone encounter Note Pt called and is notified of providers results and instructions. Pt voices understanding. Chrystal Babulski, RN [facility] 02-06-2025 Miscellaneous Notes Pt called and [...] Abs Lymph 1.00 - 4.00 k/uL 2.41 [place]% % 9.9 Abs [place] <0.87 k/uL 0.91 (H) Eosin% % 1.6 [...] Low (H) High documented in this encounter [facility] 02-06-2025 Telephone encounter Note She has mild anemia at 11.2, noted in her chart is the fact that she is taking NSAIDS for knee pain She may be losing blood from gi tract. I would like to order more blood work for her to note the cause of the anemia. Regards, Olivier Gomes MD [facility] 02-05-2025 Telephone encounter Note Patient calling [...] Abs Lymph 1.00 - 4.00 k/uL 2.41 [place]% % 9.9 Abs [place] <0.87 k/uL 0.91 (H) Eosin% % 1.6 [...] pg/mL 491 Legend: (L) Low (H) High [facility] 12-23-2024 Instructions Olivier Gomes MD - [...] a living will and healthcare power of personal injury attorney. This document allows you to designate [...] the lab downstairs. documented in this encounter [facility] 12-23-2024 Note HNO ID: [id number] Author: OLIVIER GOMES MD Service: ? Author [...] x3, cranial n (more content not included)... [facility] 12-23-2024 History of Presen t illness Narrative [...] the visit was discussed with the patient/authorized inbound customer service representative; all questions welcomed and answered. Patient/authorized inbound customer service representative agreed to proceed Olivier Gomes MD documented in this encounter [facility] 11-13-2024 Note HNO ID: [id number] Author: EMILY RIBERA, ? Service: ? Author [...] (H) 4.3 - 5.6 % Final Comment: [place] [employer] guidelines indicate that patients with HgbA1c in the range 5.7-6.4% are at increased risk for development of diabetes, and intervention by lifestyle modification may be beneficial. HgbA1c greater or equal to 6.5% is considered diagnostic of diabetes. PCP: Olivier Gomes MD PAST MEDICAL HISTORY Diagnosis Date RA (rheumatoid arthritis) ([facility]) Current Outpatient Medications Medication Sig naproxen (NAPROSYN) [...] permanent nail procedure Follow-up araceli Ribera DPM [facility] 11-13-2024 History of Presen t illness Narrative [...] (H) 4.3 - 5.6 % Final Comment: [place] [employer] guidelines indicate that patients with HgbA1c in the range 5.7-6.4% are at increased risk for development of diabetes, and intervention by lifestyle modification may be beneficial. HgbA1c greater or equal to 6.5% is considered diagnostic of diabetes. PCP: Olivier Gomes MD PAST MEDICAL HISTORY Diagnosis Date RA (rheumatoid arthritis) ([facility]) Current Outpatient Medications Medication Sig naproxen (NAPROSYN) [...] Luma Hooks LPN documented in this encounter [facility] 11-13-2024 Instructions Emily Ribera - 11/13/2024 11:19 AM EST Your wound is now healed You no longer require a bandage If you have any issues, please contact our office documented in this encounter [facility] 11-13-2024 Note HNO ID: [id number] Author: LUMA HOOKS LPN Service: ? Author Type: LICENSED NURSE Type: Progress Notes Filed: 11/13/2024 13:54 Note Text: AMB ROOMING INTAKE FLOWSHEET DATA Patient presents with: Right Great Toe - Established Patient, Follow Up, procedure Luma Hooks LPN [facility] 10-27-2024 Telephone encounter Note Patient notified of results and provider's instructions. Patient verbalizes understanding. Patient states toe is feeling better. Luma Hooks LPN [facility] Work Phone: 10-27-2024 Miscellaneous Notes Patient notified of results and provider's instructions. Patient verbalizes understanding. Patient states toe is feeling better. Luma Hooks LPN Please call patient to inform her that xrays do not show any acute pathology or fracture Emily Ribera DPM documented in this encounter [facility] 10-25-2024 Telephone encounter Note Please call patient to inform her that xrays do not show any acute pathology or fracture Emily Ribera DPM [facility] Work Phone: 10-23-2024 History of Presen [...] PATIENT PRESENTS WITH AN IMPLANTABLE OR ATTACHED MARKETING AREA MANAGER: No RADIOLOGY DEPARTMENT: General X-ray: Exam(s) Completed: Lower Extremity X-Ray(s): Toes, Right, GREAT TOE PERIPHERAL IV DATA: Not applicable SIGNED BY: PRIYA Lanza) October 23, 2024 11:53 AM documented in this encounter [facility] 10-23-2024 Note HNO ID: [id number] Author: KAREN EDWARDS RT(R) Service: ? Author [...] PATIENT PRESENTS WITH AN IMPLANTABLE OR ATTACHED MARKETING AREA MANAGER: No RADIOLOGY DEPARTMENT: General X-ray: Exam(s) Completed: Lower Extremity X-Ray(s): Toes, Right, GREAT TOE PERIPHERAL IV DATA: Not applicable SIGNED BY: Karen Edwards, RT(R) October 23, 2024 11:[address] [facility] 10-23-2024 Note HNO ID: [id number] Author: LUMA HOOKS LPN Service: ? Author [...] Visit completed when applicable. Luma Hooks LPN [facility] 10-23-2024 History of Presen t illness Narrative [...] MEDICAL HISTORY Diagnosis Date RA (rheumatoid arthritis) ([facility]) Current Outpatient Medications Medication Sig naproxen (NAPROSYN) [...] Ribera DPM Podiatry [address] [facility] [address] Dept: [phone] Dept Patient presents with: Right Great Toe [...] for the pain. documented in this encounter [facility] 10-23-2024 Instructions Emily Ribera - 10/23/2024 [...] as well if you have any questions/concerns [phone], ask for Podiatry Nurse documented in this encounter [facility] 10-23-2024 Note HNO ID: [id number] Author: EMILY RIBERA, ? Service: ? Author [...] MEDICAL HISTORY Diagnosis Date RA (rheumatoid arthritis) ([facility]) Current Outpatient Medications Medication Sig naproxen (NAPROSYN) [...] removal of th (more content not included)... [facility] 10-23-2024 Note HNO ID: [id number] Author: NATALIA DE LA GARZA MA Service: ? Author Type: Airport Maintenance Chief Type: Progress Notes Filed: 10/23/2024 10:39 Note [...] bleeding. Taking no med's for the pain. [facility] 09-22-2024 Note HNO ID: [id number] Author: MELINDA LANE PA-C Service: ? Author Type: Physician Field Kiln Burner Type: Progress Notes Filed: 09/22/2024 13:29 Note Text: Melinda Lane PA-C Department of Orthopaedics Orthopaedics [facility] [address] [facility] [address] Dept: [phone] Dept September 22, 2024 Consultation requested by [...] knee joint Informed Consent Consent Obtained: Verbal Paradis Protocol A moment to CARE was completed. [...] voiced understanding of (more content not included)... [facility] 09-22-2024 History of Presen t illness Narrative Associated Order(s): Large Joint Arthro/Inj: R knee joint Post-Procedure Diagnose(s): Primary osteoarthritis of right knee Melinda Lane PA-C Department of Orthopaedics Orthopaedics [address] [facility] [address] Dept: [phone] Dept September 22, 2024 Consultation requested by [...] knee joint Informed Consent Consent Obtained: Verbal Paradis Protocol A moment to CARE was completed. [...] applicable Imaging: IMPRESSION: Severe right knee osteoarthritis. Criminology Teacher: HERI Transcribe Date/Time: Jul 02 2024 7:45A [...] anxiety) This note was partially generated using Jammin Java voice recognition system, and there may be [...] Luma Hooks LPN documented in this encounter [facility] 09-22-2024 Note HNO ID: [id number] Author: LUMA HOOKS LPN Service: ? Author [...] - New, Knee Pain Luma ISRA Hooks [facility] 07-10-2024 Note HNO ID: [id number] Author: TAMIA SERRANO MA Service: ? Author Type: Airport Maintenance Chief Type: Progress Notes Filed: 07/10/2024 08:54 Note Text: POPULATION HEALTH NAVIGATION OUTREACH Action/FYI Letter received and sent to be mailed. Navigation Signature: Tamia Serrano MA July 10, 2024 8:[address] [facility] 07-07-2024 Note HNO ID: [id number] Author: KRISTEL HERNANDEZ MA Service: ? Author Type: Airport Maintenance Chief Type: Progress Notes Filed: 07/07/2024 16:21 Note [...] Hernandez MA July 07, 2024 11:[address] [facility] 07-07-2024 History of Presen t illness Narrative [...] 2024 11:03 AM documented in this encounter [facility] 07-07-2024 Note Patient Outreach (HITESH KIM) MILAGRO COTTRELL ([id number]) 1955 F Date Time Provider Department 07/07/24 [...] Visit: Population Health Navigation Outreach [3910] Cmt: [facility] WORKBENCTerrance MONTANEZ PCSA Prescriptions as of 07/10/2024 - naproxen (NAPROSYN) 500 mg tablet take 1 tablet by mouth twice a day if needed for pain with food - Multivitamin capsule Take 1 capsule by mouth once daily. Problem List As Of Date 07/07/2024 Noted Resolved Knee pain [M25.569] 12/13/2018 Encounter Status:Closed by KRISTEL HERNANDEZ on 07/07/24 [facility] 07-03-2024 Telephone encounter Note Called and updated patient, is not having any symptoms and will wait until next visit to review need for thyroid medication. Katya Mancia LPN July 03, 2024 2:32 PM [facility] 07-03-2024 Telephone encounter Note ----- Message [...] appointment to start the medication. RegardsOlivier MD [facility] 07-03-2024 Miscellaneous Notes Called and updated [...] Olivier Conde MD documented in this encounter [facility] 07-03-2024 Telephone encounter Note Called and updated patient, has appointment with Orthopaedics in September. Katya Mancia LPN July 03, 2024 2:31 PM [facility] 07-03-2024 Telephone encounter Note ----- Message [...] place a consult Regards, Olivier Gomes MD [facility] 07-03-2024 Miscellaneous Notes Called and updated [...] Olivier Gomes MD documented in this encounter [facility] 06-26-2024 Telephone encounter Note Requesting 90 [...] Please advise. Thank you. Kaleigh Cordoba LPN. [facility] 06-26-2024 Miscellaneous Notes Requesting 90 day [...] Kaleigh Cordoba LPN. documented in this encounter [facility] 06-24-2024 History of Presen t illness [...] PATIENT PRESENTS WITH AN IMPLANTABLE OR ATTACHED MARKETING AREA MANAGER: No RADIOLOGY DEPARTMENT: General X-ray: Exam(s) Completed: Lower Extremity X-Ray(s): Knee, AP / Lat / Tunne / Merchant Right and Wt. Bearing PERIPHERAL IV DATA: Not applicable SIGNED BY: PRIYA Michael) June 24, 2024 12:30 PM documented in this encounter [facility] 06-24-2024 Note HNO ID: [id number] Author: UMAIR VALLEJO RT(R) Service: Radiology Author [...] PATIENT PRESENTS WITH AN IMPLANTABLE OR ATTACHED MARKETING AREA MANAGER: No RADIOLOGY DEPARTMENT: General X-ray: Exam(s) Completed: Lower Extremity X-Ray(s): Knee, AP / Lat / Tunne / Merchant Right and Wt. Bearing PERIPHERAL IV DATA: Not applicable SIGNED BY: RT Fernanda(Juan) June 24, 2024 12:[address] [facility] 06-24-2024 History of Presen t illness [...] Olivier Gomes MD documented in this encounter [facility] 06-24-2024 Note HNO ID: [id number] Author: OLIVIER GOMES MD Service: ? Author [...] BOTH/PA BOTH/LAT/MERC RIGHT (more content not included)... [facility] 04-16-2024 Note Patient Outreach (IN TMMN) MILAGRO COTTRELL ([id number]) 1955 F Date Time Provider Department 04/16/24 OLIVIER GOMES During your visit today, we recorded the following information about you: Allergies As of Date: 04/16/2024 Noted Allergy Reaction PENICILLINS 05/20/2018 2 - Rash 4 - Hives 9 - Itching SULFAMETHOXAZOLE 06/23/2022 9 - Itching TAPE (ADHESIVE TAPE (ROSINS)) 06/23/2022 2 - Rash Comments: paper tape Date Reviewed: 01/14/2024 Reviewed by: Yaneth Chau APRN.BUSHWALKING GUIDE - Fully Assessed Visit Diagnosis:Encounter for screening mammogram for breast cancer [Z12.31] Order(s):RAJENDRA SCREENING Farheen LOVE [[id number]] Order #: [id number] FUTURE Prescriptions as of 04/21/2024 - naproxen (NAPROSYN) 500 mg tablet Take 1 tablet by mouth two times a day as needed (for pain/inflammation). Take with food. - Multivitamin capsule Take 1 capsule by mouth once daily. Problem List As Of Date 04/16/2024 Noted Resolved Knee pain [M25.569] 12/13/2018 Encounter Status:Closed by [employer] on 04/21/24 [facility] 01-24-2024 Miscellaneous Notes Checked with lab client [...] Patient said was done last week. Aware BARTENDER HELPER is out of office on Sunday. Please [...] Abs Lymph 1.00 - 4.00 k/uL 2.99 [place]% % 8.3 Abs [place] <0.87 k/uL 0.75 Eosin% % 1.8 Abs [...] Legend: (H) High documented in this encounter [facility] 01-24-2024 Telephone encounter Note Checked with lab client services to see if could run additional lab but sample have been discarded. Patient notified of providers message and verbalized understanding. She is also notified of additional labs are needed and that we were unable to run labs off previous sample. Patient verbalized understanding and will stop in to have them done. [facility] 01-24-2024 Telephone encounter Note Labs are [...] her convenience. May need treatment of thyroid. [facility] 01-23-2024 Telephone encounter Note Patient calling asking for her lab results. Patient said was done last week. Aware BARTENDER HELPER is out of office on Sunday. Please [...] Abs Lymph 1.00 - 4.00 k/uL 2.99 [place]% % 8.3 Abs [place] <0.87 k/uL 0.75 Eosin% % 1.8 Abs [...] 4.200 mIU/L 4.390 (H) Legend: (H) High [facility] 01-14-2024 History of Presen t illness [...] naproxen. She notes she has been walking [phone] steps per day. Has been decreasing intake. [...] MEDICAL HISTORY Diagnosis Date RA (rheumatoid arthritis) ([facility]) Social History Tobacco Use Smoking status: Former [...] deferred - RSV PRINTED PHARMACY INSTRUCTIONS - [employer] COVID-19 VACCINE (2022- SEASON) AGE 12+ YR [...] 6 mo follow up MD Yaneth Haskins APRN.BUSHWALKING GUIDE Medical Decision Making: Problems: Moderate: 2+ stable chronic illnesses Data: Unique test(s) ordered: 3+ Risk: Moderate: Drug management Medical Decision Making Level: 4 - Moderate documented in this encounter [facility] 11-16-2023 Miscellaneous Notes Pt called in as Pt outreach called her. Pt was transferred to scheduling to set up her mammogram and Medicare Wellness exam. documented in this encounter [facility] 11-16-2023 History of Presen t illness [...] 2023 10:23 AM documented in this encounter [facility] 07-03-2023 Miscellaneous Notes Pt called and [...] Miesha Fritz APRN.CNP documented in this encounter [facility] 12-22-2022 History of Presen t illness [...] Olivier Gomes MD documented in this encounter [facility] 10-11-2022 Miscellaneous Notes Patient has been [...] Rosa Guy LPN documented in this encounter [facility] 07-05-2022 Miscellaneous Notes Patient notified and [...] Olivier Gomes MD documented in this encounter [facility] 07-04-2022 Miscellaneous Notes Letter mailed to [...] Olivier Gomes MD documented in this encounter [facility] 06-26-2022 History of Presen t illness [...] 2022 11:36 AM documented in this encounter [facility] 06-23-2022 History of Presen t illness [...] Olivier Gomes MD documented in this encounter [facility]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 Medicine 08/17/24 Maureen Cornejo PA-C [address] [facility] [place] [address] Solar Sales Estimator Family Medicine 08/17/24 11/30/24 Senior Engineering Manager Relationship Specialty Start Date End Date Olivier Gomes MD [address] [place] [address] PCP - General Internal Medicine 10/28/18 Miesha Fritz APRN.LABOR LAW PROFESSOR [address] [place] [address] [facility] Internal Medicine 08/17/24 Senior Engineering Manager Relationship Specialty Start Date End Date Oilvier Gomes MD [address] [facility] [place] [address] PCP - General Internal Medicine 10/28/18 Miesah Fritz APRN.LABOR LAW PROFESSOR [address] [place] [address] [facility] Internal [facility] 08/17/24 Goals (unrecognized section and content) Goals may be documented in a n alternate section INFORMATION SOURCE (unrecogn ized section and content) DATE CREATED AUTHOR 03/08/2022 [facility] DATE CREATED AUTHOR 'Alyx SCHILLING 02/12/2025 [facility] FOR RECORDS PERTAINING TO PATIENTS WHO ARE [...] BE BASED ON THE PRIMARY CLINICAL RECORDS. [employer] provides no warranty or guarantee of the accuracy or completeness of information in this document.
[2025-04-09 02:53] LABS: Reflex Lactate? Y
[2025-04-09] MEDS: Lactated Ringers 1,000 ML 130 ML IV (03:06)
[2025-04-09 03:25] LABS: Hematocrit 34.5 % (37-47); Hemoglobin 10.5 g/dL (12.0-15.0); Immature Granulocytes Count 0.020 X10^3/uL (0.0-0.0); Mean Corp Hgb Conc 30.4 g/dL (32-36); Mean Corpuscular Volume 75.5 fL (81-99); Mean Platelet Vol. 10.9 fl (6.2-12.0); NRBC Flagged by Analyzer 0 % (0-5); Platelet Count 410 K/mm3 (150-450); RBC Distribution Width CV 17.2 % (11.6-14.6); RBC Distribution Width SD 46.7 fl (35.1-43.9); Red Blood Count 4.57 M/mm3 (4.2-5.4); White Blood Count 10.7 K/mm3 (4.4-11.0)
[2025-04-09 03:50] LABS: Anion Gap 13 (5-15); BUN 23 mg/dL (4-19); BUN/Creat Ratio 23.2 RATIO (10-20); Calcium,Total 8.5 mg/dL (7.6-11.0); Carbon Dioxide 20.9 mmol/L (21.0-32.0); Chloride 106 mmol/L (98-108); Estimated Creatinine Clearance 63.11 ml/min (50-250); Glucose 142 mg/dL (70-99); Potassium 3.9 mmol/L (3.3-5.1)
--- NOTE | 2025-04-09 05:55 | RAD_ITS ---
PROCEDURE: ABDOMEN SINGLE VIEW (PORTABLE) 04/09/2025 REASON FOR EXAM: SBO TECHNIQUE: Three-view supine abdomen COMPARISON: Head Filter Press Tender from the CT examination of 04/08/2025. normal RAD/Abdomen Single View (Portable) IMPRESSION: Residual contrast material is seen within the urinary bladder. Multiple air-filled but nondilated small bowel loops are seen, predominantly in the left abdomen. Air and stool are seen throughout the large bowel and rectum. No significant interval osseous change is seen, with prominent degenerative neena nges of the spine again noted mild sacroiliac joint degenerative changes are again seen. Reading Location: [place] [address]
--- NOTE | 2025-04-09 07:49 | HP.PCM_ITS ---
HPI - General General Date of Admission: 04/08/25 Date of Service: 04/09/25 Chief Complaint: Abdominal pain HPI Narrative MISSAEL OH, is a 70 F who presents with a 1 day history of generalized abdominal pain. She notes waking up around 0900AM yesterday morning and had abdominal pain, however thought it maybe was hunger pains. She notes eating eggs. At approximately 11 AM she developed worsening abdominal pain with associated nausea, vomiting. She notes having 3 normal solid bowel movements yesterday prior to coming to the ED. She denies being around any sick contacts or recent potluck dinners. She denies having any previous episodes such as this. She notes around 0400 AM this morning, she had 2 large loose stools. She notes her abdominal pain has improved. She denies any further nausea or vomiting. She notes her only abdominal surgery was a . She denies any cardiac or pulmonary history. She had a colonoscopy years ago, not around here. She denies any family or personal history of colon cancer. She denies any history of constipation. CT scan was obtained in the ED which demonstrated IMPRESSION: Distal small-bowel obstruction, transition in the mid pelvis, probably on the basis of adhesions. Critical results discussed with Dr. Torre at 11:40 p.m. [facility] Medical History Osteoarthritis Burn injury Home Medications ?Medication ?Instructions ?Recorded ?Last Taken ?Type naproxen 500 mg tablet 500 mg PO DAILY pain 8 11/09/17 History Allergy/AdvReac Type Severity Reaction Status Date / Time adhesive tape Allergy Itching Verified 04/08/25 20:26 latex Allergy Itching Verified 04/08/25 20:26 Penicillins (PCN) Allergy Hives Verified 04/08/25 20:26 Sulfa (Sulfonamide AdvReac Rash Verified 04/08/25 20:26 Antibiotics) Family History no significant family his Surgical History H/O section Social History Smoking Status: Never smoker ROS Constitutional Constitutional: Reports systems reviewed and no addt'l complaints, except as documented Eyes Eyes: Reports systems reviewed and no addt'l complaints, except as documented ENT HEENT: Reports systems reviewed and no addt'l complaints, except as documented Cardiovascular Cardiovascular: Reports systems reviewed and no addt'l complaints, except as documented Respiratory/Chest Respiratory/Chest: Reports systems reviewed and no addt'l complaints, except as documented Gastrointestinal Gastrointestinal: Reports systems reviewed and no addt'l complaints, except as documented Genitourinary Genitourinary: Reports systems reviewed and no addt'l complaints, except as documented Musculoskeletal Musculoskeletal: Reports systems reviewed and no addt'l complaints, except as documented Integumentary Integumentary: Reports systems reviewed and no addt'l complaints, except as documented Neurologic Neurologic: Reports systems reviewed and no addt'l complaints, except as documented Psychiatric Psychiatric: Reports systems reviewed and no addt'l complaints, except as documented Endocrine Endocrinology: Reports systems reviewed and no addt'l complaints, except as documented Hematologic/Lymphatic Hematologic/Lymphatic: Reports systems reviewed and no addt'l complaints, except as documented Allergic/Immunologic Allergic/Immunologic: Reports systems reviewed and no addt'l complaints, except as documented Vital Signs Vital Signs Vital Signs: 04/08/25 20:25 04/08/25 20:30 04/08/25 22:19 Temperature 98.7 F 98.7 F 98.7 F Temperature Source Oral Oral Oral Pulse Rate 128 H 128 H 102 H Respiratory Rate 16 16 16 Respiratory Effort Respiratory Depth Respiratory Pattern Blood Pressure 136/109 H 136/109 H 176/73 H Blood Pressure Mean 118 118 107 Blood Pressure Source Blood Pressure Position Blood Pressure Location Pulse Ox 98 98 92 Oxygen Delivery Method Room Air Room Air Room Air 04/08/25 23:00 04/09/25 00:00 04/09/25 00:52 Temperature 98.7 F 98.5 F 98.2 F Temperature Source Oral Oral Pulse Rate 88 85 83 Respiratory Rate 16 16 14 Respiratory Effort Respiratory Depth Respiratory Pattern Blood Pressure 160/60 H 159/81 H 164/78 H Blood Pressure Mean 93 107 106 Blood Pressure Source Blood Pressure Position Blood Pressure Location Pulse Ox 97 98 98 Oxygen Delivery Method Room Air Room Air 04/09/25 01:00 04/09/25 01:07 04/09/25 02:00 Temperature 98.5 F Temperature Source Oral Pulse Rate 78 98 82 Respiratory Rate 18 16 16 Respiratory Effort Normal Non-Labored Respiratory Depth Normal Respiratory Pattern Normal Blood Pressure 164/78 H 141/65 H Blood Pressure Mean 106 90 Blood Pressure Source Blood Pressure Position Blood Pressure Location Pulse Ox 97 96 93 Oxygen Delivery Method Room Air Room Air Room Air 04/09/25 02:30 Temperature 98.6 F Temperature Source Temporal Pulse Rate 89 Respiratory Rate 15 Respiratory Effort Respiratory Depth Respiratory Pattern Blood Pressure 137/80 H Blood Pressure Mean 99 Blood Pressure Source Monitor Blood Pressure Position Semi-Fowlers Blood Pressure Location Right Arm Pulse Ox 96 Oxygen Delivery Method Room Air Weight Weight: 216 lb 0.848 oz Body Mass Index (BMI) 37.0 Physical Exam Const alert, oriented x3 and no apparent distress HEENT normocephalic and head/scalp atraumatic Eyes PERRL Neck full ROM Lymph Lymphatic: no lymphadenopathy noted Resp normal respiratory effort and clear to auscultation bilaterally Cardio regular rate and regular rhythm GI GI Narrative: Abdomen- soft, obese, nontender. Hypoactive bowel sounds. no CVA tenderness Back/Spine no CVA tenderness Extremity normal to inspection Skin no rashes or lesions noted Neuro no focal motor deficits and no sensory deficits noted Psych mental status grossly normal, thought process normal, cooperative and affect normal Results Lab / Micro Data 04/09/25 03:17 04/09/25 03:17 Labs: Laboratory Results - last 24 hr 04/08/25 20:34: WBC 17.1 H, RBC 5.00, Hgb 11.3 L, Hct 37.6, MCV 75.2 L, MCH 22.6 L, MCHC 30.1 L, RDW Std Deviation 45.8 H, RDW Coeff of Sherry 17.3 H, Plt Count 482 H, MPV 11.4, Immature Gran % (Auto) 0.400, Neut % (Auto) 80.0 H, Lymph % (Auto) 13.3 L, [place] % (Auto) 6.0, Eos % (Auto) 0.1, Baso % (Auto) 0.2, Absolute Neuts (auto) 13.7 H, Absolute Lymphs (auto) 2.27, Nucleated RBC % 0, Sodium 140, Potassium 4.4, Chloride 104, Carbon Dioxide 20.7 L, Anion Gap 15, BUN 22 H, Creatinine 1.08, Estim Creat Clear Calc 64.26, Est GFR (MDRD) Non-Af 56 L, B UN/Creatinine Ratio 20.6 H, Glucose 179 H, Calcium 9.3, Total Bilirubin 0.44, AST 32, ALT 15, Alkaline Phosphatase 68, Total Protein 7.8, Albumin 4.1, Globulin 3.7, Albumin/Globulin Ratio 1.1, Lipase 15 04/08/25 22:14: Urine Color Yellow, Urine Clarity Sl. Cloudy, Urine pH 5.0, Ur Specific Jenners 1.025, Urine Protein 30 H, Urine Glucose (UA) Normal, Urine Ketones 5 H, Urine Occult Blood Negative, Urine Nitrite Negative, Urine Bilirubin 1 H, Urine Urobilinogen 1 H, Ur Leukocyte Esterase 25 H, Urine RBC 0 SEEN, Urine WBC 0 SEEN, Ur Squamous Epith Cells 0-5 SEEN, Amorphous Sediment 1+, Urine Bacteria 0 SEEN, Urine Mucus 0 SEEN 04/08/25 22:40: Lactic Acid 2.4 H* 04/09/25 03:17: WBC 10.7, RBC 4.57, Hgb 10.5 L, Hct 34.5 L, MCV 75.5 L, MCH 23.0 L, MCHC 30.4 L, RDW Std Deviation 46.7 H, RDW Coeff of Sherry 17.2 H, Plt Count 410, MPV 10.9, Immature Gran % (Auto) 0.200, Neut % (Auto) 70.8 H, Lymph % (Auto) 15.4 L, [place] % (Auto) 12.7 H, Eos % (Auto) 0.6, Baso % (Auto) 0.3, Absolute Neuts (auto) 7.6, Absolute Lymphs (auto) 1.65, Nucleated RBC % 0, Sodium 140, Potassium 3.9, Chloride 106, Carbon Dioxide 20.9 L, Anion Gap 13, B UN 23 H, Creatinine 0.97, Estim Creat Clear Calc 63.11, Est GFR (MDRD) Non-Af 64, BUN/Creatinine Ratio 23.2 H, Glucose 142 H, Lactic Acid 1.4, Calcium 8.5 Imaging Radiology Impression Abdomen/Pelvis CT 04/08/25 22:58 IMPRESSION: Distal small-bowel obstruction, transition in the mid pelvis, probably on the basis of adhesions. Critical results discussed with Dr. Torre at 11:40 p.m. Reading Location: [facility] Assessment & Plan Assessment/Plan (1) SBO (small bowel obstruction): PLAN: I have been consulted in conjunction with Dr. Uriarte. She will independently evaluated this patient. Patient is a 70 y/o F who presented with a 1 day history of abdominal pain with associated nausea, vomiting. CT scan demonstrated a small bowel obstruction likely caused by an adhesion. Plan will be to obtain a KUB this morning. If the KUB appears unremarkable, plan to increase patient's diet to full liquids. If KUB appears to have residual dilated small bowel, plan to obtain a small bowel follow-through. We will treat with conservative measures of IV fluids and bowel rest, with the understanding if her symptoms were to become worse, surgical intervention will be recommended. Plan has been discussed and explained to the patient. Patient has had the opportunity to ask and have questions answered. Patient verbally understands and agrees with the plan. Thank you for allowing us to participate in this patient's care. Charges/Coding Visit Charges Inpatient E&M: 76882 Init Hosp L2
--- NOTE | 2025-04-09 14:38 | CHAPLAIN ---
Type of Pastoral Visit _x__ Initial Visit ___ Follow-up Visit ___ On-call Visit ___ General Patient Visit ___ Spiritual Assessment ___ Family Conference ___ Bereavement ___ Rapid Response ___ Code Blue ___ Other (describe below) Pastoral Care Referral From _x__ Patient ___ Family ___ Nurse ___ Physician ___ Production Dispatcher ___ [employer] ___ Other (describe below) Sacrament/Intervention _x__ Active listening ___ Anointing ___ Bahai ___ Bereavement ___ Communion ___ Gisella exploration ___ ___ Life review ___ Prayer ___ Reconciliation ___ Sacrament of Sick ___ Supportive presence ___ Wedding ___ Other (describe below) Pastoral Comments at first attempt the patient had just started a phone conversation so this miter operator did not enter the room; on second attempt the patient is still talking on the phone but this miter operator entered the room; pt stops talking on the phone and says that miter operator may enter but she does not hang up the phone; offer of support; asking of questions about feelings, care, and needs of the patient; pt denies needs or concerns, pt states that she should be fine and affirms that she has no needs; pt did welcome a prayer for support today
--- NOTE | 2025-04-09 15:15 | DCINST_ITS ---
Discharge Instructions DC O2, CPAP, BIPAP needs Home O2 Discharge instructions: No Dressing / Incision Discharge Activity: Return to Normal Activity and No Restrictions Follow Up Care Please Follow Up With: Stephanie Uriarte MD When: Follow-up as needed Test Results: Test results from this visit will be discussed in further detail at your follow- up appointment, if applicable. Discharge Plan Admission Admit Date/Time: 04/08/25 23:58 Primary Reason for Your Visit: Constipation Attending Provider: Stephanie Uriarte Primary Care Provider: Amelia Burgess Discharge Orders/Prescriptions Prescriptions: Continued naproxen 500 MG tablet 500 mg PO DAILY Patient Comments: TAKE 1 TABLET BY MOUTH TWICE DAILY Referrals / Follow Up: Amelia Burgess MD [Primary Care Provider] - Disposition Disposition (needs filled in before D/C Order can be placed): Home, Self Care
--- NOTE | 2025-04-09 16:29 | CASEMGMT ---
YINKA LEONARD NOTE: Intro role of CM to patient and COUGHLIN form explained re: Observation status for treatment of small bowel obstruction.? Explained hospitalization will be paid per?her insurance policy for Outpatient billing?and condition will continue to be evaluated for Inpt necessity. Also let pt know that [facility] sends paper in the billing packet with their phone number if questions arise. Pt verbalizes understanding and does not have further questions. ?Form signed, copy made and placed in chart, and original given to pt. Tia QUINTANA RN CM
== END 2025-04-09 19:27 | disposition home or self-care (01) ==
LOC: ED 04-09 00:36 → MS3 04-09 01:02
PROVIDERS: Admitting Provider Surgery; Emergency Provider Emergency Medicine; PCP Internal Medicine; Visit Provider Surgery
DX: K56.609 Unspecified intestinal obstruction, unspecified as to partial versus complete obstruction (principal); E87.20 Acidosis, unspecified; D72.829 Elevated white blood cell count, unspecified; R73.9 Hyperglycemia, unspecified; M19.90 Unspecified osteoarthritis, unspecified site
CPT/HCPCS: 36415; 74018; 74177; 80048; 80053; 81001; 83605; 83690; 85025; 96361; 96374; 99221; 99285; Q9967; A4216; G0378; J2405